=== PATIENT | male | born 1950 | race Caucasian/White ===

== ENCOUNTER 2018-05-28 01:34 | Outpatient (CLI) | payer BC ==
[2018-05-28 12:58] LABS: Hemoglobin 14.9 g/dL (14.0-18.0); Mean Corpuscular HGB CONC 33.7 g/dL (32.0-36.0); Mean Corpuscular Volume 88.9 fL (78.0-98.0); Mean Platelet Volume 8.6 fL (7.4-10.4); Platelet Count 189 thou/uL (130-400); RBC Distribution Width 11.6 % (11.5-14.5); Red Blood Cell (RBC) Count 4.95 mill/uL (4.70-6.10); White Blood Cell (WBC) Count 8.2 thou/uL (4.8-10.8)
[2018-05-28 13:08] LABS: Anion Gap 13 mmol/L (10-20); BUN (Urea Nitrogen) 18 mg/dL (8.4-25.7); Calc. Creatinine Clearance 0 mL/min (70-130); Calcium 9.7 mg/dL (7.8-10.44); Carbon Dioxide 28 mmol/L (23-31); Chloride 106 mmol/L (98-107); Estimated GFR-MDRD Greater than 90; Glucose 105 mg/dL (80-115); Potassium 4.7 mmol/L (3.5-5.1); Sodium 142 mmol/L (136-145)
== END 2018-05-28 01:35 | disposition home or self-care (01) ==
LOC: LABBT 01:34
PROVIDERS: ATTEND Neurological Surgery
DX: Z01.818 Encounter for other preprocedural examination (principal); D49.6 Neoplasm of unspecified behavior of brain
CPT/HCPCS: 80048; 85027; 93005; 93010

== ENCOUNTER 2018-05-28 09:00 | Inpatient (IN) | payer BC ==
[2018-05-29] MEDS ORDERED: Fentanyl 250 MCG/5 ML VIAL ONE (06:13)
[2018-05-29] MEDS ORDERED: Sodium Chloride 0.9% 0 ML ONE ×2 (06:46→09:05)
[2018-05-29] MEDS ORDERED: Bacitracin Zinc Ointment 30 gm TUBE ONE (06:46)
[2018-05-29] MEDS ORDERED: Mannitol 12.5 GM/50 ML ONE ×2 (06:48→08:28)
[2018-05-29] MEDS ORDERED: Fentanyl 100 MCG/2 ML VIAL ONE ×4 (08:39→14:53)
[2018-05-29] MEDS ORDERED: Papaverine 60 MG/2 ML VIAL ONE (09:05)
[2018-05-29] MEDS ORDERED: Benzonatate 100 MG CAP PO PRN (11:31)
[2018-05-29] MEDS ORDERED: Promethazine HCl 25 MG SUPP PR PRN (11:55)
[2018-05-29] MEDS ORDERED: HYDROcodone/Acetaminophen 10/325 mg Tablet PO PRN ×2 (11:55)
[2018-05-29] MEDS ORDERED: Mag-Al 1200 mg/1200 mg/30 ML UDCUP PO PRN (11:55)
[2018-05-29] MEDS ORDERED: Acetaminophen 325 MG TAB PO PRN (11:55)
[2018-05-29] MEDS ORDERED: diphenhydrAMINE 50 MG/ML VIAL IVP PRN (11:55)
[2018-05-29] MEDS ORDERED: Promethazine HCl 25 MG/ML VIAL IM PRN (11:55)
[2018-05-29] MEDS ORDERED: Cepastat Lozenges 1 LOZ PO PRN ×2 (11:55→12:30)
[2018-05-29] MEDS ORDERED: Promethazine 25 MG TAB PO PRN (11:55)
[2018-05-29] MEDS ORDERED: Ondansetron PF 4 MG/2 ML Vial IVP PRN (11:55)
[2018-05-29] MEDS ORDERED: Docusate 100 MG CAP PO PRN (11:55)
[2018-05-29] MEDS ORDERED: diphenhydrAMINE 50 MG CAP PO PRN (11:58)
[2018-05-29] MEDS ORDERED: Acetaminophen 650 MG Suppository PR PRN (12:06)
--- NOTE | 2018-05-29 12:15 | OP ---
DATE OF PROCEDURE: 05/29/2018 HAT AND CAP OPENER: Darleen Pagan PA-C PROCEDURES PERFORMED: Right parietal craniotomy, resection of tumor, stereotactic intracranial navigation. DESCRIPTION OF PROCEDURE: The patient was brought to the operating room and intubated. He was positioned supine with the head turned to the left, fixed in a Maciej heading and priming tool setter. Using the stereotactic intracranial navigation system, we registered this to the patient's head and then used this to plan the incision in the craniotomy. We next performed a horseshoe-shaped incision, flapped inferiorly and a standard craniotomy. The dura was then reflected medially. A corticotomy was performed. We immediately encountered tumor and cyst, which was aspirated. Frozen section was sent, suggestive of high-grade glioma. The tumor appearance was suggestive of high-grade glioma and had infiltrative margins throughout with no definable margin. We resected all meaty tumor and aspirated all components of cyst. We attempted to develop a margin around the tumor, but in most areas, the tumor seemed to extend, passed the radiographic abnormality. I would consider this a subtotal resection. The cavity was then irrigated and hemostasis was secured. The dura was reapproximated with 4-0 silk suture and the skull was replaced with titanium microplates and screws. The scalp was then closed in anatomic layers. Job ID: [id number]
[2018-05-29] MEDS ORDERED: Morphine 2 MG/ML SYRINGE SLOW IVP PRN (12:30)
[2018-05-29] MEDS ORDERED: Lidocaine 1% PF 5 ML VIAL ONE (15:21)
[2018-05-29] MEDS ORDERED: Esmolol 100 MG/10 ML VIAL ONE (15:21)
[2018-05-29] MEDS ORDERED: ePHEDrine 50 MG/ML VIAL ONE (15:21)
[2018-05-29] MEDS ORDERED: Rocuronium Bromide 10 MG/ML (10ML VIAL) ONE (15:21)
[2018-05-29] MEDS ORDERED: Ondansetron PF 4 MG/2 ML Vial ONE (15:21)
[2018-05-29] MEDS ORDERED: Dexamethasone 20 MG/5 ML VIAL ONE (15:21)
[2018-05-29] MEDS ORDERED: Glycopyrrolate 0.2 MG/ML 5 ML SYRINGE ONE (15:21)
[2018-05-29] MEDS ORDERED: PROPOFOL 200 MG/20 ML VIAL ONE (15:21)
[2018-05-29] MEDS: CEFAZOLIN 2 GM in Premix Bag 1 BAG IVPB SCH ×2 (16:22→23:48)
[2018-05-29] MEDS: Sodium Chloride 0.9% 1,000 ML IV SCH ×2 (16:22→23:51)
[2018-05-29] MEDS: Morphine 4 MG/ML VIAL SLOW IVP PRN ×2 (16:23→18:34)
[2018-05-29] MEDS: niCARdipine HCl 25 MG in Sodium Chloride 0.9% 250 ML 240 ML IVPB SCH ×3 (16:57→22:21)
[2018-05-29] MEDS: Loratadine 10 MG TAB PO SCH (20:18)
[2018-05-29] MEDS: Atorvastatin Calcium 40 MG TAB PO SCH (20:18)
[2018-05-29] MEDS: Lisinopril 2.5 MG TAB PO SCH ×2 (20:18→20:25)
[2018-05-29] MEDS: Famotidine 20 MG TAB PO SCH (20:19)
[2018-05-29] MEDS ORDERED: Lisinopril 20 MG TAB PO SCH (20:45)
--- NOTE | 2018-05-29 21:56 | CON ---
DATE OF CONSULTATION: HISTORY OF PRESENT ILLNESS: Ronn Villaotro is a 67-year-old gentleman, lifelong nonsmoker, status post craniotomy by Dr. Bob Sexton, Pulmonary/Critical Care, seeing while in the ICU. Except for some right posterior scapula pain, he denies any other symptoms. 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 The patient denies any recent coughing, wheezing, or shortness of breath. He has allergies and is taking some allergy medication. PAST MEDICAL HISTORY: Pertinent mainly for hypertension, environmental allergies, and high cholesterol. MEDICATIONS: Chronic medication; 1. Lisinopril 2.5. 2. Zyrtec 10. 3. Tessalon Perles _200 mg_ p.r.n. 4. ptotonix 40 mg once a day. 1. Aspirin 325. ALLERGIES: CODEINE. PAST SURGICAL HISTORY: Surgeries include a right hip surgery about a year ago and some surgery on his left hand. 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 REVIEW OF SYSTEMS: Otherwise, 10-point negative. PHYSICAL EXAMINATION: GENERAL: Awake, alert, responsive, in no distress. VITAL SIGNS: His pulse is 95, blood pressure is 141/46, sats are 96%, and respiratory rate 18. CHEST: Reveal no wheezing or crackles. CARDIAC: Normal S1 and S2. No gallops. ABDOMEN: Soft. NEUROLOGIC: Awake, alert, and responsive. LABORATORY DATA: H and H unremarkable at 14 and 42. His chemistry profile is unremarkable. GFR is 84. IMPRESSION: 1. Status post craniotomy for a right posterior fossa tumor. 2. Hypertension. 3. Allergic rhinitis. 4. High cholesterol. PLAN: Pulmonary/Critical Care will follow while in the ICU. He is right now on a Cardene drip. When he is stable, switch over to old medication. Consultation note, 70 minutes, 50% direct patient care. Job ID: [id number] MTDD
[2018-05-30] MEDS: niCARdipine HCl 25 MG in Sodium Chloride 0.9% 250 ML 240 ML IVPB SCH ×3 (00:38→07:13)
--- NOTE | 2018-05-30 04:22 | CON ---
DATE OF CONSULTATION: PRIMARY CARE PHYSICIAN: Carlos Monson MD CODE STATUS: Full code. TIME OF EVALUATION: 8:30 p.m. CHIEF COMPLAINT: Unable to see on the left side. HISTORY OF PRESENT ILLNESS: This is a 67-year-old male patient with past medical history of hypertension, high cholesterol, came to the hospital after having symptoms where the patient was unable to see on the left side of his visual field. The symptoms were severe and has been gradually getting worse with no clear triggers, no alleviating factors. The patient was admitted by Dr. Sexton and received craniotomy due to right posterior fossa high-grade glioma, as per initial results from surgery, the patient also was reportedly having confusion, by the time of my examination, he seems to be oriented and very lucid, no other significant medical problems. The symptoms were severe. The patient also has associated hypertensive emergency. During my examination, it was noted the patient is on Cardene drip of 15 mg an hour. We have been called for consultation for assistance with medical management of the patient. REVIEW OF SYSTEMS: CONSTITUTIONAL: The patient has no fever, no chills. No generalized weakness. The patient was noted to be confused. RESPIRATORY: No cough, sputum production, or shortness of breath. CARDIOVASCULAR: No chest pain or palpitations. GASTROINTESTINAL: No nausea, vomiting, diarrhea, or abdominal pain. ZINC PLATER: The patient has reportedly confusion prior to surgery with left visual field abnormalities. GENITOURINARY: No burning on urination. EXTREMITIES: No leg swelling. All other systems were reviewed and negative except for the findings mentioned above. PAST MEDICAL HISTORY: Positive for hypertension and high cholesterol. FAMILY HISTORY: Reviewed, noncontributory for current presentation. SOCIAL HISTORY: The patient lives with . PAST SURGICAL HISTORY: Right hip surgery about a year ago, and left hand surgery. ALLERGIES: CODEINE. REPORTED MEDICATIONS: 1. Lisinopril. 2. Zyrtec. 3. Tessalon. 4. Aspirin. PHYSICAL EXAMINATION: VITAL SIGNS: Blood pressure has been above 140 occasionally. The patient was in Cardene drip at 15 mg an hour. The patient is still having systolic blood pressure above 140s. No fever, heart rate has been in the 80s and may be within normal limits. GENERAL APPEARANCE: The patient is alert, oriented, not in acute distress. HEENT: Eyes, normal conjunctivae. Moist oral mucosa. Anicteric. NECK: No JVD. RESPIRATORY: Bilateral air entry. No rales or wheezes. Symmetric expansion. CARDIOVASCULAR: Normal rate, regular rhythm. No murmurs, no gallops, no edema. ABDOMEN: Soft. Normal bowel sounds. MUSCULOSKELETAL: Baseline range of motion and strength. No tenderness. SKIN: Warm, intact. No pallor. No rash. No redness. Peripheral pulses are present. Capillary refill seems to be intact. NEUROLOGIC: The patient has left basal field affected, status post craniotomy. PSYCH: Good mood. No anxiety. Seems to be with good judgment at this point. DIAGNOSTIC STUDIES: Brain MRI was done prior to surgery. The patient has right parieto-occipital mass with peripheral nodular enhancement, diffusion restriction and small volume hemorrhage within the wall. There is mild vasogenic edema with minimal mass effect, tumor in the right lateral ventricle. No other foci of enhancement. LABORATORY DATA: Labs were reviewed. The patient has white count 8.2, hemoglobin 14.9, MCV 88.9, platelet count 189. Chemistry; sodium 142, potassium 4.7, chloride 106, carbon dioxide 28, anion gap 13, BUN 18, creatinine 0.8, GFR 84, glucose 105, calcium 9.7. ASSESSMENT AND PLAN: The patient will be placed in the hospital with following medical problems: 1. Right posterior fossa high-grade glioma, status post craniotomy surgery, Dr. Sexton has admitted the patient, is following this problem. 2. Hypertensive emergency, the patient has a very high dose of Cardene drip and see blood pressure is now fully controlled after starting home medications p.o. that we will be added until we are able to stop the drip. 3. High cholesterol, low-cholesterol diet is advised. Home medications have been reconciled. 4. Deep venous thrombosis prophylaxis as per Surgery recommendations. 5. Risk assessment, high risk of complication due to recent surgery and hypertensive emergency. Critical care time more than 35 minutes spent in the patient's evaluation, patient counseling and review and evaluation of records. Job ID: [id number] MTDD
[2018-05-30] MEDS ORDERED: Amlodipine 5 MG TAB PO SCH (08:00)
[2018-05-30] MEDS: Famotidine 20 MG TAB PO SCH ×2 (08:17→21:07)
[2018-05-30] MEDS: Carvedilol 3.125 MG TAB PO SCH ×2 (08:17→21:06)
--- NOTE | 2018-05-30 08:23 | PRG ---
DATE OF SERVICE: 05/30/2018 SUBJECTIVE: Ronn Villatoro, a 67-year-old gentleman, awake, alert and responsive in the ICU. OBJECTIVE: VITAL SIGNS: Pulse 95, blood pressure 149/65, sats 98% on room air, blood pressure 130/60. He is on Cardene low-dose 3 mg. His home blood pressure medications have been initiated. CHEST: Decreased breath sounds, no wheezing. CARDIAC: Normal S1, S2. No gallops. ABDOMEN: No masses. IMPRESSION: 1. Hypertension, status post craniotomy. 2. Cough. PLAN: 1. Hopefully, we can discontinue his A-line. 2. Started Norvasc. 3. Supportive care. DISPOSITION: As per surgery. Job ID: [id number]
[2018-05-30 08:25] LABS: Sodium 139 mmol/L (136-145)
[2018-05-30] MEDS ORDERED: Lisinopril 20 MG TAB PO SCH (09:00)
--- NOTE | 2018-05-30 09:27 | PDOC.PN ---
- Subjective Encounter Start Date: 05/30/18 Encounter Start Time: 11:30 Subjective: Patient feeling well. No SOB/Chest pain. No headache. Some -: constipation, hasn't taken anything for it yet. - Objective MAR Reviewed: Yes Vital Signs & Weight: Vital Signs (12 hours) Temp Pulse BP 05/30/18 08:18 85 138/58 L 05/30/18 04:00 98.3 F 05/30/18 00:00 98.4 F Weight Admit Weight 4.691 oz Weight 208 lb 1.862 oz Most Recent Monitor Data Heart Rate from ECG 83 NIBP 136/70 NIBP BP-Mean 92 Respiration from ECG 16 SpO2 93 I&O: 05/29/18 05/30/18 05/31/18 06:59 06:59 06:59 Intake Total 4829 Output Total 2870 Balance 195 Result Diagrams: 05/30/18 07:19 Additional Labs: Accuchecks 05/30/18 05:30 POC Glucose 133 H Phys Exam - Physical Examination Constitutional: NAD HEENT: moist [facility] craniotomy site c/d/i Respiratory: no wheezing, no rales, no rhonchi Cardiovascular: RRR, no significant murmur Gastrointestinal: soft, positive bowel sounds Neurological: non-focal, moves all 4 limbs Psychiatric: normal affect, A&O x 3 Dx/Plan (1) Glioma of brain Status: Acute Comment: right posterior fossa, s/p resection by neurosurgery (2) Hypertension Code(s): I10 - ESSENTIAL (PRIMARY) HYPERTENSION Status: Acute Qualifiers: Hypertension type: essential hypertension Qualified Code(s): I10 - Essential (primary) hypertension Comment: urgency resolved, Cardene drip to keep SBP < 140 per neurosurgery (3) Hyperlipidemia Code(s): E78.5 - HYPERLIPIDEMIA, UNSPECIFIED Status: Chronic (4) Constipation Code(s): K59.00 - CONSTIPATION, UNSPECIFIED Status: Acute Comment: change colace to scheduled and add Senna prn - Plan cont current plan of care, PT/OT, DVT proph w/SCDs * . - Discharge Day Encounter end time: 11:40
[2018-05-30] MEDS ORDERED: Senokot 8.6 MG TAB PO PRN (12:53)
[2018-05-30 20:41] LABS: Sodium 142 mmol/L (136-145)
[2018-05-30] MEDS: Atorvastatin Calcium 40 MG TAB PO SCH (21:06)
[2018-05-30] MEDS: Docusate 100 MG CAP PO SCH (21:06)
[2018-05-30] MEDS: Loratadine 10 MG TAB PO SCH (21:07)
[2018-05-31 00:38] LABS: Sodium 141 mmol/L (136-145)
[2018-05-31 06:58] LABS: Sodium 136 mmol/L (136-145)
--- NOTE | 2018-05-31 07:35 | CT ---
CT BRAIN WITHOUT CONTRAST: History: Status post craniotomy. Comparison: MRI brain with and without contrast 05-28-18. FINDINGS: Since the comparison examination there has been interval performance of a right parietal craniotomy w ith partial resection of the peripherally calcified mass within the right parietal lobe. Small amount of pneumocephalus is now present within the right aspect of the cranial vault both along the anterio r frontal vertex and along the parietal vertex and within the resection cavity. There is moderate nicola rounding vasogenic edema, slightly more pronounced than seen on the comparison MR examination. No def inite acute infarct is evident. No apparent midline shift is noted. No definite hydrocephalus is evid ent. The basal cisterns are patent. There is mild partial mastoid effusions bilaterally. IMPRESSION: 1. Interval right parietal craniotomy with partial resection of the partially calcified mass within t he right parietal lobe, slightly worsening surrounding perilesional vasogenic edema with mild effacem ent of portions of the right parietal lobe cortex. 2. Small amount of pneumocephalus. 3. No midline shift of acute intracranial infarct. 4. Partial mastoid effusions bilaterally. POS: RAFAEL
[2018-05-31] MEDS: Carvedilol 3.125 MG TAB PO SCH ×2 (08:41→17:54)
[2018-05-31] MEDS: Amlodipine 5 MG TAB PO SCH (08:47)
[2018-05-31] MEDS: Famotidine 20 MG TAB PO SCH ×2 (08:48→20:19)
[2018-05-31] MEDS: Docusate 100 MG CAP PO SCH ×2 (08:48→20:19)
--- NOTE | 2018-05-31 08:52 | PRG ---
DATE OF SERVICE: 05/31/2018 SUBJECTIVE: This morning, he is awake, alert, and responsive. OBJECTIVE: VITAL SIGNS: His temperature is 98, pulse 66, blood pressure 139/92, respiratory rate 18. His I's and O's have been 5558 in, 8066 out. He was given one dose of DDAVP for presumed DI. I do not see any electrolyte this morning. CHEST: Decreased breath sounds. No wheezing. CARDIAC: Normal S1 and S2. No gallops. ABDOMEN: No masses. IMPRESSION: 1. Status post craniotomy. Initial pathology, high-grade glioma. 2. Excessive urine output, probable diabetes insipidus. We will get electrolyte profile this morning. Blood pressure is well controlled. PLAN: 1. Adjust blood pressure medication. 2. We will follow. Job ID: [id number]
--- NOTE | 2018-05-31 09:44 | PDOC.PN ---
- Subjective Encounter Start Date: 05/31/18 Encounter Start Time: 11:00 Subjective: Patient doing well. No complaints. No GUERRIER. No CP/SOB. - Objective MAR Reviewed: Yes Vital Signs & Weight: Vital Signs (12 hours) Temp Pulse BP Pulse Ox 05/31/18 08:47 70 145/85 H 05/31/18 08:00 97.6 F 05/31/18 05:00 98.4 F 05/31/18 03:08 96 05/31/18 03:00 98 F 05/31/18 00:00 98.1 F 05/30/18 23:15 98 05/30/18 22:00 98.1 F Weight Admit Weight 4.691 oz Weight 198 lb 6.656 oz Most Recent Monitor Data Heart Rate from ECG 66 NIBP 145/85 NIBP BP-Mean 105 Respiration from ECG 19 SpO2 96 I&O: 05/30/18 05/31/18 06/01/18 06:59 06:59 06:59 Intake Total 4801 4338 660 Output Total 4879 8003 610 Balance 1959 -8 50 Result Diagrams: 05/31/18 10:04 Phys Exam - Physical Examination Constitutional: NAD HEENT: moist MMs scalp dressing in place c/d/i Respiratory: no wheezing, no rales, no rhonchi Cardiovascular: RRR Gastrointestinal: soft, positive bowel sounds Neurological: non-focal, moves all 4 limbs Psychiatric: normal affect, A&O x 3 Dx/Plan (1) Glioma of brain Status: Acute Comment: right posterior fossa, s/p resection by neurosurgery (2) Hypertension Code(s): I10 - ESSENTIAL (PRIMARY) HYPERTENSION Status: Acute Qualifiers: Hypertension type: essential hypertension Qualified Code(s): I10 - Essential (primary) hypertension Comment: urgency resolved, weaned off cardene (3) Hyperlipidemia Code(s): E78.5 - HYPERLIPIDEMIA, UNSPECIFIED Status: Chronic (4) Constipation Code(s): K59.00 - CONSTIPATION, UNSPECIFIED Status: Acute Comment: change colace to scheduled and add Senna prn - Plan cont current plan of care, PT/OT large amount of UOP, possibly Diabetes Insipidus * . - Discharge Day Encounter end time: 11:10
[2018-05-31 10:31] LABS: Anion Gap 13 mmol/L (10-20); BUN (Urea Nitrogen) 13 mg/dL (8.4-25.7); Calc. Creatinine Clearance 129 mL/min (70-130); Calcium 8.9 mg/dL (7.8-10.44); Carbon Dioxide 26 mmol/L (23-31); Chloride 98 mmol/L (98-107); Estimated GFR-MDRD Greater than 90; Glucose 163 mg/dL (80-115); Potassium 3.5 mmol/L (3.5-5.1); Sodium 133 mmol/L (136-145)
[2018-05-31] MEDS ORDERED: Sodium Chloride 0.9% 1,000 ML IV SCH ×2 (14:45→17:15)
--- NOTE | 2018-05-31 15:38 | PRG ---
DATE OF SERVICE: 05/31/2018 Mr. So is doing extremely well. He is neurologically preserved and seems cognitively intact. We had an extended discussion this morning in the accompany of his and sister. The preliminary diagnosis is high-grade glioma. It has been sent out for second opinion, but that diagnosis seems fairly certain, awaiting only grading. I discussed this length with the patient and his family and will arrange for followup with us in 2 weeks for staple removal as well as followup with Radiation Oncology and Medical Oncology. By that time, we should have the 2nd opinion pathology report. The patient has had quite high urine outputs over the past 2 days, presumably related to intraoperative fluids combined with mannitol. He does not have diabetes insipidus based on normal sodium and normal urine studies. We will not give any more DDAVP. We will discontinue fluids and transfer him to the floor. We can allow his blood pressure to settle at a normal level and I presume that when he goes home, he can be on his normal blood pressure medications. The patient had a head CT in the context of evaluation for his high urine output last night, which was quite satisfactory. Job ID: [id number]
[2018-05-31] MEDS: Loratadine 10 MG TAB PO SCH (20:19)
[2018-05-31] MEDS: Atorvastatin Calcium 40 MG TAB PO SCH (20:19)
[2018-06-01] MEDS: Amlodipine 5 MG TAB PO SCH (09:22)
[2018-06-01] MEDS: Carvedilol 3.125 MG TAB PO SCH ×2 (09:22→17:34)
[2018-06-01] MEDS: Docusate 100 MG CAP PO SCH ×2 (09:23→20:18)
[2018-06-01] MEDS: Famotidine 20 MG TAB PO SCH ×2 (09:23→20:18)
--- NOTE | 2018-06-01 09:39 | PRG ---
DATE OF SERVICE: 06/01/2018 SUBJECTIVE: A 68-year-old gentleman, this morning has minimal headache. No shortness of breath. OBJECTIVE: VITAL SIGNS: Temperature 97, pulse 70, respirations 20, blood pressure is 156/72. CHEST: Decreased breath sounds. No wheezing. CARDIAC: Normal S1, S2. No gallops. ABDOMEN: No masses. IMPRESSION: 1. Status post craniotomy, high-grade glioma. 2. Central DI. Urine output was 6100, input was 3223. His serum sodium was only 133 yesterday. PLAN: Disposition as per Neurosurgery, outpatient Oncology referral. Continue present hypertensive medication. Job ID: [id number]
--- NOTE | 2018-06-01 09:50 | PRG ---
DATE OF SERVICE: 06/01/2018 SUBJECTIVE: The patient is a 68-year-old male, postoperative day #3 status post right-sided craniotomy with tumor resection. Following the surgery, he was monitored in the ICU. He has remained neurologically intact throughout his course. However, he has had high urine output. Prior labs checks showed normal serum sodium and specific gravity. His blood pressure has remained well controlled with his medications and he has not been hypotensive or tachycardic. He has minimal pain. He would like to get a shower today. The patient is awake, alert, comfortable, oriented x4. Free active range of motion of all extremities. No focal motor weakness. No neurologic deficits. Incision is intact and dry. HR RR, SBP 156 We will repeat basic metabolic panel to assess the patient's current sodium. If he may require Nephrology consult considering his persistent high UOP. We will continue to mobilize him today and get him up for shower. I have discussed this plan with the patient's family. We will follow up with labs once complete. Job ID: [id number] [facility] [place] [facility]
[2018-06-01 10:13] LABS: Anion Gap 13 mmol/L (10-20); BUN (Urea Nitrogen) 15 mg/dL (8.4-25.7); Calc. Creatinine Clearance 0 mL/min (70-130); Calcium 9.8 mg/dL (7.8-10.44); Carbon Dioxide 31 mmol/L (23-31); Chloride 106 mmol/L (98-107); Estimated GFR-MDRD Greater than 90; Glucose 118 mg/dL (80-115); Magnesium 2.2 mg/dL (1.6-2.6); Potassium 4.3 mmol/L (3.5-5.1); Sodium 146 mmol/L (136-145)
[2018-06-01] MEDS ORDERED: Dextrose 5% in Water 1,000 ML IV SCH (14:30)
[2018-06-01 18:24] VITALS: BMI 30.7
--- NOTE | 2018-06-01 19:43 | CON ---
DATE OF CONSULTATION: 06/01/2018 REASON FOR CONSULTATION: Hypernatremia. HISTORY OF PRESENT ILLNESS: A 68-year-old male with past medical history significant for hypertension and high cholesterol, who was admitted by Neurosurgery Service for right posterior fossa tumor resection. The patient reportedly had developed left-sided visual field deficit about 1 week prior to presentation. The patient subsequently had this surgery on May 29 and postop recovery has been uneventful. Unfortunately today, when the patient was noted to have acute elevation in serum sodium from 133 yesterday to 146. The patient also has been receiving normal saline up until this morning. Postoperative recovery was complicated by hypertensive emergency, for which the patient was started on Cardene drip. The patient currently, however, is off Cardene drip and blood pressure is fairly controlled. The patient denied headache, nausea, vomiting, or change in mental status. There is also no history of fever, cough, or shortness of breath. There is also no history of focal weakness or paresthesia. PAST MEDICAL HISTORY: 1. Hypertension. 2. Hyperlipidemia. 3. Tobacco abuse disorder. PAST SURGICAL HISTORY: 1. Right hip surgery. 2. Left hand surgery. FAMILY HISTORY: This was reviewed and noncontributory. SOCIAL HISTORY: The patient lives with spouse. The patient smokes cigarettes. ALLERGIES: THE PATIENT REPORTS INTOLERANCE TO CODEINE. HOME MEDICATIONS: 1. Lisinopril. 2. Zyrtec. 3. Tessalon Perles. 4. Aspirin. CURRENT MEDICATIONS: 1. Pepcid 20 mg b.i.d. 2. Amlodipine 5 mg daily. 3. Lipitor 40 mg at bedtime. 4. Carvedilol 3.125 b.i.d. 5. Loratadine 10 mg at bedtime. 6. Docusate 100 mg b.i.d. 7. Labetalol 10 mg IV every 10 minutes p.r.n. for hypertension. 8. Acetaminophen 650 mg q.4 hours p.r.n. for pain. 9. Diphenhydramine 50 mg q.6 hours p.r.n. 10. Hydrocodone/acetaminophen 10/325 one tablet q.4 hours p.r.n. 11. Morphine IV push p.r.n. as needed. 12. Zofran p.r.n. for nausea and vomiting. REVIEW OF SYSTEMS: A 12-point review of systems performed was negative other than pertinent positives and negatives included in the history of present illness. PHYSICAL EXAMINATION: VITAL SIGNS: Current vitals at 4:10 p.m. showed BP 146/84, pulse 66, respiratory rate 18, SpO2 96% on room air, and temperature 97.6. GENERAL: A middle-aged male in no obvious distress. Afebrile. Anicteric. Acyanotic. HEENT: Normocephalic. Posterior scalp surgical laceration with clips noted. Pupils are equal and reacting to light. Visual field is grossly intact. Oral mucosa is moist. NECK: Supple and nontender with full range of motion. No masses appreciated. RESPIRATORY: Good air entry bilaterally with no obvious crackle or rhonchi or use of accessory muscles. CARDIOVASCULAR: Regular rhythm and rate with normal heart sounds 1 and 2. No edema was appreciated. GI: Abdomen is full, soft, nontender, and nondistended with normal bowel sounds. EXTREMITIES: Grossly normal looking and atraumatic with no edema, erythema, or cyanosis. Distal pulses are palpable. SKIN: No obvious rash or ecchymosis appreciated. NEUROLOGIC: Conscious, alert, and oriented x3 with appropriate mental status. Cranial nerves 2-12 are grossly intact. The patient moves all extremities. LABORATORY DATA: BMP done earlier today showed sodium 146, potassium 4.3, chloride 106, CO2 of 31, BUN 15, creatinine 0.80, glucose 118, calcium 9.8, and magnesium 2.2. Serum osmolality is 314. Of note, serum sodium was 133 yesterday, but has been normal in the last 3 days, ranging from 136 to 142. Urine specific gravity done earlier today was 1.010, which is normal. ASSESSMENT AND PLAN?RECOMMENDATION: 1. Hypernatremia: Etiology is unclear, but seems to be related to normal saline infusion and poor free water intake leading to salt diuresis with obligatory water excretion. The patient is status post intracranial surgeries and is at increase risk for Diabetes insipidus but specific gravity more than 1005 and urine osmolality is consistent with preserved urine concentration ability of the kidneys hence unlikely. The patient can drink water and has been advised to drink more free water. We will, however, start the patient on dextrose infusion given acute nature of sodium increase from 133 to 146 and recent intracranial surgery and recheck serum sodium in 6 hours. We will also get urine osmolality and serum osmolality at the same time. We will also monitor intake and output. 2. Volume status: The patient seems euvolemic. 3. Hypertension: Control is acceptable at this time. Many thanks for the consult. We will follow and adjust free water intake as needed. Job ID: [id number] MTDD
[2018-06-01] MEDS: Atorvastatin Calcium 40 MG TAB PO SCH (20:18)
[2018-06-01] MEDS: Loratadine 10 MG TAB PO SCH (20:19)
--- NOTE | 2018-06-01 20:51 | PDOC.PN ---
- Subjective Encounter Start Date: 06/01/18 Encounter Start Time: 10:00 - Objective Vital Signs & Weight: Vital Signs (12 hours) Temp Pulse Resp BP BP Pulse Ox 06/01/18 19:52 98.1 F 69 18 142/76 H 96 06/01/18 16:10 97.6 F 66 18 146/84 H 96 06/01/18 12:33 97.9 F 67 18 131/76 97 06/01/18 09:22 70 156/72 H Weight Admit Weight 4.691 oz Weight 208 lb 1.862 oz Most Recent Monitor Data Heart Rate from ECG 67 NIBP 150/86 NIBP BP-Mean 107 Respiration from ECG 17 SpO2 98 I&O: 05/31/18 06/01/18 06/02/18 06:59 06:59 06:59 Intake Total 5558 3223 2200 Output Total 8066 6100 2014 [id number] 185 Result Diagrams: 06/01/18 09:45 Dx/Plan - Plan * . Review of Systems - Medications/Allergies Allergies/Adverse Reactions: Allergies Allergy/AdvReac Type Severity Reaction Status Date / Time codeine Allergy Emesis Verified 05/28/18 10:19 Medications: Current Medications Acetaminophen (Tylenol) 650 mg PO Q4H PRN PRN Reason: HEADACHE/FEVER/MILD PAIN Acetaminophen (Tylenol) 650 mg WI Q4H PRN PRN Reason: HEADACHE/FEVER/MILD PAIN Hydrocodone Bitart/Acetaminophen ([place] 10/325) 1 tab PO Q4H PRN PRN Reason: Pain 4-6 Last Admin: 05/29/18 22:21 Dose: 1 tab Hydrocodone Bitart/Acetaminophen ([place] 10/325) 2 tab PO Q4H PRN PRN Reason: Pain 7-10 Al Hydroxide/Mg Hydroxide (Maalox) 30 ml PO Q6H PRN PRN Reason: Heartburn or Indigestion Amlodipine Besylate (Norvasc) 5 mg PO DAILY [facility] Last Admin: 06/01/18 09:22 Dose: 5 mg Atorvastatin Calcium (Lipitor) 40 mg PO HS [facility] Last Admin: 06/01/18 20:18 Dose: 40 mg Benzonatate (Tessalon) 100 mg PO TIDPRN PRN PRN Reason: Cough Carvedilol (Coreg) 3.125 mg PO BID-[facility] Last Admin: 06/01/18 17:34 Dose: 3.125 mg Diphenhydramine HCl (Benadryl) 50 mg PO Q6H PRN PRN Reason: Itching & Insomnia Diphenhydramine HCl (Benadryl) 50 mg IVP Q6H PRN PRN Reason: Itching & Insomnia Docusate Sodium (Colace) 100 mg PO BID [facility] Last Admin: 06/01/18 20:18 Dose: 100 mg Famotidine (Pepcid) 20 mg PO Q12HR [facility] Last Admin: 06/01/18 20:18 Dose: 20 mg Labetalol HCl (Labetalol Hcl) 10 mg SLOW IVP Q10MIN PRN PRN Reason: TO KEEP SBP <140 Loratadine (Claritin) 10 mg PO HS [facility] Last Admin: 06/01/18 20:19 Dose: 10 mg Morphine Sulfate (Morphine) 4 mg SLOW IVP Q1H PRN PRN Reason: SEVERE BREAKTHROUGH PAIN Last Admin: 05/29/18 18:34 Dose: 4 mg Morphine Sulfate (Morphine) 2 mg SLOW IVP Q1H PRN PRN Reason: FOR MOD BREAKTHROUGH PAIN Ondansetron HCl (Zofran) 4 mg IVP Q8H PRN PRN Reason: Nausea/Vomiting Promethazine HCl (Phenergan) 12.5 mg IM Q4H PRN PRN Reason: Nausea/Vomiting Promethazine HCl (Phenergan) 12.5 mg PO Q4H PRN PRN Reason: Nausea/Vomiting Last Admin: 05/29/18 22:06 Dose: 12.5 mg Promethazine HCl (Phenergan Suppository) 12.5 mg WI Q4H PRN PRN Reason: Nausea/Vomiting Senna (Senokot) 2 tab PO HSPRN PRN PRN Reason: Constipation Last Admin: 06/01/18 09:23 Dose: 2 tab Sodium Chloride (Flush - Normal Saline) 10 ml IVF Q12HR [facility] Last Admin: 06/01/18 20:19 Dose: 10 ml Sodium Chloride (Flush - Normal Saline) 10 ml IVF PRN PRN PRN Reason: Saline Flush Throat Lozenges (Cepastat Lozenges) 1 anastacio PO Q1H PRN PRN Reason: Sore Throat
[2018-06-01 22:08] LABS: Anion Gap 14 mmol/L (10-20); BUN (Urea Nitrogen) 14 mg/dL (8.4-25.7); Calc. Creatinine Clearance 99 mL/min (70-130); Calcium 9.4 mg/dL (7.8-10.44); Carbon Dioxide 29 mmol/L (23-31); Chloride 103 mmol/L (98-107); Estimated GFR-MDRD 79; Glucose 195 mg/dL (80-115); Potassium 3.9 mmol/L (3.5-5.1); Sodium 142 mmol/L (136-145)
--- NOTE | 2018-06-01 23:15 | PRG ---
DATE OF SERVICE: 06/01/2018 SUBJECTIVE: The patient denies any new complaints at this time. No chest pain, shortness of breath, fever, chills, or focal neurologic deficit. CURRENT MEDICATIONS: Reviewed. The patient is currently on amlodipine and carvedilol along with Lipitor. OBJECTIVE: VITAL SIGNS: Temperature 97.9, pulse rate of 67, respirations 18, blood pressure 131/76 with O2 saturation 97% on room air. Intake of 2200, output 2014. GENERAL: A 68-year-old male, in no apparent distress. LUNGS: Clear to auscultation bilaterally. No wheezing or rales. HEART: S1 and S2 present. Regular rate and rhythm. ABDOMEN: Soft. Bowel sounds present. EXTREMITIES: No edema, calf tenderness. LABORATORY FINDINGS: Sodium 146 from 133, magnesium 2.2, BUN 15, and creatinine 0.8. Serum osmolality 314. IMPRESSION: 1. Polyuria. 2. Hypertension. 3. Hyperlipidemia. 4. Hyponatremia initially followed by hypernatremia. 5. Tobacco dependence. 6. Obesity with a BMI of 30.7. PLAN: We will continue amlodipine and carvedilol. We will add labetalol p.r.n. Nephrology has been consulted. I discussed with Nephrology, who recommended to start D5 water at 100. The patient was advised to maintain adequate oral free water intake. We will recheck labs including osmolality in a.m. Job ID: [id number]
[2018-06-02 04:53] LABS: Anion Gap 14 mmol/L (10-20); BUN (Urea Nitrogen) 12 mg/dL (8.4-25.7); Calc. Creatinine Clearance 109 mL/min (70-130); Calcium 9.7 mg/dL (7.8-10.44); Carbon Dioxide 28 mmol/L (23-31); Chloride 105 mmol/L (98-107); Estimated GFR-MDRD 87; Glucose 112 mg/dL (80-115); Magnesium 1.8 mg/dL (1.6-2.6); Potassium 4.2 mmol/L (3.5-5.1); Sodium 143 mmol/L (136-145)
--- NOTE | 2018-06-02 07:33 | PRG ---
DATE OF SERVICE: 06/02/2018 SUBJECTIVE: A 68-year-old male, who developed hypernatremia after intracranial surgery. The patient has no new complaints. Denied excessive thirst. Feels great otherwise. Has no history of nausea, vomiting, headache, or chest pain. OBJECTIVE: VITAL SIGNS: Temperature 97.9, pulse 61, respiratory rate 16, SpO2 of 95% on room air, BP 131/96. GENERAL: Healthy-looking middle-aged male, in no obvious distress. Afebrile, anicteric, acyanotic. HEENT: Normocephalic. Scalp surgical wound noted. Oral mucosa is moist. CARDIOVASCULAR: Regular rhythm and rate with normal heart sounds one and two. No edema appreciated. RESPIRATORY: Fair air entry bilaterally with few transmitted sounds. There is no use of accessory muscles. GI: Abdomen is full, soft, nontender, nondistended with normal bowel sounds. EXTREMITIES: Grossly normal looking and atraumatic with no edema or erythema. DIAGNOSTIC DATA: BMP this morning showed sodium 143, potassium 4.2, chloride 105, CO2 of 28, BUN 12, creatinine 0.87, glucose 112, calcium 9.7. Magnesium 1.8. Specific gravity this morning is 1.006. Urine osmolality and serum osmolality are pending at this time. ASSESSMENT AND PLAN: 1. Hypernatremia: Mild. This has resolved. Given recent intracranial surgery, diabetic insipidus is a concern. This, however, is unlikely in this patient with specific gravity more than 1.005 and normal urine osmolality, which is suggestive of ADH activity. However, the patient put out about 6 L of urine in the last 24 hours. The patient is polyuric. This may be salt- induced diuresis which is associated with obligatory free water excretion. The patient is currently off normal saline and dextrose infusion. We will monitor electrolytes, urine output and also get ADH. 2. Volume status: The patient remained euvolemic. 3. Hypertension: BP control is acceptable. Continue current treatment. Job ID: [id number] [facility]
[2018-06-02] MEDS: Amlodipine 5 MG TAB PO SCH (09:01)
[2018-06-02] MEDS: Docusate 100 MG CAP PO SCH (09:02)
[2018-06-02] MEDS: Famotidine 20 MG TAB PO SCH (09:03)
[2018-06-02] MEDS: Carvedilol 3.125 MG TAB PO SCH (09:04)
[2018-06-02 10:00] VITALS: BP 143/83; TEMP 98.2
--- NOTE | 2018-06-02 12:13 | PRG ---
DATE OF SERVICE: 06/02/2018 POSTOPERATIVE NOTE: Mr. Villatoro is now postoperative day #4 having undergone right craniotomy for tumor resection. There was concern of transient DI in the patient with increased urine output. Nephrology has been consulted. They are drawing some additional labs, but otherwise, the patient and his family note that his urine output has significantly decreased over the past 24 hours. At this time, the patient is very stable from a Neurosurgical perspective. He has good strength in all 4 extremities. He is very alert and oriented. GCS currently is 15. His incision is dry. At this time, he is ready for dismissal once he is cleared by Nephrology. Appropriate outpatient followups were provided, and the patient and his family are very appreciative of our care. Job ID: [id number]
[2018-06-02 14:25] LABS: Anion Gap 14 mmol/L (10-20); BUN (Urea Nitrogen) 13 mg/dL (8.4-25.7); Calc. Creatinine Clearance 109 mL/min (70-130); Calcium 9.6 mg/dL (7.8-10.44); Carbon Dioxide 30 mmol/L (23-31); Chloride 104 mmol/L (98-107); Estimated GFR-MDRD 87; Glucose 135 mg/dL (80-115); Potassium 4.1 mmol/L (3.5-5.1); Sodium 144 mmol/L (136-145)
--- NOTE | 2018-06-02 17:46 | PDOC.PN ---
- Subjective Encounter Start Date: 06/02/18 Encounter Start Time: 11:00 Patient seen and examined for med mngt. No new complaints. No overnight events - Objective MAR Reviewed: Yes Vital Signs & Weight: Vital Signs (12 hours) Temp Pulse Resp BP Pulse Ox 06/02/18 16:00 98 06/02/18 12:00 98 06/02/18 09:01 61 06/02/18 08:05 98.2 F 77 18 143/83 H 97 Weight Admit Weight 4.691 oz Weight 208 lb 1.862 oz Most Recent Monitor Data Heart Rate from ECG 67 NIBP 150/86 NIBP BP-Mean 107 Respiration from ECG 17 SpO2 98 I&O: 06/01/18 06/02/18 06/03/18 06:59 06:59 06:59 Intake Total 3223 2680 Output Total 6100 4415 Balance -1508 -9455 Result Diagrams: 06/02/18 13:51 Phys Exam - Physical Examination Constitutional: NAD Neck: no JVD Musculoskeletal: no edema Neurological: moves all 4 limbs Psychiatric: A&O x 3 Dx/Plan - Plan DVT proph w/SCDs IMPRESSION: 1. Polyuria. 2. Hypertension. 3. Hyperlipidemia. 4. Hyponatremia initially followed by hypernatremia. 5. Tobacco dependence. 6. Obesity with a BMI of 30.7. PLAN: Cont Coreg with Amlodipine Sodium mngt per Nephrology Will follow Review of Systems - Review of Systems Respiratory: negative: Cough, Dry, Shortness of Breath, Hemoptysis, SOB with Excertion, Pleuritic Pain, Sputum, Wheezing Cardiovascular: negative: chest pain, palpitations, orthopnea, paroxysmal nocturnal dyspnea, edema, light headedness, other - Medications/Allergies Allergies/Adverse Reactions: Allergies Allergy/AdvReac Type Severity Reaction Status Date / Time codeine Allergy Emesis Verified 05/28/18 10:19
== END 2018-06-02 17:28 | disposition home or self-care (01) | DRG 25 ==
LOC: SURG A 05-29 06:02 → CCU 05-29 14:37 → ONC 05-31 19:04
PROVIDERS: ADMIT Neurological Surgery; ATTEND Neurological Surgery
PROC: 00B00ZZ Excision of Brain, Open Approach (ICD-10-PCS; principal; 2018-05-29)
PROC: 8E09XBZ Computer Assisted Procedure of Head and Neck Region (ICD-10-PCS; 2018-05-29)
DX: C71.3 Malignant neoplasm of parietal lobe (principal); G93.6 Cerebral edema; E87.0 Hyperosmolality and hypernatremia; E87.1 Hypo-osmolality and hyponatremia; I16.1 Hypertensive emergency; E23.2 Diabetes insipidus; I10 Essential (primary) hypertension; E78.5 Hyperlipidemia, unspecified; E66.9 Obesity, unspecified; Z68.30 Body mass index [BMI] 30.0-30.9, adult; K59.00 Constipation, unspecified; F17.210 Nicotine dependence, cigarettes, uncomplicated; J30.9 Allergic rhinitis, unspecified; Z88.8 Allergy status to other drugs, medicaments and biological substances; Z79.899 Other long term (current) drug therapy; Z79.82 Long term (current) use of aspirin
CPT/HCPCS: 36415; 36416; 70450; 70553; 80048; 81002; 83735; 83930; 83935; 84295; 84588; 85027; 88307; 88331; 88334; 93005; 93010; A9577; C1713; J1100; J1165; J1642; J2001; J2150; J2270; J2405; J2440; J2597; J2704; J3010; J3490; J7050; Q0169

== ENCOUNTER 2018-05-28 11:11 | Outpatient (CLI) | payer BC ==
[2018-05-28] MEDS ORDERED: Gadobenate Dimeglumine 529 MG/1 ML (20ML VIAL) ONE (12:51)
--- NOTE | 2018-05-28 14:44 | MRI ---
MRI BRAIN WITH AND WITHOUT CONTRAST: HISTORY: Right parietal tumor. COMPARISON: None. TECHNIQUE: Multiplanar, multisequence MRI performed prior to and after the administration of contrast. FINDINGS: There is a mass in the right parietooccipital lobe measuring 3.8 x 3.2 x 4.1 cm with peripheral nodul ar enhancement and central internal necrosis. There is some low-grade diffusion restriction along th e peripheral aspect of this mass. There is mild vasogenic edema. Minimal mass effect atria right la teral ventricle. No other abnormal enhancing mass is appreciated. There is an area of susceptibility of the right par ietal bone and scalp. No acute hemorrhage. The mass itself has some small volume hemorrhage within the wall. Minimal microvascular ischemic changes. No midline shift. IMPRESSION: There is a small volume right mastoid effusion. IMPRESSION: Right parietooccipital mass with peripheral nodular enhancement, diffusion restriction, and small vol ume hemorrhage within the wall. There is mild vasogenic edema with minimal mass effect upon the atri a of the right lateral ventricle. No other foci of enhancement. POS: CORNEL
== END 2018-05-28 11:12 | disposition home or self-care (01) ==
LOC: MRI 11:11
PROVIDERS: ATTEND Neurological Surgery
DX: D49.6 Neoplasm of unspecified behavior of brain (principal); I61.9 Nontraumatic intracerebral hemorrhage, unspecified; R22.0 Localized swelling, mass and lump, head; G93.6 Cerebral edema
CPT/HCPCS: 70553

== ENCOUNTER 2019-04-01 11:47 | Outpatient (CLI) | payer BC ==
--- NOTE | 2019-04-01 13:39 | MRI ---
MRI BRAIN WITH AND WITHOUT CONTRAST: DATE: 04/01/2019 HISTORY: 68-year-old male with malignant neoplasm of right parietal lobe, glioblastoma. Follow-up. COMPARISON: 06/20/2018 TECHNIQUE: Multiplanar, multisequence MRI of the brain performed pre- and post-IV injection of gadolinium based contrast agent. FINDINGS: Right parietal craniotomy changes. Deep to that, the large right parietal postsurgical intra-axial he matoma has become much smaller. It was previously approximately 3.8 x 2.5 cm (on the prior MRI, only axial images were performed, no coronal or sagittal). Currently, the enhancing lesion has collap sed and has very irregular margins with dimensions of roughly 2 x 1.5 x 1 cm. There is hemosiderin associated with this. The surrounding region of vasogenic edema has become smaller. Currently, there is a region of T2 hyperintensity in the right parietal lobe which could represent a combination of vasogenic edema and gliosis. There is a new finding of ex vacuo dilation of the trigone and occipital horn of the right lateral ventricle due to interval resolution of the mass effect. The previously demonstrated mild right to left subfalcine herniation has resolved. Currently there is no satellite l esion. No mass effect, midline shift, extra-axial fluid collection, or obstructive hydrocephalus. Again noted is the right mastoid effusion. IMPRESSION: 1. Significant interval decrease in the size of the immediate postoperative hematoma in the right par ietal lobe, deep to the craniotomy bone flap, with interval improvement in the mass effect and surrounding edema. 2. Currently, there is a very irregularly-shaped enhancing intra-axial lesion in this location which probably represents recurrent or residual neoplastic tumor.
== END 2019-04-01 11:48 | disposition home or self-care (01) ==
LOC: MRI 11:47
PROVIDERS: ATTEND Internal Medicine Hematology & Oncology
DX: C71.3 Malignant neoplasm of parietal lobe (principal); G97.61 Postprocedural hematoma of a nervous system organ or structure following a nervous system procedure; G93.6 Cerebral edema
CPT/HCPCS: 70553

== ENCOUNTER 2019-07-29 08:39 | Outpatient (CLI) | payer BC ==
[2019-07-29 09:25] LABS: Estimated GFR-MDRD - POC Greater than 90
--- NOTE | 2019-07-29 10:25 | MRI ---
MRI BRAIN WITH AND WITHOUT CONTRAST: DATE: 07/29/2019 HISTORY: 69-year-old male with ICD-10: C 71.3 malignant neoplasm of right parietal lobe. Follow-up. (Reportedl y glioblastoma). COMPARISON: 04/01/2019 TECHNIQUE: Multiplanar, multisequence MRI of the brain performed pre- and post-IV injection of gadolinium based contrast agent. FINDINGS: Again noted are the right parietal craniotomy changes, deep to which there is some intra-axial hemosi mayo, and a moderate-sized region of right parietal intra-axial T2 hyperintensity involving cortex and white matter, including periventricular white matter surrounding the trigone and occipital horn o f the right lateral ventricle. The T2 hyperintensity may represent a combination of gliosis, chronic ischemic white matter changes, and possibly residual vasogenic edema. Associated with this, a gain noted is the very irregularly shaped pattern of intra-axial enhancement which was previously measured as roughly 2 x 1.5 x 1 cm. The pattern is suspicious for recurrent or residual neoplastic ma terial. There are no new satellite lesions. No mass effect or midline shift. No acute hemorrhage. No restricted diffusion. No interval change overall. IMPRESSION: 1. No interval change overall. 2. Despite the stability over 4 months, the findings are still highly suspicious for recurrent or res idual neoplastic material in the right parietal lobe just deep to the craniotomy flap.
== END 2019-07-29 08:40 | disposition home or self-care (01) ==
LOC: SCSMRI 08:39
PROVIDERS: ATTEND Internal Medicine Hematology & Oncology
DX: C71.3 Malignant neoplasm of parietal lobe (principal)
CPT/HCPCS: 36415; 70553; 82565; 85025

== ENCOUNTER 2020-02-01 09:08 | Inpatient (IN) | payer MEDICARE, BC ==
[~2020-02-01 09:08] MED LIST: levETIRAcetam In NaCl (Iso-Os) 1,000 MG in Premix Bag 1 BAG IVPB SCH
[2020-02-01 10:16] VITALS: BMI 30.2
[2020-02-01] MEDS ORDERED: Senokot S 8.6-50 MG TAB PO PRN (10:29)
[2020-02-01] MEDS ORDERED: Lorazepam 2 MG/ML VIAL SLOW IVP PRN (11:05)
[2020-02-01] MEDS ORDERED: FLU VACC QS2020-21(65YR UP)/PF 240 MCG/0.7 ML SYRINGE IM ONE (11:15)
[2020-02-01] MEDS: Famotidine 20 MG TAB PO SCH ×2 (11:16→21:07)
[2020-02-01] MEDS: Dexamethasone 4 mg/ml Vial SLOW IVP SCH ×2 (11:16→17:39)
[2020-02-01] MEDS ORDERED: levETIRAcetam In NaCl (Iso-Os) 1,000 MG in Premix Bag 1 BAG IVPB SCH (12:58)
[2020-02-01] MEDS: Sodium Chloride 0.9% 1,000 ML IV SCH (13:08)
--- NOTE | 2020-02-01 13:15 | HP ---
CHIEF COMPLAINT: Change in mental status with possible seizure. HISTORY OF PRESENT ILLNESS: The patient is a very pleasant 69-year-old male with history of glioblastoma, currently on oral chemotherapy. He takes it 5 days out of a month, finished about 2 days ago, status post radiation and surgery, who comes into the hospital with change in mental status x1 day. The patient's is at the bedside, states that for the past couple of weeks to couple of months, she has noticed a significant decline in the patient. However, last night, he was found around the bedroom entrance and had some weakness of the left extremity and noted some twitching. At this time, EMS was called and the patient was brought into the hospital. Per the ER notes, the patient was given, appeared to be a petit mal seizure and it was focal and ongoing. The patient received multiple doses of Ativan and was admitted to the hospital for further evaluation. He was also given in the ER. He did have a CT of the brain, which indicated a vasogenic edema throughout the right parietal region. The patient's last any sort of imaging per was in June. PAST MEDICAL HISTORY: He has a history of hypertension and glioblastoma, which is currently being treated and high cholesterol. FAMILY HISTORY: No history of heart disease or stroke. SOCIAL HISTORY: He lives with his . Drinks a glass of wine. No drug use. No smoking history. He is a full code. PAST SURGICAL HISTORY: He has had right hip surgery about a year ago, left hand surgery, and also had right-sided craniotomy with tumor resection. ALLERGIES: HE IS ALLERGIC TO CODEINE. MEDICATIONS: He is on the following; 1. Norvasc 5 mg daily. 2. Atorvastatin 40 mg at bedtime. 3. Tessalon Perles 100 mg as needed. 4. Carvedilol 3.125 b.i.d. REVIEW OF SYSTEMS: All negative except for the ones mentioned above in the HPI. PHYSICAL EXAMINATION: VITAL SIGNS: As of the following; temperature 98.1, pulse 83, respiratory rate 15, oxygen saturation 95% on room air, and blood pressure 148/53. GENERAL: He is awake, however, drowsy, easily arousable. He follows commands. CV: S1 and S2 present. No murmurs, rubs, or gallops. LUNGS: Clear to auscultation. No rhonchi or wheezes noted. ABDOMEN: Soft and nontender. Bowel sounds are present x2. NEUROVASCULAR: Neurovascular-renee, he does have some weakness to the left upper extremity. He is unable to squeeze my hand, however, the right upper and lower is intact. In the left lower extremity, he is able to move. He is able to follow simple commands currently. SKIN: No cuts, lesions, or bruises noted. LABORATORY RESULTS: As of the following; sodium of 141, potassium of 4.3, BUN of 16, and creatinine 0.80. His prolactin is 42. LFTs are normal. Hematology; WBC of 9.3, hemoglobin of 14.8, hematocrit of 43.6, and platelets of 228. As I mentioned, he had a CT of the head, which did indicate that he does have a revision neck edema noted to the right parietal region. ASSESSMENT AND PLAN: The patient is a very pleasant 69-year-old male, who presents to the hospital with change in mental status. 1. Acute metabolic encephalopathy, most likely secondary to new-onset seizure. We will start him on some steroids. We will do an MRI brain with and without contrast. We will get Neurology. We will put him on Keppra since the patient received and per the ER doctor, he did have some rash on his abdomen area, unclear if it is from the medication or something else. Most likely, he will get an EEG. We will put on seizure precautions. We will also start him on some IV hydration since he appears to be a little drowsy and has not been able to eat or drink very much. 2. New-onset seizure. Again, we will continue everything as indicated in problem #1. 3. Glioblastoma. He is currently on oral chemotherapy, which is named temozolomide. He finished 2 days ago. He takes every month for 5 days. He also follows up with Radiation Oncology. I will consult Oncology as a courtesy. 4. Deep venous thrombosis prophylaxis. We will put the patient on SCDs for now. 5. Hypertension. We will continue his home medications. Job ID: [id number]
--- NOTE | 2020-02-01 14:00 | CON ---
NEUROLOGY CONSULTATION DATE OF CONSULTATION: 02/01/2020 REASON FOR CONSULTATION: Altered mental status/seizure activity. HISTORY OF PRESENT ILLNESS: Mr. Villatoro is a 69-year-old male with medical history significant for glioblastoma, currently on oral chemotherapy and status post radiation and surgery presented to the hospital with Acute change of mental status since the last one day. Per , for the past couple of months she noted significant decline in the functional activity of the patient. However, last night, he was found around the bedroom entrance and has weakness of the left upper extremity with twitching associated with confusion. She called the EMS and he was brought to the emergency room. Per emergency room notes, he had focal seizure- like activity on the left side. He received multiple doses of Ativan and was also given Dilantin. Head CT was done, which showed vasogenic edema throughout the right parietal region. The last imaging was in June 2019 per . REVIEW OF SYSTEMS: Unobtainable due to the patient's mental status. PAST MEDICAL HISTORY: Hypertension, glioblastoma, hypercholesterolemia. PAST SURGICAL HISTORY: Status post resection of glioblastoma. He has right hip surgery about a year ago and hand surgery and right-sided craniotomy with tumor resection. FAMILY HISTORY: No family history of stroke or heart disease. There is also no family history of seizures. SOCIAL HISTORY: , lives with his . Drinks a glass of wine daily. No illegal drug use or smoking history. ALLERGIES: CODEINE. HOME MEDICATIONS: The denies any prior history of seizures, and he is not on any seizure medications at any point during his treatment with treatment for glioblastoma. 1. Norvasc 5 mg daily. 2. Atorvastatin 40 mg at bedtime. 3. Tessalon Perles 100 mg as needed. 4. Carvedilol 3.125 mg b.i.d. PHYSICAL EXAMINATION: VITAL SIGNS: Blood pressure 140/50, pulse 80, respiratory rate 18. CVS: Regular rate and rhythm. CHEST: Clear. ABDOMEN: Soft. NECK: Supple. NEUROLOGIC: Mental status, the patient is very somnolent. He knows his name. He intermittently follow commands. Does not maintain any eye contact. Motor, muscle tone and bulk are normal. He is moving all extremities right greater than left. Cerebellar, did not cooperate with the testing. Gait deferred due to patient's safety reason. Cranial nerves, pupils 4 mm, round and reactive to light. Face symmetric. Tongue midline. Moves neck in both directions. DATA REVIEWED: I reviewed the labs and the head which showed edema in the right parietal region. ASSESSMENT AND PLAN: Mr. Ronn Villatoro is a 69-year-old male presented with acute mental status change since the last 24 hours and focal seizure in the emergency room. He was already given Ativan and Dilantin. He had some sort of allergic reaction with Dilantin with increased itching. Discontinue Dilantin. He already got 1 g of Keppra, consider loading him with another g of Keppra and give Ativan 1 mg IV now since left upper extremity twitching was observed during the examination to prevent further seizures. EEG to rule out subclinical seizure activity, which may require more aggressive management of the seizure disorder. Observe seizure precautions. Ativan 2 mg IV for seizure greater than 2 minutes. N.p.o. until cleared by Speech. Start Keppra maintenance dose 1 g IV q.12 hours. Continue medical management per primary team. Consider Oncology input regarding glioblastoma management. MRI of the brain with and without contrast to rule out recurrence of the lesion which may require neurosurgical intervention. Neuro checks every 2 hours. Continue PT/OT. DVT prophylaxis. We will continue to follow. Plan discussed in detail with the nursing staff. Thank you for the consult. Job ID: [id number] MTDD
[2020-02-01] MEDS ORDERED: Lorazepam 2 MG/ML VIAL SLOW IVP SCH (14:15)
[2020-02-01] MEDS ORDERED: Benzonatate 100 MG CAP PO PRN (15:00)
[2020-02-01] MEDS ORDERED: Magnevist 469MG/ML 20 ML VIAL ONE (15:34)
--- NOTE | 2020-02-01 16:12 | PDOC.EEG ---
Neurology EEG Report - Report Report: This EEG was performed using 24 channel apiOmat video digital EEG machine with 24 disc electrodes. This was an extended 2 hours 10 minutes of EEG recording. Digital analysis of the EEG was done for Justin and seizure detection which revealed no abnormalities. Background: The posterior background rhythm is not observed. Photic stimulation: No response seen with photic stimulation. Hyperventilation: Not performed. Sleep: None. EEG diagnosis: Generalized irregular theta activity seen throughout the recording. Absence of posterior background rhythm. Clinical interpretation: This EEG is consistent with moderate generalized nonspecific cerebral dysfunction.
--- NOTE | 2020-02-01 17:37 | MRI ---
EXAM: MRI Brain W WO Con DATE: 02/01/2020 4:39 PM INDICATION: History of glioblastoma multiform he with new onset seizures COMPARISON: MR the brain with and without contrast dated July 29, 2019 FINDING: Multiplanar multisequence MR images were obtained of the brain with and without contrast ut ilizing 20 cc of MultiHance. There is postprocedural changes of a craniotomy involving the right parietal skull. The irregular enh ancing mass at the right parietal resection site that demonstrates a persistent abnormal signal and irregular enhancement. Moderate amount of residual hemosiderin is seen near the resection site. The i rregular enhancement appears to extend into the right posterior splenium of the corpus callosum. There is now a new irregular enhancing mass involving the right body of the corpus callosum measuring 3.4 cm. There is a new small mass seen along the right lateral margin of the posterior horn of the right lateral ventricle on image 18 series 5 measuring 5.6 mm suspicious for small satellite lesion. There is a new enhancing mass seen just inferior to the posterior horn of the right lateral ventricle, within the right occipital lobe, measure 9.5 mm suspicious for regional spread of tumor. T here is worsening vasogenic edema of the right parietal lobe and right occipital lobe. There is some persistent T2 hyperintensity within the periventricular matter of the left posterior parietal an d occipital lobes likely related to radiation induced white matter changes. Some foci of restricted diffusion are seen with the new mass in the right body of the corpus callosum as well as the foci of irregular enhancement involving the right parietal lobe resection site. Small amount of resection diffusion is seen involving the lesion just inferior to the right lateral ventricle posterior horn. N o definite acute infarct or intracranial hemorrhage is evident. Motion artifact on many of the sequences limits image detail. There are are flow void seen within the major intracranial vessels. Na tive lenses been replaced. There is a mastoid effusion on the right. IMPRESSION: Worsening malignancy of the right parietal lobe with now tumor extension into the right splenium and right body of the corpus callosum with additional satellite lesions seen within the right parietal lobe adjacent to the lateral margin of the posterior horn of the lateral ventricle as well as within the right occipital lobe just inferior to the right lateral ventricle posterior horn. There is worsening vasogenic edema of the right parietal lobe and right occipital region.
[2020-02-01] MEDS: Carvedilol 3.125 MG TAB PO SCH (17:39)
[2020-02-01] MEDS: Acetaminophen 325 MG TAB PO PRN (21:07)
[2020-02-01] MEDS: Atorvastatin Calcium 40 MG TAB PO SCH (21:07)
[2020-02-02] MEDS: Dexamethasone 4 mg/ml Vial SLOW IVP SCH ×4 (00:38→17:32)
[2020-02-02] MEDS: levETIRAcetam In NaCl (Iso-Os) 1,000 MG in Premix Bag 1 BAG IVPB SCH ×2 (00:43→13:56)
[2020-02-02] MEDS: Sodium Chloride 0.9% 1,000 ML IV SCH ×2 (02:50→16:30)
[2020-02-02 05:33] LABS: #Lymphocytes 0.9 thou/uL (1.20-3.40); #Monocytes 0.2 thou/uL (0.11-0.59); #Neutrophils 10.7 thou/uL (1.40-6.50); %Eosinophils 0.1 % (0.0-10.0); %Lymphocytes 7.3 % (21.0-51.0); %Monocytes 1.6 % (0.0-10.0); %Neutrophils 90.9 % (42.0-75.0); Elliptocytes SLIGHT = 2-5 cells (100X) (0-1/hpf); Hemoglobin 11.5 g/dL (14.0-18.0); MDiff Complete? YES; Mean Corpuscular HGB CONC 27.2 g/dL (32.0-36.0); Mean Corpuscular Hemoglobin 24.1 pg (27.0-31.0); Mean Corpuscular Volume 88.5 fL (78.0-98.0); Mean Platelet Volume 8.2 fL (7.4-10.4); Platelet Count 204 thou/uL (130-400); Platelet Morphology Comment Appears Adequate; RBC Distribution Width 12.6 % (11.5-14.5); Red Blood Cell (RBC) Count 4.77 mill/uL (4.70-6.10); White Blood Cell (WBC) Count 11.7 thou/uL (4.8-10.8)
[2020-02-02 05:38] LABS: Anion Gap 14 mmol/L (10-20); BUN (Urea Nitrogen) 14 mg/dL (8.4-25.7); Calc. Creatinine Clearance 125 mL/min (70-130); Calcium 9.3 mg/dL (7.8-10.44); Carbon Dioxide 23 mmol/L (23-31); Chloride 109 mmol/L (98-107); Estimated GFR-MDRD Greater than 90; Glucose 174 mg/dL (80-115); Potassium 4.2 mmol/L (3.5-5.1); Sodium 142 mmol/L (136-145)
--- NOTE | 2020-02-02 07:53 | PDOC.HOSPP ---
- Subjective Encounter Date: 02/02/20 Encounter Time: 07:51 Subjective: Patient seen and examined. No new complaints. No overnight events. The patient says that he is feeling fine. He says he has some difficulty with his left hand stable helper, saying it is a little weaker than normal. He also says he has difficulty with mumbling his speech at times, however, this has been ongoing since his original diagnosis, no worsening. He denies any headache, vision changes, chest pain or SOB. He denies any abdominal pain, nausea or constipation/diarrhea. - Objective Vital Signs & Weight: Vital Signs (12 hours) Temp Pulse Resp BP Pulse Ox 02/02/20 07:29 97.4 F L 79 16 141/85 H 92 L 02/02/20 03:19 97.5 F L 79 16 128/74 92 L 02/01/20 23:11 98.1 F 79 16 123/71 93 L Weight Weight 204 lb 11.2 oz I&O: 02/01/20 02/02/20 02/03/20 07:59 06:59 06:59 Intake Total Output Total Balance Result Diagrams: 02/02/20 05:02 02/02/20 05:02 Hospitalist ROS - Review of Systems All other systems reviewed; all pertinent +/- noted in HPI/Subj - Medication Medications: Active Medications Generic Name Dose Route Start Last Admin Trade Name Freq PRN Reason Stop Dose Admin Acetaminophen 650 mg 02/01/20 10:26 02/01/20 21:07 Acetaminophen 325 Mg Tab PO 650 mg Q4H PRN Administration Headache/Fever/Mild Pain (1-3) Atorvastatin Calcium 40 mg 02/01/20 21:00 02/01/20 21:07 Atorvastatin Calcium 40 Mg Tab PO 40 mg HS AG Administration Carvedilol 3.125 mg 02/01/20 17:00 02/01/20 17:39 Carvedilol 3.125 Mg Tab PO 3.125 mg BID-WM AG Administration Dexamethasone 4 mg 02/01/20 12:00 02/02/20 06:04 Dexamethasone 4 Mg/Ml Vial SLOW IVP 4 mg Q6HR AG Administration Famotidine 20 mg 02/01/20 09:00 02/01/20 21:07 Famotidine 20 Mg Tab PO 20 mg BID AG Administration Sodium Chloride 1,000 mls @ 75 mls/hr 02/01/20 12:15 02/02/20 02:50 Normal Saline 0.9% IV 1,000 mls .[id number] AG Administration Levetiracetam 1,000 mg/ Device 100 mls @ 200 mls/hr 02/02/20 01:00 STAIN MAKER 02/02/20 00:43 IVPB 100 mls 0100,1300 AG Administration Lorazepam 2 mg 02/01/20 11:05 02/01/20 16:59 Lorazepam 2 Mg/Ml Vial SLOW IVP 2 mg Q4H PRN Administration Seizures - Exam General Appearance: NAD. negative: ill appearing General - other findings: somnolent Eye: PERRL, anicteric sclera ENT: normocephalic atraumatic, dry oral mucosa Neck: supple, symmetric Heart: RRR, no murmur, no gallops, no rubs, normal peripheral pulses Respiratory: CTAB, no wheezes, no rales, no ronchi, normal chest expansion Gastrointestinal: soft, non-tender, normal bowel sounds, no guarding, no rigidity Extremities: no cyanosis, no edema Neurological: negative: speech deficit, vision deficit Neurological - other findings: Right stable helper mildly weakner than left Psychiatric: normal affect, somnolent Psychiatric - other findings: oriented x 3 Hosp A/P (1) Seizure Code(s): R56.9 - UNSPECIFIED CONVULSIONS Status: Acute (2) Glioma of brain Status: Chronic (3) Hypertension Code(s): I10 - ESSENTIAL (PRIMARY) HYPERTENSION Status: Chronic Qualifiers: Hypertension type: essential hypertension Qualified Code(s): I10 - Essential (primary) hypertension (4) Hyperlipidemia Code(s): E78.5 - HYPERLIPIDEMIA, UNSPECIFIED Status: Chronic - Plan # Seizure Continue keppra IVPB Neuro recs. appreciated. EEG pending. Consult neurosx and oncology. Continue Dexamethasone. Ativan prn seizures. Seizure precautions, neuro checks. #Glioblastoma MRI report worsening malignancy of right parietal lobe with extension and vasogenic edema. Continue dexamethasone. Oncology consultation pending. #HTN Today BP 141/85 Continue home dose carvedilol. Restart home dose norvasc. #HLD Continue home dose Atorvastatin. Discussed case with Dr. Kaplan.
[2020-02-02] MEDS: Amlodipine 5 MG TAB PO SCH ×2 (09:27→20:25)
[2020-02-02] MEDS: Famotidine 20 MG TAB PO SCH ×2 (09:27→20:25)
[2020-02-02] MEDS: Carvedilol 3.125 MG TAB PO SCH ×2 (09:27→17:32)
--- NOTE | 2020-02-02 11:40 | PDOC.NEUPN ---
- Subjective Encounter Date: 02/02/20 Subjective: Patient somnolent but alert and oriented to person and place and knows his date of . No further seizures since admission. - Objective Vital Signs & Weight: Vital Signs (12 hours) Temp Pulse Resp BP Pulse Ox 02/02/20 09:27 79 02/02/20 07:29 97.4 F L 79 16 141/85 H 92 L 02/02/20 03:19 97.5 F L 79 16 128/74 92 L Weight Weight 204 lb 11.2 oz I&O: 02/01/20 02/02/20 02/03/20 07:59 06:59 06:59 Intake Total 240 Output Total Balance 240 Result Diagrams: 02/02/20 05:02 02/02/20 05:02 Radiology Reviewed by me: Yes EKG Reviewed by me: Yes ROS - Review of Systems ROS unobtainable: due to mental status (Somnolence) - Medication Medications: Active Medications Generic Name Dose Route Start Last Admin Trade Name Freq PRN Reason Stop Dose Admin Acetaminophen 650 mg 02/01/20 10:26 02/01/20 21:07 Acetaminophen 325 Mg Tab PO 650 mg Q4H PRN Administration Headache/Fever/Mild Pain (1-3) Amlodipine Besylate 5 mg 02/02/20 09:00 02/02/20 09:27 Amlodipine 5 Mg Tab PO 5 mg BID AG Administration Atorvastatin Calcium 40 mg 02/01/20 21:00 02/01/20 21:07 Atorvastatin Calcium 40 Mg Tab PO 40 mg HS AG Administration Carvedilol 3.125 mg 02/01/20 17:00 02/02/20 09:27 Carvedilol 3.125 Mg Tab PO 3.125 mg BID-WM AG Administration Dexamethasone 4 mg 02/01/20 12:00 02/02/20 06:04 Dexamethasone 4 Mg/Ml Vial SLOW IVP 4 mg Q6HR AG Administration Famotidine 20 mg 02/01/20 09:00 02/02/20 09:27 Famotidine 20 Mg Tab PO 20 mg BID AG Administration Sodium Chloride 1,000 mls @ 75 mls/hr 02/01/20 12:15 02/02/20 02:50 Normal Saline 0.9% IV 1,000 mls .[id number] AG Administration Levetiracetam 1,000 mg/ Device 100 mls @ 200 mls/hr 02/02/20 01:00 RISK CONSULTANT 02/02/20 00:43 IVPB 100 mls 0100,1300 AG Administration Lorazepam 2 mg 02/01/20 11:05 02/01/20 16:59 Lorazepam 2 Mg/Ml Vial SLOW IVP 2 mg Q4H PRN Administration Seizures - Exam General Appearance: NAD Eye: PERRL ENT: normocephalic atraumatic Neck: supple Respiratory: CTAB Cardiovascular: RRR Gastrointestinal: soft Extremities: no cyanosis Skin: normal turgor Neurological: no new deficit Musculoskeletal: normal tone, no muscle wasting PSYCH: oriented to person, oriented to place, somnolent Results - Labs Result Diagrams: 02/02/20 05:02 02/02/20 05:02 Lab results: WBC 11.7 thou/uL (4.8-10.8) H 02/02/20 05:02 Hgb 11.5 g/dL (14.0-18.0) L 02/02/20 05:02 Hct 42.2 % (42.0-52.0) 02/02/20 05:02 MCV 88.5 fL (78.0-98.0) 02/02/20 05:02 Plt Count 204 thou/uL (130-400) 02/02/20 05:02 Neutrophils % 90.9 % (42.0-75.0) H 02/02/20 05:02 Sodium 142 mmol/L (136-145) 02/02/20 05:02 Potassium 4.2 mmol/L (3.5-5.1) 02/02/20 05:02 Chloride 109 mmol/L (98-107) H 02/02/20 05:02 Carbon Dioxide 23 mmol/L (23-31) 02/02/20 05:02 BUN 14 mg/dL (8.4-25.7) 02/02/20 05:02 Creatinine 0.73 mg/dL (0.7-1.3) 02/02/20 05:02 Glucose 174 mg/dL (80-115) H 02/02/20 05:02 Calcium 9.3 mg/dL (7.8-10.44) 02/02/20 05:02 - Radiology Interpretation MRI - head Status: image reviewed by me, report reviewed by me Additional Comment: MRI of the brain with and without contrast showed worsening of the tumor with vasogenic edema. PN A/P (1) Seizure Code(s): R56.9 - UNSPECIFIED CONVULSIONS Status: Acute (2) Glioma of brain Status: Chronic (3) Hyperlipidemia Code(s): E78.5 - HYPERLIPIDEMIA, UNSPECIFIED Status: Chronic (4) Hypertension Code(s): I10 - ESSENTIAL (PRIMARY) HYPERTENSION Status: Chronic Qualifiers: Hypertension type: essential hypertension Qualified Code(s): I10 - Essential (primary) hypertension - Plan Daily Plan: plan discussed w/ family, PT/OT, speech therapy, DVT proph w/SCDs Mr. Villatoro is a 69-year-old male with medical history significant for glioblastoma s/p resection and chemotherapy presented with new onset seizure- like activity. The patient had twitching of the left upper extremity associated with confusion consistent with focal motor seizures. He was loaded with Keppra and given Ativan which aborted the seizure activity. He also got a load of Dilantin which resulted in allergic reaction so Dilantin was discontinued.. EEG performed yesterday which was negative for seizure activity. Continue Keppra 1 g IV every 12 hours. Switch to oral once patient is more alert and able to take oral intake. Neurochecks every 2 hours. Observe seizure precautions. Ativan 2 mg IV for seizure greater than 2 minutes. MRI of the brain reviewed which shows interval worsening in the size of the tumor with vasogenic edema. Consider oncology and neurosurgery input. Continue Decadron for vasogenic edema Strict control of blood pressure and blood glucose. Repeat EEG to assess interictal activity Continue home medications. Continue medical management per primary team. Plan discussed in detail with the patient, patient's and also with the nursing staff.
--- NOTE | 2020-02-02 13:03 | PDOC.EEG ---
Neurology EEG Report - Report Report: This EEG was performed using 24 channel Zafu video digital EEG machine with 24 disc electrodes. This was an extended 2 hours 4 minutes of EEG recording. Digital analysis of the EEG was done for Justin and seizure detection which revealed no abnormalities. Background: The posterior background rhythm is not observed. Photic stimulation: No response seen with photic stimulation. Hyperventilation: Not performed. Sleep: None. EEG diagnosis: Intermitent irregular theta activity seen throughout the recording. Absence of posterior background rhythm. Clinical interpretation: This EEG is consistent with moderate generalized nonspecific cerebral dysfunction.
--- NOTE | 2020-02-02 16:08 | CON ---
DATE OF CONSULTATION: REASON FOR CONSULT: Glioblastoma. HISTORY OF PRESENT ILLNESS: Mr. 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 He is status post right parietal craniotomy and gross tumor resection in May of 2018. He underwent radiation therapy with Temodar, that was completed in August of last year. He began Optune cap in January of 2019. His last MRI was in July, which showed postsurgical changes and a small area of enhancement near the surgical site. It was measuring 2 cm in July. He presented to the emergency room yesterday with altered mental status and a fall. There was some left arm twitching consistent with seizure. He underwent a brain MRI here, which showed the enhancing mass in the right parietal resection site. There was a new irregular mass involving the measuring 3.4 cm. There was a new mass seen on the right lateral margin of the posterior horn of the right lateral ventricle. There was a new enhancing mass just inferior to the posterior horn of the right lateral ventricle. There was worsening vasogenic edema. The patient was started on antiseizure medicine and steroids. He has been seen by Neurology. Per the , his mental status did improve after initiation of steroids. He is resting comfortably at bedside. No seizure activity since arrival. PAST MEDICAL HISTORY: 1. Grade 4 glioblastoma of the right parietal lobe. 2. Hypertension. 3. Hyperlipidemia. 4. History of basal cell skin cancer. PAST SURGICAL HISTORY: 1. Right parietal craniotomy with resection of tumor and stereotactic intracranial navigation in May 2018. 2. Left thumb tendon repair. 3. Cataract surgery. 4. Right hip replacement. ALLERGIES: TO CODEINE. HOME MEDICATIONS: 1. Atorvastatin 40 mg. 2. Norvasc 5 mg. 3. Coreg 3.125 mg b.i.d. 4. Temodar 180 mg for 5 days every 28 days. FAMILY HISTORY: No family history of cancer. SOCIAL HISTORY: , has 3 children. Lives with his spouse. No alcohol, tobacco, or illicit drug use. REVIEW OF SYSTEMS: Unable to obtain secondary to sleeping. PHYSICAL EXAMINATION: VITAL SIGNS: Temperature is 97.5, pulse is 77, respiratory rate is 20, blood pressure is 119/71, and he is 93% on room air. GENERAL: A well-developed, well-nourished male, in no acute distress. HEENT: Normocephalic and atraumatic. NECK: Supple. CV: Regular rate and rhythm. LUNGS: Clear. ABDOMEN: Soft. Bowel sounds are positive. EXTREMITIES: No clubbing, cyanosis, or edema. NEUROLOGIC: The patient is somnolent secondary to medication. PERTINENT LABORATORY DATA AND X-RAYS: Current WBCs are 11.7, hemoglobin is 11.5, hematocrit is 42.2, platelet count is 204,000, 91% neutrophils, and 7% lymphocytes. Sodium 142, potassium 4.2, chloride 109, CO2 is 23, BUN is 14, creatinine 0.73, and calcium 9.3. Radiology per HPI. ASSESSMENT: 1. Glioblastoma with recent progression. 2. New onset seizures. DISCUSSION: The patient has been started on seizure medication and has had no activity since arrival. He has also been started on steroids with improvement in his mental status. The patient clearly has progression on MRI. On discussion with the , they have not discussed advance directives or wishes. We will have Palliative Care see the patient. Plan to discuss options with Dr. Kevin tomorrow. Continue current medicines and we will follow along with his hospital course. Job ID: [id number] MTDD
[2020-02-02] MEDS: Atorvastatin Calcium 40 MG TAB PO SCH (20:25)
--- NOTE | 2020-02-02 23:41 | CON ---
DATE OF CONSULTATION: 02/02/2020 HISTORY OF PRESENT ILLNESS: Mr. Villatoro is a 69-year-old male with a past medical history of grade 4 glioblastoma of the right parietal lobe, status post resection by our team on 05/29/2018. Following the surgery, he underwent radiation therapy with Temodar, completed August of last year. He is also continuing to do oral chemotherapy and followed by Oncology and Radiation Oncology teams. He reports he was doing well until the last few months. He had some intermittent confusion over the last few weeks and also a new onset seizure on 02/01/2020. He was admitted to the medicine team for further evaluation and management. He has also been seen by Neurology who have started him on Keppra for his seizure event. His new MRI of the brain with and without contrast is notable for new progression of the tumor, multifocal at the margins of the prior resection site with extension into the wall of the lateral ventricle and along with corpus callosum. Neurosurgery was consulted for progression of the tumor. PAST MEDICAL HISTORY: Grade 4 glioblastoma of the right parietal lobe, hypertension, hyperlipidemia, history of basal cell. PAST SURGICAL HISTORY: Right parietal craniotomy with tumor resection, left thumb surgery, cataract surgery, right hip replacement. ALLERGIES: HE IS ALLERGIC TO CODEINE. REVIEW OF SYSTEMS: Per HPI. SOCIAL HISTORY: Lives at home. He does not smoke, drink, or use any drugs. PHYSICAL EXAMINATION: VITAL SIGNS: Stable. He is afebrile. CONSTITUTIONAL: Awake, alert, no acute distress. HEENT: Head is normocephalic and atraumatic. NECK: Supple, nontender. Free active range of motion. CARDIOVASCULAR: Regular rate and rhythm. LUNGS: Symmetric chest expansion. No evidence of dyspnea. MUSCULOSKELETAL: Free active range of motion of all extremities. No focal motor weakness. NEUROLOGIC: He is oriented x4 with no focal neurologic deficits at this time. ASSESSMENT AND PLAN: The patient has recent progression of his prior glioblastoma with new extension into the wall of the lateral ventricle as well as the corpus callosum. Unfortunately, none of these lesions are surgically amenable. We recommend ongoing Oncology and Radiology/Oncology opinions regarding the value of any other palliative treatment options. We will defer any seizure management to the Neurology team or other medical issues to the medicine team. Please reach out to Neurosurgery for additional questions or concerns. Job ID: [id number] [facility]
[2020-02-03] MEDS: Dexamethasone 4 mg/ml Vial SLOW IVP SCH ×3 (00:56→11:18)
[2020-02-03] MEDS: levETIRAcetam In NaCl (Iso-Os) 1,000 MG in Premix Bag 1 BAG IVPB SCH ×2 (00:56→13:18)
[2020-02-03 05:02] LABS: #Lymphocytes 0.7 thou/uL (1.20-3.40); #Monocytes 0.4 thou/uL (0.11-0.59); #Neutrophils 12.6 thou/uL (1.40-6.50); %Eosinophils 0.2 % (0.0-10.0); %Lymphocytes 5.3 % (21.0-51.0); %Monocytes 2.7 % (0.0-10.0); %Neutrophils 91.8 % (42.0-75.0); Hemoglobin 13.8 g/dL (14.0-18.0); Mean Corpuscular HGB CONC 35.2 g/dL (32.0-36.0); Mean Corpuscular Hemoglobin 31.3 pg (27.0-31.0); Mean Corpuscular Volume 88.9 fL (78.0-98.0); Mean Platelet Volume 8.1 fL (7.4-10.4); Platelet Count 197 thou/uL (130-400); RBC Distribution Width 12.6 % (11.5-14.5); White Blood Cell (WBC) Count 13.8 thou/uL (4.8-10.8)
[2020-02-03 05:26] LABS: Anion Gap 15 mmol/L (10-20); BUN (Urea Nitrogen) 16 mg/dL (8.4-25.7); Calc. Creatinine Clearance 125 mL/min (70-130); Calcium 8.8 mg/dL (7.8-10.44); Carbon Dioxide 23 mmol/L (23-31); Chloride 110 mmol/L (98-107); Estimated GFR-MDRD Greater than 90; Glucose 147 mg/dL (80-115); Potassium 3.5 mmol/L (3.5-5.1); Sodium 144 mmol/L (136-145)
[2020-02-03] MEDS: Sodium Chloride 0.9% 1,000 ML IV SCH ×2 (05:46→19:29)
[2020-02-03] MEDS: Famotidine 20 MG TAB PO SCH ×2 (08:19→21:01)
[2020-02-03] MEDS: Carvedilol 3.125 MG TAB PO SCH ×2 (08:20→16:36)
[2020-02-03] MEDS: Amlodipine 5 MG TAB PO SCH ×2 (08:20→21:02)
--- NOTE | 2020-02-03 10:46 | PDOC.HOSPP ---
- Subjective Encounter Date: 02/03/20 Encounter Time: 08:00 Subjective: No overnight events. Patient denies any new numbness, weakness. She denies any changes in vision, dizziness. Denies any chest pain, shortness of breath. Patient alert and oriented x4, seizure pads in place. Patient does report feeling very tired after his seizures on initial presentation. Chart and medications reviewed. - Objective Vital Signs & Weight: Vital Signs (12 hours) Temp Pulse Resp BP BP BP Pulse Ox 02/03/20 08:20 71 135/79 02/03/20 08:00 97.4 F L 71 18 135/79 94 L 02/03/20 04:05 97.7 F 88 18 139/74 93 L 02/03/20 00:00 98.0 F 77 16 114/61 93 L Weight Weight 204 lb 11.2 oz I&O: 02/02/20 02/03/20 02/04/20 06:59 06:59 06:59 Intake Total 1180 Output Total 2726 Balance -1546 Result Diagrams: 02/03/20 04:40 02/03/20 04:40 Additional Labs: Accuchecks 02/01/20 11:31 POC Glucose 167 H Hospitalist ROS - Review of Systems Constitutional: denies: fever, chills, sweats Eyes: denies: vision change ENT: denies: nose congestion, throat pain Respiratory: denies: cough, shortness of breath Cardiovascular: denies: chest pain, palpitations, light headedness Gastrointestinal: denies: nausea, vomiting, abdominal pain, diarrhea Genitourinary: denies: dysuria Skin: denies: rash, lesions Neurological: denies: weakness, numbness, change in speech - Medication Medications: Active Medications Generic Name Dose Route Start Last Admin Trade Name Freq PRN Reason Stop Dose Admin Acetaminophen 650 mg 02/01/20 10:26 02/01/20 21:07 Acetaminophen 325 Mg Tab PO 650 mg Q4H PRN Administration Headache/Fever/Mild Pain (1-3) Amlodipine Besylate 5 mg 02/02/20 09:00 02/03/20 08:20 Amlodipine 5 Mg Tab PO 5 mg BID AG Administration Atorvastatin Calcium 40 mg 02/01/20 21:00 02/02/20 20:25 Atorvastatin Calcium 40 Mg Tab PO 40 mg HS AG Administration Carvedilol 3.125 mg 02/01/20 17:00 02/03/20 08:20 Carvedilol 3.125 Mg Tab PO 3.125 mg BID-WM AG Administration Dexamethasone 4 mg 02/01/20 12:00 02/03/20 05:46 Dexamethasone 4 Mg/Ml Vial SLOW IVP 4 mg Q6HR AG Administration Famotidine 20 mg 02/01/20 09:00 02/03/20 08:19 Famotidine 20 Mg Tab PO 20 mg BID AG Administration Sodium Chloride 1,000 mls @ 75 mls/hr 02/01/20 12:15 02/03/20 05:46 Normal Saline 0.9% IV 1,000 mls .[id number] AG Administration Levetiracetam 1,000 mg/ Device 100 mls @ 200 mls/hr 02/02/20 01:00 COST CONTROL SUPERVISOR 02/03/20 00:56 IVPB 100 mls 0100,1300 AG Administration Lorazepam 2 mg 02/01/20 11:05 02/01/20 16:59 Lorazepam 2 Mg/Ml Vial SLOW IVP 2 mg Q4H PRN Administration Seizures - Exam General Appearance: NAD, awake alert Eye: PERRL, anicteric sclera ENT: normocephalic atraumatic, no oropharyngeal lesions, moist mucosa Neck: supple, symmetric, no JVD, no thyromegaly, no lymphadenopathy, no carotid bruit Heart: RRR, no murmur, no gallops, no rubs, normal peripheral pulses Respiratory: CTAB, no wheezes, no rales, no ronchi, normal chest expansion, no tachypnea, normal percussion Gastrointestinal: soft, non-tender, non-distended, normal bowel sounds, no palpable masses, no hepatomegaly, no splenomegaly, no bruit Extremities: no cyanosis, no clubbing, no edema Skin: normal turgor, no lesions, no rashes Neurological: cranial nerve grossly intact, normal sensation to touch, no weakness, no focal deficits, no new deficit Musculoskeletal: normal tone, normal strength, no muscle wasting Psychiatric: normal affect, normal behavior, A&O x 3 Hosp A/P - Plan # Seizure Continue keppra IVPB Neuro recs. appreciated. EEG showed moderate generalized non-specific cerebral dysfunction Neurosurgery- no surgical options at this time Oncology- recs appreciated Continue Dexamethasone. Ativan prn seizures. Seizure precautions, neuro checks. #Glioblastoma MRI report worsening malignancy of right parietal lobe with extension and vasogenic edema. Continue dexamethasone. Neurosurgery- no surgical options at this time Oncology consultation pending. #Leukocytosis WBC elevated to 13.8, up from 11.7 on 02/01. Likely reactive/from steroid use. Pt afebrile, no current concern for infection. Continue to trend #HTN Continue home dose carvedilol. Restart home dose norvasc. #HLD Continue home dose Atorvastatin. Discussed case with Dr. Kaplan.
--- NOTE | 2020-02-03 12:36 | PDOC.NEUPN ---
- Subjective Encounter Date: 02/03/20 Subjective: Mr. Villatoro feels much better today. He is alert and oriented x4 and following commands appropriately. Per at bedside, he is back to his baseline. He is tolerating Keppra well without any side effects. - Objective Vital Signs & Weight: Vital Signs (12 hours) Temp Pulse Pulse Pulse Resp BP BP 02/03/20 11:53 97.7 F 70 16 02/03/20 10:18 82 77 145/78 H 02/03/20 08:20 71 135/79 02/03/20 08:00 97.4 F L 71 18 02/03/20 04:05 97.7 F 88 18 BP BP BP Pulse Ox Pulse Ox Pulse Ox 02/03/20 11:53 122/69 94 L 02/03/20 10:18 151/79 H 95 94 L 02/03/20 08:20 02/03/20 08:00 135/79 94 L 02/03/20 04:05 139/74 93 L Weight Weight 204 lb 11.2 oz I&O: 02/02/20 02/03/20 02/04/20 06:59 06:59 06:59 Intake Total 1180 Output Total 2726 Balance -1546 Result Diagrams: 02/03/20 04:40 02/03/20 04:40 Additional Labs: Accuchecks 02/01/20 11:31 POC Glucose 167 H Radiology Reviewed by me: Yes EKG Reviewed by me: Yes ROS - Review of Systems Constitutional: denies: fever, chills, sweats, weakness, malaise, other Eyes: denies: pain, vision change, conjunctivae inflammation, eyelid inflammation, redness, other ENT: denies: ear pain, ear discharge, nose pain, nose discharge, nose congesti on, mouth pain, mouth swelling, throat pain, throat swelling, other Respiratory: denies: cough, dry, shortness of breath, hemoptysis, SOB with excertion, pleuritic pain, sputum, wheezing, other Gastrointestinal: denies: nausea, vomiting, abdominal pain, diarrhea, constipation, melena, hematochezia, other Genitourinary: denies: dysuria, frequency, incontinence, hematuria, retention, other Musculoskeletal: denies: neck pain, shoulder pain, arm pain, back pain, hand pain, leg pain, foot pain, other Neurological: reports: weakness, numbness, confusion, seizures All Systems: All other systems reviewed; all pertinent +/- noted in HPI/Subj - Medication Medications: Active Medications Generic Name Dose Route Start Last Admin Trade Name Freq PRN Reason Stop Dose Admin Acetaminophen 650 mg 02/01/20 10:26 02/01/20 21:07 Acetaminophen 325 Mg Tab PO 650 mg Q4H PRN Administration Headache/Fever/Mild Pain (1-3) Amlodipine Besylate 5 mg 02/02/20 09:00 02/03/20 08:20 Amlodipine 5 Mg Tab PO 5 mg BID AG Administration Atorvastatin Calcium 40 mg 02/01/20 21:00 02/02/20 20:25 Atorvastatin Calcium 40 Mg Tab PO 40 mg HS AG Administration Carvedilol 3.125 mg 02/01/20 17:00 02/03/20 08:20 Carvedilol 3.125 Mg Tab PO 3.125 mg BID-WM AG Administration Dexamethasone 4 mg 02/01/20 12:00 02/03/20 11:18 Dexamethasone 4 Mg/Ml Vial SLOW IVP 4 mg Q6HR AG Administration Famotidine 20 mg 02/01/20 09:00 02/03/20 08:19 Famotidine 20 Mg Tab PO 20 mg BID AG Administration Sodium Chloride 1,000 mls @ 75 mls/hr 02/01/20 12:15 02/03/20 05:46 Normal Saline 0.9% IV 1,000 mls .[id number] AG Administration Levetiracetam 1,000 mg/ Device 100 mls @ 200 mls/hr 02/02/20 01:00 PAINT PREPARER 02/03/20 00:56 IVPB 100 mls 0100,1300 AG Administration Lorazepam 2 mg 02/01/20 11:05 02/01/20 16:59 Lorazepam 2 Mg/Ml Vial SLOW IVP 2 mg Q4H PRN Administration Seizures - Exam General Appearance: awake alert Eye: PERRL ENT: normocephalic atraumatic Neck: supple Respiratory: CTAB Cardiovascular: RRR Gastrointestinal: soft Extremities: no cyanosis Skin: normal turgor Neurological: CN's grossly intact, no new deficit Musculoskeletal: normal tone, no muscle wasting PSYCH: normal affect, normal behavior, A&O x 3, oriented to person, oriented to place, oriented to time Results - Labs Result Diagrams: 02/03/20 04:40 02/03/20 04:40 Lab results: WBC 13.8 thou/uL (4.8-10.8) H 02/03/20 04:40 Hgb 13.8 g/dL (14.0-18.0) L 02/03/20 04:40 Hct 39.2 % (42.0-52.0) L 02/03/20 04:40 MCV 88.9 fL (78.0-98.0) 02/03/20 04:40 Plt Count 197 thou/uL (130-400) 02/03/20 04:40 Neutrophils % 91.8 % (42.0-75.0) H 02/03/20 04:40 Sodium 144 mmol/L (136-145) 02/03/20 04:40 Potassium 3.5 mmol/L (3.5-5.1) 02/03/20 04:40 Chloride 110 mmol/L (98-107) H 02/03/20 04:40 Carbon Dioxide 23 mmol/L (23-31) 02/03/20 04:40 BUN 16 mg/dL (8.4-25.7) 02/03/20 04:40 Creatinine 0.73 mg/dL (0.7-1.3) 02/03/20 04:40 Glucose 147 mg/dL (80-115) H 02/03/20 04:40 Calcium 8.8 mg/dL (7.8-10.44) 02/03/20 04:40 - Radiology Interpretation MRI - head Status: image reviewed by me, report reviewed by me Additional Comment: MRI head showed interval worsening in the size of the tumor with vasogenic edema. PN A/P (1) Seizure Code(s): R56.9 - UNSPECIFIED CONVULSIONS Status: Acute (2) Glioma of brain Status: Chronic (3) Hyperlipidemia Code(s): E78.5 - HYPERLIPIDEMIA, UNSPECIFIED Status: Chronic (4) Hypertension Code(s): I10 - ESSENTIAL (PRIMARY) HYPERTENSION Status: Chronic Qualifiers: Hypertension type: essential hypertension Qualified Code(s): I10 - Essential (primary) hypertension - Plan Daily Plan: plan discussed w/ family, PT/OT, speech therapy, DVT proph w/SCDs Mr. Villatoro is a 69-year-old male with medical history significant for glioblastoma s/p resection and chemotherapy presented with new onset seizure- like activity. The patient had twitching of the left upper extremity associated with confusion consistent with focal motor seizures. He was loaded with Keppra and given Ativan which aborted the seizure activity. He also got a load of Dilantin which resulted in allergic reaction so Dilantin was discontinued. He is much better today and is almost back to his baseline. No further seizures since admission after the initiation of Keppra. He is tolerating Keppra well without any side effects. EEG performed yesterday which was negative for seizure activity. Continue Keppra 1000 mg p.o. twice daily Neurochecks every 4 hours. Observe seizure precautions. Ativan 2 mg IV for seizure greater than 2 minutes. MRI of the brain reviewed which shows interval worsening in the size of the tumor with vasogenic edema. Oncology on board. Neurosurgery did not feel the need of surgical intervention due to the location and size of the tumor. Continue Decadron for vasogenic edema Strict control of blood pressure and blood glucose. Continue home medications. Continue medical management per primary team and oncology. Palliative care consult regarding discharge planning Patient should follow-up with Dr. Sullivan as outpatient for further management of seizures. Plan discussed in detail with the patient, patient's and also during MDR rounds
--- NOTE | 2020-02-03 13:13 | PDOC.PALCO ---
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 He had a previous right parietal craniotomy with gross tumor resection in May 2018, radiation therapy with Temodar and Optune in January of 2019. His last MRI was in July which revealed post surgical changes and small enhancement at site measuring 2 cm in July 2019. Monday he had an alteration in mental status and fall and left arm movement suspicious for seizure activity, presented to [facility] emergency room for evaluation. MRI of the brain showed new irregular mass, with worsening vasogenic edema. Antiseizure medications and steroids initiated. Admitted for further medical management. Lives independently at home with his . - Pertinent PMH Grade 4 glioblastoma of right parietal lobe, hypertension, hyperlipidemia, basal cell carcinoma - Social History Smoking Status: Never smoker Smoking: no tobacco exposure Alcohol Use: occasional Drug Use History: none Living Situation: - Medications MAR Reviewed: Yes - Allergies Allergies/Adverse Reactions: Allergies Allergy/AdvReac Type Severity Reaction Status Date / Time codeine Allergy Emesis Verified 06/23/19 02:29 - Subjective Awake, states he "feels better" no slurred speech. Repetitive thought pattern at times. Continues with Keppra and Steroids IV, no reoccurrence of seizure activity. - ROS Constitutional: alert Eyes: other (Denies visual changes) ENT: other (States palate has improved since "last seizure") Respiratory: other (Denies shortness of breath, cough) Cardiology: other (denies palpitations, chest pain) Neurological: other (denies any seizure activity, dizziness, headache) - Objective Vital Signs: Vital Signs - Most Recent Temp Pulse Resp BP Pulse Ox 97.7 F 70 16 122/69 94 L 02/03/20 11:53 02/03/20 11:53 02/03/20 11:53 02/03/20 11:53 02/03/20 11:53 Palliative Performance Scale: 70 - Advance Directives Medical Power of Senior Digital Designer: Patient - Physical Exam Constitutional: NAD HEENT: moist MMs, PERRLA, sclera anicteric Respiratory: clear to auscultation bilateral, no rales, no rhonchi, no wheezing, unlabored breathing Cardiovascular: no significant murmur, RRR Gastrointestinal: continent, soft, non-tender, no distention, positive bowel sounds Genitourinary: continent Musculoskeletal: no cyanosis, no clubbing, no edema, pulses present Neurology: moves all 4 limbs, normal sensation, normal speech Skin: cap refill <2 seconds, no lesions, no rash Psychiatric: A&O x 3, normal affect, normal mood - Problem List (1) Palliative care encounter Code(s): Z51.5 - ENCOUNTER FOR PALLIATIVE CARE Current Visit: Yes Status: Acute (2) Seizure Code(s): R56.9 - UNSPECIFIED CONVULSIONS Current Visit: Yes Status: Acute (3) Glioma of brain Current Visit: No Status: Chronic - Plan/Recommendations Plan: Life review with patient. 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 Three children, two boys one daughter. Son in [facility], Son in [place], and daughter in [place]. His voiced hope is to travel after "Covid" is over and tour [employer]. States they have MPOA and Directive to Physician completed. What is in our system is not fully documented, will request another copy from his . Mr Villatoro is awaiting input from Dr Kevin and Dr Jarrell to determine his next course of action. Reports no seizure activity since initial presentation to hospital/post introduction of Keppra and steroid, Confirmed current full resuscitation status. *During conversation patient would revisit what he had previously relayed, and did not have recall of prior statement. Palliative care will follow up with Directive to Physician/MPOA requesting another copy. [employer] Goal of care after Dr Kevin and Dr Stacy assess/visit with Mr Villatoro. [75] minutes spent on this encounter with >50% of the time in counseling and coordination of care. Thank you for this very appropriate consult.
--- NOTE | 2020-02-03 14:13 | PDOC.MOPN ---
Interval History: alert today, some delay in recall. - Vital Signs Vital Signs: Vital Signs (12 hours) Temp Pulse Pulse Pulse Resp BP BP 02/03/20 11:53 97.7 F 70 16 02/03/20 10:18 82 77 145/78 H 02/03/20 08:20 71 135/79 02/03/20 08:00 97.4 F L 71 18 02/03/20 04:05 97.7 F 88 18 BP BP BP Pulse Ox Pulse Ox Pulse Ox 02/03/20 11:53 122/69 94 L 02/03/20 10:18 151/79 H 95 94 L 02/03/20 08:20 02/03/20 08:00 135/79 94 L 02/03/20 04:05 139/74 93 L Weight Weight 204 lb 11.2 oz - Physical Exam General: Alert Lungs: Clear to auscultation Cardiovascular: Regular rate Abdomen: Normal bowel sounds Neurological: Normal speech - Labs Result Diagrams: 02/03/20 04:40 02/03/20 04:40 Lab results: Laboratory Results - last 24 hr 02/03/20 04:40: TSH 3rd Generation 0.8837 02/03/20 04:40: WBC 13.8 H, RBC 4.40 L, Hgb 13.8 L, Hct 39.2 L, MCV 88.9, MCH 31.3 H, MCHC 35.2, RDW 12.6, Plt Count 197, MPV 8.1, Neutrophils % 91.8 H, Lymphocytes % 5.3 L, Monocytes % 2.7, Eosinophils % 0.2, Basophils % 0.0, Neutrophils # 12.6 H, Lymphocytes # 0.7 L, Monocytes # 0.4, Eosinophils # 0.0, Basophils # 0.0 02/03/20 04:40: Sodium 144, Potassium 3.5, Chloride 110 H, Carbon Dioxide 23, Anion Gap 15, BUN 16, Creatinine 0.73, Estimated GFR (MDRD) Greater than 90, Glucose 147 H, Calcium 8.8 02/01/20 11:31: POC Glucose 167 H Status: lab reviewed by me A/P - Problem (1) Seizure Current Visit: Yes Code(s): R56.9 - UNSPECIFIED CONVULSIONS Status: Acute (2) Glioma of brain Current Visit: No Status: Chronic - Plan Plan: 1. continue Decadron, change to po 2. Discussed with Dr. Kevin, may be able to get IV chemo as outpatient 3. DC home when ok with Neuro, Hospitalist 4. Follow-up Dr. Kevin this week to discuss options.
[2020-02-03] MEDS: Dexamethasone 4 MG TAB PO SCH ×2 (16:36→21:01)
[2020-02-03] MEDS: Acetaminophen 325 MG TAB PO PRN (17:54)
[2020-02-03] MEDS: Atorvastatin Calcium 40 MG TAB PO SCH (21:01)
[2020-02-04] MEDS: levETIRAcetam In NaCl (Iso-Os) 1,000 MG in Premix Bag 1 BAG IVPB SCH ×2 (01:08→13:34)
[2020-02-04 04:53] LABS: #Lymphocytes 0.7 thou/uL (1.20-3.40); #Monocytes 0.3 thou/uL (0.11-0.59); #Neutrophils 10.1 thou/uL (1.40-6.50); %Basophils 0.1 % (0.0-1.0); %Eosinophils 0.3 % (0.0-10.0); %Lymphocytes 6.6 % (21.0-51.0); %Monocytes 2.8 % (0.0-10.0); %Neutrophils 90.2 % (42.0-75.0); Hemoglobin 13.6 g/dL (14.0-18.0); Mean Corpuscular HGB CONC 33.3 g/dL (32.0-36.0); Mean Corpuscular Hemoglobin 29.5 pg (27.0-31.0); Mean Corpuscular Volume 88.6 fL (78.0-98.0); Platelet Count 202 thou/uL (130-400); RBC Distribution Width 12.6 % (11.5-14.5); Red Blood Cell (RBC) Count 4.61 mill/uL (4.70-6.10); White Blood Cell (WBC) Count 11.2 thou/uL (4.8-10.8)
[2020-02-04 05:03] LABS: Anion Gap 14 mmol/L (10-20); BUN (Urea Nitrogen) 13 mg/dL (8.4-25.7); Calc. Creatinine Clearance 135 mL/min (70-130); Calcium 8.8 mg/dL (7.8-10.44); Carbon Dioxide 25 mmol/L (23-31); Chloride 108 mmol/L (98-107); Estimated GFR-MDRD Greater than 90; Glucose 145 mg/dL (80-115); Potassium 3.5 mmol/L (3.5-5.1); Sodium 143 mmol/L (136-145)
--- NOTE | 2020-02-04 08:08 | PDOC.HOSPP ---
- Subjective Encounter Date: 02/04/20 Encounter Time: 10:00 Subjective: Patient was a bit confused on first awakening this AM, but oriented now. Up and ambulating with walker with PT. No further seizures since admit. Tolerating Keppra well. Has onc appt tomorrow AM. - Objective Vital Signs & Weight: Vital Signs (12 hours) Temp Pulse Resp BP BP Pulse Ox 02/04/20 07:20 97.8 F 61 16 120/66 96 02/04/20 03:25 98.1 F 64 20 135/86 94 L 02/03/20 23:25 97.9 F 70 20 137/81 94 L 02/03/20 21:02 71 140/85 Weight Weight 204 lb 11.2 oz I&O: 02/03/20 02/04/20 02/05/20 06:59 06:59 06:59 Intake Total 1180 240 Output Total 2726 1600 Balance -2032 -3563 Result Diagrams: 02/04/20 04:26 02/04/20 04:26 Hospitalist ROS - Review of Systems Constitutional: denies: fever, chills Respiratory: denies: cough, shortness of breath Cardiovascular: denies: chest pain, palpitations Gastrointestinal: denies: nausea, vomiting, abdominal pain Neurological: denies: seizures - Medication Medications: Active Medications Generic Name Dose Route Start Last Admin Trade Name Freq PRN Reason Stop Dose Admin Acetaminophen 650 mg 02/01/20 10:26 02/03/20 17:54 Acetaminophen 325 Mg Tab PO 650 mg Q4H PRN Administration Headache/Fever/Mild Pain (1-3) Amlodipine Besylate 5 mg 02/02/20 09:00 02/03/20 21:02 Amlodipine 5 Mg Tab PO 5 mg BID AG Administration Atorvastatin Calcium 40 mg 02/01/20 21:00 02/03/20 21:01 Atorvastatin Calcium 40 Mg Tab PO 40 mg HS AG Administration Carvedilol 3.125 mg 02/01/20 17:00 02/03/20 16:36 Carvedilol 3.125 Mg Tab PO 3.125 mg BID-WM AG Administration Dexamethasone 4 mg 02/03/20 17:00 02/03/20 21:01 Dexamethasone 4 Mg Tab PO 4 mg QID AG Administration Famotidine 20 mg 02/01/20 09:00 02/03/20 21:01 Famotidine 20 Mg Tab PO 20 mg BID AG Administration Sodium Chloride 1,000 mls @ 75 mls/hr 02/01/20 12:15 02/03/20 19:29 Normal Saline 0.9% IV 1,000 mls .[id number] AG Administration Levetiracetam 1,000 mg/ Device 100 mls @ 200 mls/hr 02/02/20 01:00 DRAFTER CIVIL 02/04/20 01:08 IVPB 100 mls 0100,1300 AG Administration Lorazepam 2 mg 02/01/20 11:05 02/01/20 16:59 Lorazepam 2 Mg/Ml Vial SLOW IVP 2 mg Q4H PRN Administration Seizures Senna/Docusate Sodium 2 tab 02/01/20 10:29 02/03/20 21:02 Senokot S 8.6-50 Mg Tab PO 2 tab BID PRN Administration Constipation Sodium Chloride 10 ml 02/03/20 21:00 02/03/20 21:04 Flush - Normal Saline 10 Ml Syringe IVF Not Given Q12HR AG - Exam General Appearance: NAD, awake alert ENT: moist mucosa Heart: RRR, no murmur, no gallops, no rubs Respiratory: CTAB, no wheezes, no rales, no ronchi Gastrointestinal: soft, non-tender, non-distended, normal bowel sounds Psychiatric: normal affect, normal behavior, A&O x 3 Hosp A/P - Plan # Seizure Continue keppra now oral Neuro recs. appreciated. EEG showed moderate generalized non-specific cerebral dysfunction- no seizures Neurosurgery- no surgical options at this time Oncology- recs appreciated, needs outpatient f/u this week about chemo Continue Dexamethasone- continue until see Onc at appt tomorrow Ativan prn seizures. Seizure precautions, neuro checks. #Glioblastoma MRI report worsening malignancy of right parietal lobe with extension and vasogenic edema. Continue dexamethasone. Neurosurgery- no surgical options at this time Oncology consultated and considering IV chemotherapy. #Leukocytosis WBC elevated to 13.8, up from 11.7 on 02/01. Likely reactive/from steroid use. Pt afebrile, no current concern for infection. Continue to trend #HTN Continue home dose carvedilol. Restart home dose norvasc. #HLD Continue home dose Atorvastatin. Spoke with Onc and Neuro. Ok to d/c home today and f/u Onc outpatient appointment tomorrow morning.
[2020-02-04] MEDS: Amlodipine 5 MG TAB PO SCH (09:15)
[2020-02-04] MEDS: Carvedilol 3.125 MG TAB PO SCH (09:15)
[2020-02-04] MEDS: Famotidine 20 MG TAB PO SCH (09:15)
[2020-02-04] MEDS: Dexamethasone 4 MG TAB PO SCH ×2 (09:16→13:45)
[2020-02-04] MEDS: Sodium Chloride 0.9% 1,000 ML IV SCH (09:26)
[2020-02-04 11:22] VITALS: TEMP 98.4
[2020-02-04 12:01] VITALS: BP 145/85
--- NOTE | 2020-02-04 12:04 | PDOC.NEUPN ---
- Subjective Encounter Date: 02/04/20 Subjective: Mr. Villatoro feels much better today. No further seizures since initiation of Keppra. He is tolerating Keppra well without any side effects. - Objective Vital Signs & Weight: Vital Signs (12 hours) Temp Pulse Pulse Pulse Resp BP BP 02/04/20 11:21 98.4 F 68 16 02/04/20 10:14 64 64 145/85 H 141/79 H 02/04/20 09:15 60 02/04/20 07:20 97.8 F 61 16 02/04/20 03:25 98.1 F 64 20 BP Pulse Ox 02/04/20 11:21 131/74 95 02/04/20 10:14 02/04/20 09:15 02/04/20 07:20 120/66 96 02/04/20 03:25 135/86 94 L Weight Weight 204 lb 11.2 oz I&O: 02/03/20 02/04/20 02/05/20 06:59 06:59 06:59 Intake Total 1180 240 Output Total 2726 1600 Balance -1546 -1360 Result Diagrams: 02/04/20 04:26 02/04/20 04:26 Radiology Reviewed by me: Yes EKG Reviewed by me: Yes ROS - Review of Systems Constitutional: denies: fever, chills, sweats, weakness, malaise, other Eyes: denies: pain, vision change, conjunctivae inflammation, eyelid inflammation, redness, other ENT: denies: ear pain, ear discharge, nose pain, nose discharge, nose congestion, mouth pain, mouth swelling, throat pain, throat swelling, other Respiratory: denies: cough, dry, shortness of breath, hemoptysis, SOB with excertion, pleuritic pain, sputum, wheezing, other Gastrointestinal: denies: nausea, vomiting, abdominal pain, diarrhea, constipat ion, melena, hematochezia, other Genitourinary: denies: dysuria, frequency, incontinence, hematuria, retention, other Musculoskeletal: denies: neck pain, shoulder pain, arm pain, back pain, hand pain, leg pain, foot pain, other Skin: denies: rash, lesions, srini, bruising, other Neurological: reports: numbness, incoordination, change in speech, confusion. denies: weakness, seizures, other All Systems: All other systems reviewed; all pertinent +/- noted in HPI/Subj - Medication Medications: Active Medications Generic Name Dose Route Start Last Admin Trade Name Freq PRN Reason Stop Dose Admin Acetaminophen 650 mg 02/01/20 10:26 02/03/20 17:54 Acetaminophen 325 Mg Tab PO 650 mg Q4H PRN Administration Headache/Fever/Mild Pain (1-3) Amlodipine Besylate 5 mg 02/02/20 09:00 02/04/20 09:15 Amlodipine 5 Mg Tab PO 5 mg BID AG Administration Atorvastatin Calcium 40 mg 02/01/20 21:00 02/03/20 21:01 Atorvastatin Calcium 40 Mg Tab PO 40 mg HS AG Administration Carvedilol 3.125 mg 02/01/20 17:00 02/04/20 09:15 Carvedilol 3.125 Mg Tab PO 3.125 mg BID-WM AG Administration Dexamethasone 4 mg 02/03/20 17:00 02/04/20 09:16 Dexamethasone 4 Mg Tab PO 4 mg QID AG Administration Famotidine 20 mg 02/01/20 09:00 02/04/20 09:15 Famotidine 20 Mg Tab PO 20 mg BID AG Administration Sodium Chloride 1,000 mls @ 75 mls/hr 02/01/20 12:15 02/04/20 09:26 Normal Saline 0.9% IV 1,000 mls .[id number] AG Administration Levetiracetam 1,000 mg/ Device 100 mls @ 200 mls/hr 02/02/20 01:00 PRODUCT COMMUNICATIONS MANAGER 02/04/20 01:08 IVPB 100 mls 0100,1300 AG Administration Lorazepam 2 mg 02/01/20 11:05 02/01/20 16:59 Lorazepam 2 Mg/Ml Vial SLOW IVP 2 mg Q4H PRN Administration Seizures Senna/Docusate Sodium 2 tab 02/01/20 10:29 02/03/20 21:02 Senokot S 8.6-50 Mg Tab PO 2 tab BID PRN Administration Constipation Sodium Chloride 10 ml 02/03/20 21:00 02/04/20 09:16 Flush - Normal Saline 10 Ml Syringe IVF Not Given Q12HR AG Results - Labs Result Diagrams: 02/04/20 04:26 02/04/20 04:26 Lab results: WBC 11.2 thou/uL (4.8-10.8) H 02/04/20 04:26 Hgb 13.6 g/dL (14.0-18.0) L 02/04/20 04:26 Hct 40.9 % (42.0-52.0) L 02/04/20 04:26 MCV 88.6 fL (78.0-98.0) 02/04/20 04:26 Plt Count 202 thou/uL (130-400) 02/04/20 04:26 Neutrophils % 90.2 % (42.0-75.0) H 02/04/20 04:26 Sodium 143 mmol/L (136-145) 02/04/20 04:26 Potassium 3.5 mmol/L (3.5-5.1) 02/04/20 04:26 Chloride 108 mmol/L (98-107) H 02/04/20 04:26 Carbon Dioxide 25 mmol/L (23-31) 02/04/20 04:26 BUN 13 mg/dL (8.4-25.7) 02/04/20 04:26 Creatinine 0.68 mg/dL (0.7-1.3) L 02/04/20 04:26 Glucose 145 mg/dL (80-115) H 02/04/20 04:26 Calcium 8.8 mg/dL (7.8-10.44) 02/04/20 04:26 - Radiology Interpretation MRI - head Additional Comment: MRI of the brain showed worsening of the tumor with vasogenic edema PN A/P (1) Seizure Code(s): R56.9 - UNSPECIFIED CONVULSIONS Status: Acute (2) Glioma of brain Status: Chronic (3) Hyperlipidemia Code(s): E78.5 - HYPERLIPIDEMIA, UNSPECIFIED Status: Chronic (4) Hypertension Code(s): I10 - ESSENTIAL (PRIMARY) HYPERTENSION Status: Chronic Qualifiers: Hypertension type: essential hypertension Qualified Code(s): I10 - Essential (primary) hypertension - Plan Daily Plan: plan discussed w/ family, PT/OT, speech therapy, out of bed/ambulate Mr. Villatoro is a 69-year-old male with medical history significant for glioblastoma s/p resection and chemotherapy presented with new onset seizure- like activity. The patient had twitching of the left upper extremity associated with confusion consistent with focal motor seizures. He was loaded with Keppra and given Ativan which aborted the seizure activity. He also got a load of D ilantin which resulted in allergic reaction so Dilantin was discontinued. He is much better today and is almost back to his baseline. No further seizures since admission after the initiation of Keppra. He is tolerating Keppra well without any side effects. Patient stable from neurological perspective. No acute complaints since the last 24 hours. EEG performed yesterday which was negative for seizure activity. Continue Keppra 1000 mg p.o. twice daily. He should be discharged on Keppra 1000 mg p.o. twice daily. Medication compliance encouraged. Observe seizure precautions. Ativan 2 mg IV for seizure greater than 2 minutes. MRI of the brain reviewed which showed interval worsening in the size of the tumor with vasogenic edema. Oncology on board and appointment with oncology is also set up as outpatient for further management. Neurosurgery did not feel the need of surgical intervention due to the location and size of the tumor. Continue Decadron for vasogenic edema Strict control of blood pressure and blood glucose. Continue home medications. Continue medical management per primary team and oncology. He follow-up with Dr. Sullivan as outpatient for further management of seizures . Case management on board regarding discharge planning Plan discussed in detail with the patient, patient's and also with the primary provider Dr. Plascencia
[2020-02-04] MEDS ORDERED: levETIRAcetam 500 MG TAB PO SCH (13:00)
--- NOTE | 2020-02-04 14:17 | PDOC.FMACP ---
Advance Care Planning - Problem (1) Palliative care encounter Status: Acute Code(s): Z51.5 - ENCOUNTER FOR PALLIATIVE CARE (2) Seizure Status: Acute Code(s): R56.9 - UNSPECIFIED CONVULSIONS (3) Glioma of brain Status: Chronic - Note Participants: patient, surrogate decision-maker, palliative care Summary: Palliative care revisited Advanced Care Planning. The diagnosis, prognosis and goals of care were discussed. Appropriate forms and documentation to accomplish the goals of care were discussed. All questions were answered. Requested for copy of directives that the patient has completed as well as MPOA for his medical record. Hopeful for therapy outpatient with Dr Kevin and another trip to a [place] with his . Time Spent (mins): 20
--- NOTE | 2020-02-05 04:56 | DIS ---
DATE OF ADMISSION: 02/03/2020 DATE OF DISCHARGE: 02/04/2020 PRIMARY CARE PHYSICIAN: Adilson Gonzaelz. REASON FOR ADMISSION: Change in mental status and possible seizure. DIAGNOSES AT DISCHARGE: 1. Seizures, resolved with Keppra. 2. 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 3. Hypertension. 4. Hyperlipidemia. PROCEDURES: 1. MRI of the brain showing worsening malignancy of the right parietal lobe, with now tumor extension into the right splenium and right body of the corpus callosum with additional satellite lesions within the right parietal lobe adjacent to the lateral margin of the posterior horn of the lateral ventricle as well as within the right occipital lobe just inferior to the right lateral ventricle posterior horn. There is also worsening vasogenic edema in the right parietal lobe and right occipital region. 2. EEG showing moderate generalized nonspecific cerebral dysfunction without any active seizure activity. CONSULTATIONS: 1. Neurology, Dr. Padilla. 2. Neurosurgery, Darleen Pagan for Dr. Sexton. 3. Oncology, Jocelyn Wright for Dr. Kevin. SUMMARY OF HOSPITAL COURSE: This is a 69-year-old male with a known history of glioblastoma, currently on oral chemotherapy. He has had some decline over the last couple of months and then noticed to have some left extremity weakness and twitching, so came into the hospital. He was found to have petite mal seizures that were focal and ongoing in the ER. He was given multiple doses of Ativan. He had a CT of the brain which indicated vasogenic edema, so he had the MRI done as above. The patient was attempted to be loaded with Dilantin, but had a reaction to it, so he was put on Keppra. The reaction he had to Dilantin was a possible rash on his abdomen. He did well on the Keppra during his hospitalization and no further seizures. Dr. Padilla was consulted and did do an EEG which showed moderate generalized nonspecific cerebral dysfunction, but no active seizures. Neurosurgery was consulted and determined there was no neurosurgical intervention for the worsening tumors. Oncology was consulted, they determined to try the patient on IV chemotherapy. He was put on steroids and was transitioned to oral steroids and he was doing better by the time of discharge. He was able to ambulate with physical therapy in the hallway with a rolling walker and his family stated they could care for him at home, they have the rolling walker, they have a hospital bed, and they have a wheelchair for him already, so he is being discharged home. DISCHARGE MANAGEMENT: Discharged home with Home Health. ACTIVITY: As tolerated. DIET: Healthy heart diet. THERAPY: Occupational and physical therapy at home. FOLLOWUP: Follow up with Dr. Kevin tomorrow morning and with current primary care physician as needed and with Dr. Travis as soon as he can get in. DISCHARGE MEDICATIONS: 1. Keppra 1000 mg twice a day, 60 tablets dispensed with two refills to get him through until he can get into Dr. Travis's office. 2. Dexamethasone 4 mg four times a day, eight tablets dispensed. He is to take this until seen by Oncology and they will determine how long he needs to be on it. 3. Amlodipine 5 mg twice a day. 4. Atorvastatin 40 mg at night. 5. Carvedilol 3.125 mg twice a day. Arranging the details of this discharge took 35 minutes. Job ID: [id number]
== END 2020-02-04 14:34 | disposition home health service (06) | DRG 100 ==
LOC: 2SE 09:08 → OBSVTOIN 02-03 15:41
PROVIDERS: ADMIT Internal Medicine; ATTEND Internal Medicine
DX: G40.A09 Absence epileptic syndrome, not intractable, without status epilepticus (principal); G93.6 Cerebral edema; C71.3 Malignant neoplasm of parietal lobe; Z20.828 Contact with and (suspected) exposure to other viral communicable diseases; Z51.5 Encounter for palliative care; Z23 Encounter for immunization; E78.00 Pure hypercholesterolemia, unspecified; Z96.641 Presence of right artificial hip joint; I10 Essential (primary) hypertension; E78.5 Hyperlipidemia, unspecified; G93.89 Other specified disorders of brain; D72.829 Elevated white blood cell count, unspecified; T38.0X5A Adverse effect of glucocorticoids and synthetic analogues, initial encounter; Z88.5 Allergy status to narcotic agent; Z79.899 Other long term (current) drug therapy
CPT/HCPCS: 36415; 36416; 70450; 70553; 80048; 80053; 84146; 84443; 85025; 87635; 90471; 90662; 95712; 95816; 95819; 95957; 96365; 96372; 96375; 96376; A9579; G0008; G0378; J1100; J1200; J1953; J2060; J8540; Q2009; U0003

== ENCOUNTER 2020-02-15 10:22 | Inpatient (IN) | payer MEDICARE, BC ==
[2020-02-15 11:21] LABS: #Basophils 0.1 thou/uL (0.0-0.2); #Lymphocytes 0.2 thou/uL (1.20-3.40); #Monocytes 0.5 thou/uL (0.11-0.59); #Neutrophils 12.7 thou/uL (1.40-6.50); %Basophils 0.8 % (0.0-1.0); %Eosinophils 0.1 % (0.0-10.0); %Lymphocytes 1.6 % (21.0-51.0); %Monocytes 3.7 % (0.0-10.0); %Neutrophils 93.8 % (42.0-75.0); Hemoglobin 13.6 g/dL (14.0-18.0); Mean Corpuscular HGB CONC 34.3 g/dL (32.0-36.0); Mean Corpuscular Hemoglobin 30.8 pg (27.0-31.0); Mean Corpuscular Volume 89.7 fL (78.0-98.0); Mean Platelet Volume 8.1 fL (7.4-10.4); Platelet Count 152 thou/uL (130-400); RBC Distribution Width 12.9 % (11.5-14.5); White Blood Cell (WBC) Count 13.5 thou/uL (4.8-10.8)
[2020-02-15 11:44] LABS: ALT (SGPT) 141 U/L (8-55); AST (SGOT) 90 U/L (5-34); Albumin 3.1 g/dL (3.4-4.8); Alkaline Phosphatase 83 U/L (40-110); Anion Gap 14 mmol/L (10-20); BUN (Urea Nitrogen) 20 mg/dL (8.4-25.7); Bilirubin, Total 0.4 mg/dL (0.2-1.2); Calc. Creatinine Clearance 0 mL/min (70-130); Calcium 8.5 mg/dL (7.8-10.44); Carbon Dioxide 23 mmol/L (23-31); Chloride 101 mmol/L (98-107); Estimated GFR-MDRD Greater than 90; Globulin 3.2 g/dL (2.4-3.5); Glucose 178 mg/dL (80-115); Protein, Total 6.3 g/dL (5.8-8.1); Sodium 134 mmol/L (136-145)
--- NOTE | 2020-02-15 11:47 | RAD ---
Exam: Chest one view HISTORY:Dyspnea. COVID patient. Comparison: None FINDINGS: Cardiac silhouette: Normal Aorta: Unremarkable Pulmonary vessels: Normal Costophrenic angles: Clear LUNGS: Patchy interstitial and alveolar opacities throughout the lung parenchyma. Pneumothorax: None Osseous abnormalities: None IMPRESSION: Multifocal COVID pneumonia.
--- NOTE | 2020-02-15 13:02 | PDOC.HHP ---
Hospitalist HPI - History of Present Illness Covid, hypoxia History of Present Illness: 69 yo m with hx of glioblastoma. Recent admission with partial seizures related to cerebral edema. Started on Keppra and did well. Discharged on oral decadron and the plan was for OP oral chemo. Subsequently, he and his family have all been diagnosed with Covid. Tested positive about 5 days ago. He has modest co ugh and not subjectively SOB, but home pulse ox was 80's. PCP referred him to the ED. Sats here 86% on RA at rest. Denies fever. Hospitalist ROS - Review of Systems Constitutional: denies: fever, chills Respiratory: reports: cough. denies: shortness of breath All other systems reviewed; all pertinent +/- noted in HPI/Subj - Medication Medications: Ambulatory Orders Atorvastatin Calcium 40 mg PO HS 05/28/18 Carvedilol [Coreg] 3.125 mg PO BID-WM #60 tab 06/02/18 Amlodipine [Norvasc] 5 mg PO BID 02/01/20 Dexamethasone [Decadron] 4 mg PO QID #8 tab 02/04/20 levETIRAcetam [Keppra] 1,000 mg PO BID #60 tablet 02/04/20 Hospitalist History - Past Medical History Other Medical History: Glioblastoma, seizure disorder, HLD. - Past Surgical History Other Surgical History: Right hip, left hand, craniotomy. - Family History Family History: reports: no pertinent history - Social History Smoking Status: Never smoker Alcohol: reports: Occassional Drugs: reports: none Living Situation: With Family Other Social History: Full code - Exam General Appearance: NAD, awake alert Heart: RRR, no murmur, no gallops, no rubs, normal peripheral pulses Respiratory: no wheezes, no ronchi, normal chest expansion, no tachypnea, normal percussion, rales (Mild, scattered, bilateral.) Gastrointestinal: soft, non-tender, non-distended, normal bowel sounds, no palpable masses, no hepatomegaly, no splenomegaly, no bruit Extremities: no cyanosis, no clubbing, no edema Skin: normal turgor, no lesions, no rashes Neurological: cranial nerve grossly intact, normal sensation to touch, no weakness, no focal deficits, no new deficit Musculoskeletal: normal tone, normal strength, no muscle wasting Psychiatric: normal affect, normal behavior, A&O x 3 Hospitalist Results - Labs Result Diagrams: 02/15/20 10:42 02/15/20 10:42 Lab results: WBC 13.5 thou/uL (4.8-10.8) H 02/15/20 10:42 Hgb 13.6 g/dL (14.0-18.0) L 02/15/20 10:42 Hct 39.5 % (42.0-52.0) L 02/15/20 10:42 MCV 89.7 fL (78.0-98.0) 02/15/20 10:42 Plt Count 152 thou/uL (130-400) 02/15/20 10:42 Neutrophils % 93.8 % (42.0-75.0) H 02/15/20 10:42 Sodium 134 mmol/L (136-145) L 02/15/20 10:42 Potassium 4.0 mmol/L (3.5-5.1) 02/15/20 10:42 Chloride 101 mmol/L (98-107) 02/15/20 10:42 Carbon Dioxide 23 mmol/L (23-31) 02/15/20 10:42 BUN 20 mg/dL (8.4-25.7) 02/15/20 10:42 Creatinine 0.76 mg/dL (0.7-1.3) 02/15/20 10:42 Glucose 178 mg/dL (80-115) H 02/15/20 10:42 Calcium 8.5 mg/dL (7.8-10.44) 02/15/20 10:42 Total Bilirubin 0.4 mg/dL (0.2-1.2) 02/15/20 10:42 AST 90 U/L (5-34) H 02/15/20 10:42 ALT 141 U/L (8-55) H 02/15/20 10:42 Alkaline Phosphatase 83 U/L (40-110) 02/15/20 10:42 Troponin I 0.014 ng/mL (< 0.028) 02/15/20 10:42 B-Natriuretic Peptide 46.5 pg/mL (0-100) 02/15/20 10:42 Serum Total Protein 6.3 g/dL (5.8-8.1) 02/15/20 10:42 Albumin 3.1 g/dL (3.4-4.8) L 02/15/20 10:42 - Radiology Interpretation Chest x-ray Status: report reviewed by me (Multifocal pneumonia) Hospitalist H&P A/P - Problem (1) Acute respiratory failure with hypoxia Code(s): J96.01 - ACUTE RESPIRATORY FAILURE WITH HYPOXIA Status: Acute (2) COVID-19 virus infection Code(s): U07.1 - COVID-19 Status: Acute (3) Glioblastoma multiforme Code(s): C71.9 - MALIGNANT NEOPLASM OF BRAIN, UNSPECIFIED Status: Acute (4) Seizure disorder Code(s): G40.909 - EPILEPSY, UNSP, NOT INTRACTABLE, WITHOUT STATUS EPILEPTICUS Status: Acute (5) Hyperlipidemia Code(s): E78.5 - HYPERLIPIDEMIA, UNSPECIFIED Status: Chronic (6) Hypertension Code(s): I10 - ESSENTIAL (PRIMARY) HYPERTENSION Status: Chronic Qualifiers: Hypertension type: essential hypertension Qualified Code(s): I10 - Essential (primary) hypertension - Plan Plan: Acute resp failure with hypoxia: Due to Covid. Supplemental oxygen. Inflammatory markers. Vitamin D Vitamin C Zinc. Covid: Decadron Remdesivir Glioblastoma: Stable. Will be on decadron for covid. HTN: Continue home meds. HLD: Continue home statin. Seizure D/O: Secondary to glioblastoma. Continue Keppra. PUD proph: Pepcid DVT proph: Higher dose lovenox due to covid.
[2020-02-15] MEDS ORDERED: Acetaminophen 325 MG TAB PO PRN (13:24)
[2020-02-15] MEDS ORDERED: Dexamethasone 4 mg/ml Vial ONE (14:34)
[2020-02-15] MEDS ORDERED: Azithromycin 500 MG VIAL ONE (14:34)
[2020-02-15] MEDS ORDERED: PROVENTIL INHALER 6.7 G (200 INHALATIONS) ONE (14:34)
[2020-02-15] MEDS ORDERED: cefTRIAXone\\ROCEPHIN 1 GM VIAL ONE (14:34)
[2020-02-15] MEDS ORDERED: REMDESIVIR (EUA) 200 MG in Sodium Chloride 0.9% 250 ML 210 ML IV SCH (14:45)
[2020-02-15] MEDS ORDERED: Albuterol 200 PUFF (6.7GM INHALER) ONE (16:22)
[2020-02-15 18:31] VITALS: BMI 29.6
[2020-02-15] MEDS: Carvedilol 3.125 MG TAB PO SCH (19:27)
[2020-02-15] MEDS: Famotidine 20 MG TAB PO SCH (20:14)
[2020-02-15] MEDS: Enoxaparin Sodium 40 MG/0.4 ML SYRINGE SC SCH (20:14)
[2020-02-15] MEDS: Atorvastatin Calcium 40 MG TAB PO SCH (20:14)
[2020-02-15] MEDS: levETIRAcetam 500 MG TAB PO SCH (20:14)
[2020-02-15] MEDS: Amlodipine 5 MG TAB PO SCH (20:15)
[2020-02-16 06:03] LABS: #Lymphocytes 0.4 thou/uL (1.20-3.40); #Monocytes 0.4 thou/uL (0.11-0.59); #Neutrophils 10.1 thou/uL (1.40-6.50); %Basophils 0.2 % (0.0-1.0); %Lymphocytes 3.3 % (21.0-51.0); %Monocytes 3.9 % (0.0-10.0); %Neutrophils 92.6 % (42.0-75.0); Hemoglobin 14.2 g/dL (14.0-18.0); Mean Corpuscular HGB CONC 33.3 g/dL (32.0-36.0); Mean Corpuscular Hemoglobin 30.7 pg (27.0-31.0); Mean Platelet Volume 7.8 fL (7.4-10.4); Platelet Count 164 thou/uL (130-400); RBC Distribution Width 12.9 % (11.5-14.5); Red Blood Cell (RBC) Count 4.64 mill/uL (4.70-6.10); White Blood Cell (WBC) Count 10.9 thou/uL (4.8-10.8)
[2020-02-16 06:21] LABS: Anion Gap 16 mmol/L (10-20); BUN (Urea Nitrogen) 21 mg/dL (8.4-25.7); Calc. Creatinine Clearance 117 mL/min (70-130); Calcium 9.1 mg/dL (7.8-10.44); Carbon Dioxide 27 mmol/L (23-31); Chloride 103 mmol/L (98-107); Estimated GFR-MDRD Greater than 90; Glucose 165 mg/dL (80-115); Potassium 5.8 mmol/L (3.5-5.1); Sodium 140 mmol/L (136-145)
[2020-02-16] MEDS ORDERED: FLU VACC QS2020-21(65YR UP)/PF 240 MCG/0.7 ML SYRINGE IM ONE (09:00)
[2020-02-16] MEDS: Enoxaparin Sodium 40 MG/0.4 ML SYRINGE SC SCH ×2 (09:18→20:35)
[2020-02-16] MEDS: levETIRAcetam 500 MG TAB PO SCH ×2 (09:19→20:34)
[2020-02-16] MEDS: Ascorbic Acid 500 mg Chewable Tablet PO SCH (09:19)
[2020-02-16] MEDS: Amlodipine 5 MG TAB PO SCH ×2 (09:20→20:34)
[2020-02-16] MEDS: Zinc Sulfate 220 MG CAP PO SCH (09:20)
[2020-02-16] MEDS: Famotidine 20 MG TAB PO SCH ×2 (09:20→20:34)
[2020-02-16] MEDS: Dexamethasone 4 MG TAB PO SCH (09:20)
[2020-02-16] MEDS: Carvedilol 3.125 MG TAB PO SCH ×2 (09:20→18:04)
--- NOTE | 2020-02-16 14:00 | PDOC.HOSPP ---
- Subjective Encounter Date: 02/16/20 Encounter Time: 10:30 Subjective: c/o coughing spells and sob no diarrhea ate his breakfast well this morning - Objective Vital Signs & Weight: Vital Signs (12 hours) Temp Pulse Resp BP Pulse Ox 02/16/20 13:00 99.1 F 76 22 H 166/66 H 93 L 02/16/20 10:53 96 02/16/20 10:40 88 L 02/16/20 09:41 101.7 F H 72 36 H 145/75 H 88 L 02/16/20 08:00 88 L 02/16/20 06:40 94 L 02/16/20 05:36 90 L 02/16/20 04:20 98.3 F 68 18 138/75 92 L Weight Weight 200 lb 12.8 oz I&O: 02/15/20 02/16/20 02/17/20 06:59 06:59 06:59 Intake Total 1000 Output Total 1400 Balance -400 Result Diagrams: 02/16/20 05:36 02/16/20 05:36 Hospitalist ROS - Medication Medications: Active Medications Generic Name Dose Route Start Last Admin Trade Name Freq PRN Reason Stop Dose Admin Acetaminophen 650 mg 02/15/20 13:24 02/16/20 09:46 Acetaminophen 325 Mg Tab PO 650 mg Q4H PRN Administration Headache/Fever/Mild Pain (1-3) Amlodipine Besylate 5 mg 02/15/20 21:00 02/16/20 09:20 Amlodipine 5 Mg Tab PO 5 mg BID AG Administration Ascorbic Acid 1,000 mg 02/16/20 09:00 02/16/20 09:19 Ascorbic Acid 500 Mg Chewable Tablet PO 1,000 mg DAILY AG Administration Atorvastatin Calcium 40 mg 02/15/20 21:00 02/15/20 20:14 Atorvastatin Calcium 40 Mg Tab PO 40 mg HS AG Administration Carvedilol 3.125 mg 02/15/20 17:00 02/16/20 09:20 Carvedilol 3.125 Mg Tab PO 3.125 mg BID-WM AG Administration Dexamethasone 6 mg 02/16/20 08:00 02/16/20 09:20 Dexamethasone 4 Mg Tab PO 6 mg QAM-WM AG Administration Enoxaparin Sodium 40 mg 02/15/20 21:00 02/16/20 09:18 Enoxaparin Sodium 40 Mg/0.4 Ml Syringe SC 40 mg BID AG Administration Famotidine 20 mg 02/15/20 21:00 02/16/20 09:20 Famotidine 20 Mg Tab PO 20 mg BID AG Administration Levetiracetam 1,000 mg 02/15/20 21:00 02/16/20 09:19 Levetiracetam 500 Mg Tab PO 1,000 mg BID AG Administration Zinc Sulfate 220 mg 02/16/20 09:00 02/16/20 09:20 Zinc Sulfate 220 Mg Cap PO 220 mg DAILY AG Administration - Exam General Appearance: awake alert Eye: PERRL, anicteric sclera ENT: no oropharyngeal lesions, moist mucosa Neck: supple, no JVD Heart: RRR, no murmur Respiratory: no wheezes, no rales, rhonchi Gastrointestinal: soft, non-tender, non-distended, normal bowel sounds Extremities: no cyanosis, no edema Neurological: cranial nerve grossly intact, no focal deficits Hosp A/P (1) Pneumonia due to COVID-19 virus Code(s): U07.1 - COVID-19; J12.89 - OTHER VIRAL PNEUMONIA Status: Acute (2) Acute respiratory failure with hypoxia Code(s): J96.01 - ACUTE RESPIRATORY FAILURE WITH HYPOXIA Status: Acute (3) Glioblastoma multiforme Code(s): C71.9 - MALIGNANT NEOPLASM OF BRAIN, UNSPECIFIED Status: Chronic (4) Seizure disorder Code(s): G40.909 - EPILEPSY, UNSP, NOT INTRACTABLE, WITHOUT STATUS EPILEPTICUS Status: Chronic (5) Hyperlipidemia Code(s): E78.5 - HYPERLIPIDEMIA, UNSPECIFIED Status: Chronic Qualifiers: Hyperlipidemia type: unspecified Qualified Code(s): E78.5 - Hyperlipidemia, unspecified (6) Hypertension Code(s): I10 - ESSENTIAL (PRIMARY) HYPERTENSION Status: Chronic Qualifiers: Hypertension type: essential hypertension Qualified Code(s): I10 - Essential (primary) hypertension - Plan has had progressive decline in saturations and went from nasal canula, ventimask to high flow O2 now d/w of potential intubation if he gets worse has h/o glioblastoma with progression per , not on any medications, they are waiting for experimental treatment/regimen at [facility] d/w , she is aware of poor prognosis and wants everything done, patient himself wants to be full code as well. is on remedesivir, dexamethasone, nebs, keppra, norvasc, lipitor and coreg prognosis poor.
[2020-02-16] MEDS ORDERED: REMDESIVIR (EUA) 100 MG in Sodium Chloride 0.9% 250 ML 230 ML IV SCH (18:00)
[2020-02-16] MEDS: Cholecalciferol (Vitamin D3) 400 UNITS TAB PO SCH (18:04)
[2020-02-16] MEDS: REMDESIVIR (EUA) 100 MG in Sodium Chloride 0.9% 250 ML 230 ML IV SCH (18:04)
[2020-02-16] MEDS: Atorvastatin Calcium 40 MG TAB PO SCH (20:35)
--- NOTE | 2020-02-16 22:37 | CON ---
DATE OF CONSULTATION: 02/16/2020 CHIEF COMPLAINT: COVID pneumonia. HISTORY OF PRESENT ILLNESS: Mr. Villatoro is a 69-year-old gentleman who was found to have glioblastoma of the right posterior occipital brain in June of 2018. He had a resection followed by postoperative radio chemotherapy and did well until about 2 weeks ago when he had a seizure. He was admitted to the hospital and the scan at that time demonstrated an increase in the size of the residual tumor. He was placed on Keppra and has been referred to [facility] for possible inclusion in a clinical trial. He has not yet had that appointment. According to his about 4 to 5 days after he was discharged from the hospital he came down with respiratory symptoms and a diagnosis of COVID pneumonia was made. The patient's and one other family member became ill within the next 24-48 hours. He was at home until yesterday when he noted increasing shortness of breath and falling oxygen saturations at which time he presented to the emergency room here. His chest x-ray shows mild pneumonia consistent with COVID. He was indeed hypoxemic and has been admitted to the hospital. He received a dose of remdesivir yesterday, apparently the last dose in the pharmacy before their supply was completed. He has not received convalescent plasma. He was initially treated with nasal cannula oxygen, but over the course of 24 hours has gone to a simple mask and is now on high-flow nasal cannula at 60%. The patient reports intermittent cough, but no purulent sputum. He does describe a sensation that he has "junk stuck in the chest." He has had no further fevers or chills. He denies any difficulty with smell or taste. He has not had any nausea or vomiting. SOCIAL HISTORY: The patient is a 69-year-old gentleman. He reports intolerance to codeine (nausea). He has a very trivial remote smoking history. MEDICATIONS: His home medication list has been reviewed. SOCIAL HISTORY: He lives with his . The patient and his have discussed end of life care and have been seen in palliative care consultation on his previous admission. At that time, they continued to wish full code resuscitation, although I think at least his is beginning to put the pieces together regarding his mortality associated with COVID pneumonia as well as his recurrent and effectively untreatable glioblastoma of the brain. PAST MEDICAL HISTORY: Remarkable for glioblastoma, hypertension, dyslipidemia and secondary seizures. REVIEW OF SYSTEMS: Remarkable as above. PHYSICAL EXAMINATION: VITAL SIGNS: Blood pressure 166/66. He is on high-flow nasal cannula 60 L at 55%. Saturations 93, respirations 22. He is currently afebrile, but earlier this morning he had a temperature of 101.7. His heart rate is 76. GENERAL: He is slightly confused. He is having some difficulty hearing because of the high-flow cannula. He has difficulty with word search such as the name of some of his medications. He has no oral Meghan. He has no cervical or supraclavicular lymphadenopathy. LUNGS: Reveal scattered coarse rhonchi, but no wheezing. He is mildly labored. HEART: Regular rate and rhythm. ABDOMEN: Soft. Bowel sounds are normal. EXTREMITIES: Show no cords, tenderness, cyanosis, or clubbing. LABORATORY DATA: White count 10,900, hemoglobin 14.2 with hematocrit 42.7, platelet count of 167,000. Chemistries include sodium 140, potassium 5.8, chloride 103, CO2 is 27, BUN 21, and creatinine 0.77. Chest x-ray demonstrates normal size cardiac silhouette. He has some asymmetric consolidation especially on the right lung. His most recent previous chest x-ray is from May 2018 and at that time was unremarkable. IMPRESSION: 1. COVID pneumonia with worsening oxygenation despite increasing FiO2 supply. 2. Recurrent glioblastoma of the right posterior occiput, amenable only to experimental protocol for which he has not yet been seen in consultation nor excepted for participation. 3. History of hypertension. RECOMMENDATIONS: We will continue current regimen including his remdesivir. He is on supplemental oxygen and we will titrate to a saturation of approximately 90. He has received steroids and Lovenox per protocol. I have had a long conversation with the patient's about his condition and the potential for worsening. At this point, she is hopeful, although somewhat inappropriately so, that he would recover. I have told her that she should begin thinking about this. I would not recommend he go on the ventilator if he continues to deteriorate and I have made that recommendation on the basis of his incurable brain cancer. She will continue trying to have conversation with him. Unfortunately, we have little to offer at this point, except continued supportive therapy. The Pulmonary Service will continue to follow. Thank you for this consultation. Job ID: [id number]
[2020-02-17] MEDS: Ascorbic Acid 500 mg Chewable Tablet PO SCH (09:46)
[2020-02-17] MEDS: Cholecalciferol (Vitamin D3) 400 UNITS TAB PO SCH (09:46)
[2020-02-17] MEDS: Dexamethasone 4 MG TAB PO SCH ×2 (09:46→20:30)
[2020-02-17] MEDS: levETIRAcetam 500 MG TAB PO SCH ×2 (09:46→20:29)
[2020-02-17] MEDS: Famotidine 20 MG TAB PO SCH ×2 (09:46→20:29)
[2020-02-17] MEDS: Zinc Sulfate 220 MG CAP PO SCH (09:46)
[2020-02-17 09:47] LABS: #Basophils 0.1 thou/uL (0.0-0.2); #Lymphocytes 0.4 thou/uL (1.20-3.40); #Monocytes 0.3 thou/uL (0.11-0.59); #Neutrophils 9.6 thou/uL (1.40-6.50); %Basophils 0.7 % (0.0-1.0); %Eosinophils 0.1 % (0.0-10.0); %Lymphocytes 4.1 % (21.0-51.0); %Monocytes 2.7 % (0.0-10.0); %Neutrophils 92.4 % (42.0-75.0); Hemoglobin 13.8 g/dL (14.0-18.0); Mean Corpuscular HGB CONC 33.4 g/dL (32.0-36.0); Mean Corpuscular Hemoglobin 30.8 pg (27.0-31.0); Mean Corpuscular Volume 92.4 fL (78.0-98.0); Mean Platelet Volume 7.8 fL (7.4-10.4); Platelet Count 153 thou/uL (130-400); RBC Distribution Width 12.8 % (11.5-14.5); Red Blood Cell (RBC) Count 4.48 mill/uL (4.70-6.10); White Blood Cell (WBC) Count 10.4 thou/uL (4.8-10.8)
[2020-02-17] MEDS: Carvedilol 3.125 MG TAB PO SCH ×2 (09:47→17:49)
[2020-02-17] MEDS: Amlodipine 5 MG TAB PO SCH ×2 (09:47→20:31)
[2020-02-17] MEDS: Enoxaparin Sodium 40 MG/0.4 ML SYRINGE SC SCH ×2 (09:50→20:29)
[2020-02-17 10:15] LABS: ALT (SGPT) 238 U/L (8-55); AST (SGOT) 109 U/L (5-34); Albumin 2.7 g/dL (3.4-4.8); Alkaline Phosphatase 88 U/L (40-110); Anion Gap 10 mmol/L (10-20); BUN (Urea Nitrogen) 17 mg/dL (8.4-25.7); Bilirubin, Total 0.6 mg/dL (0.2-1.2); Calc. Creatinine Clearance 134 mL/min (70-130); Calcium 8.4 mg/dL (7.8-10.44); Carbon Dioxide 30 mmol/L (23-31); Chloride 103 mmol/L (98-107); Estimated GFR-MDRD Greater than 90; Globulin 3.2 g/dL (2.4-3.5); Glucose 123 mg/dL (80-115); Potassium 4.3 mmol/L (3.5-5.1); Protein, Total 5.9 g/dL (5.8-8.1); Sodium 139 mmol/L (136-145)
--- NOTE | 2020-02-17 12:51 | PRG ---
DATE OF SERVICE: 02/17/2020 SUBJECTIVE: Ronn Villatoro is a 69-year-old gentleman with barrera positive infection, hypoxemia, on high-flow. He appears to be somewhat better today. He got his remdesivir recently. He had an MRI done during his last admission, followed by Oncology. It shows presence of worsening malignancy in his right parietal lobe with more tumor extension. OBJECTIVE: VITAL SIGNS: Temperature 98, pulse 63, saturations are 90% on high flow, respirations 18, blood pressure 180/67. CHEST: No wheezing. No crackles. CARDIAC: Normal S1, S2. No gallops. ABDOMEN: No masses. DIAGNOSTIC STUDIES: X-ray, no obvious masses. Nonspecific bilateral infiltrates. IMPRESSION: Barrera positive, bilateral bronchopneumonia, respiratory failure, glioblastoma worsening. PLAN: Added plasma to his present regime. I have increased the dose of his steroids. Pulmonary is going to follow. Job ID: [id number]
--- NOTE | 2020-02-17 13:55 | PDOC.HOSPP ---
- Subjective Encounter Date: 02/17/20 Encounter Time: 08:40 Subjective: feels better, says high flow O2 has helped him very much not much coughing spells now is able to talk without sob this morning is eating well - Objective Vital Signs & Weight: Vital Signs (12 hours) Temp Pulse Resp BP Pulse Ox 02/17/20 09:00 98.3 F 65 20 135/79 94 L 02/17/20 04:29 63 18 96 Weight Weight 200 lb 12.8 oz I&O: 02/16/20 02/17/20 02/18/20 06:59 06:59 06:59 Intake Total 1000 400 Output Total 1400 1800 Balance -400 -1400 Result Diagrams: 02/17/20 08:52 02/17/20 08:52 Hospitalist ROS - Medication Medications: Active Medications Generic Name Dose Route Start Last Admin Trade Name Freq PRN Reason Stop Dose Admin Acetaminophen 650 mg 02/15/20 13:24 02/16/20 09:46 Acetaminophen 325 Mg Tab PO 650 mg Q4H PRN Administration Headache/Fever/Mild Pain (1-3) Amlodipine Besylate 5 mg 02/15/20 21:00 02/17/20 09:47 Amlodipine 5 Mg Tab PO 5 mg BID AG Administration Ascorbic Acid 1,000 mg 02/16/20 09:00 02/17/20 09:46 Ascorbic Acid 500 Mg Chewable Tablet PO 1,000 mg DAILY AG Administration Atorvastatin Calcium 40 mg 02/15/20 21:00 02/16/20 20:35 Atorvastatin Calcium 40 Mg Tab PO 40 mg HS AG Administration Carvedilol 3.125 mg 02/15/20 17:00 02/17/20 09:47 Carvedilol 3.125 Mg Tab PO 3.125 mg BID-WM AG Administration Cholecalciferol 400 units 02/16/20 09:00 02/17/20 09:46 Cholecalciferol (Vitamin D3) 400 Units Tab PO 400 units DAILY AG Administration Enoxaparin Sodium 40 mg 02/15/20 21:00 02/17/20 09:50 Enoxaparin Sodium 40 Mg/0.4 Ml Syringe SC 40 mg BID AG Administration Famotidine 20 mg 02/15/20 21:00 02/17/20 09:46 Famotidine 20 Mg Tab PO 20 mg BID AG Administration Remdesivir 100 mg/ Sodium 250 mls @ 250 mls/hr 02/16/20 18:00 02/16/20 18:04 Chloride IV 02/19/20 18:59 250 mls 1800 AG Administration Levetiracetam 1,000 mg 02/15/20 21:00 02/17/20 09:46 Levetiracetam 500 Mg Tab PO 1,000 mg BID AG Administration Zinc Sulfate 220 mg 02/16/20 09:00 02/17/20 09:46 Zinc Sulfate 220 Mg Cap PO 220 mg DAILY AG Administration - Exam General Appearance: awake alert Eye: PERRL, anicteric sclera ENT: no oropharyngeal lesions, moist mucosa Neck: supple, no JVD Heart: RRR, no murmur Respiratory: no wheezes, no rales, rhonchi Gastrointestinal: soft, non-tender, non-distended, normal bowel sounds Extremities: no cyanosis, no edema Neurological: cranial nerve grossly intact, no focal deficits Hosp A/P (1) Pneumonia due to COVID-19 virus Code(s): U07.1 - COVID-19; J12.89 - OTHER VIRAL PNEUMONIA Status: Acute (2) Acute respiratory failure with hypoxia Code(s): J96.01 - ACUTE RESPIRATORY FAILURE WITH HYPOXIA Status: Acute (3) Glioblastoma multiforme Code(s): C71.9 - MALIGNANT NEOPLASM OF BRAIN, UNSPECIFIED Status: Chronic (4) Seizure disorder Code(s): G40.909 - EPILEPSY, UNSP, NOT INTRACTABLE, WITHOUT STATUS EPILEPTICUS Status: Chronic (5) Hyperlipidemia Code(s): E78.5 - HYPERLIPIDEMIA, UNSPECIFIED Status: Chronic Qualifiers: Hyperlipidemia type: unspecified Qualified Code(s): E78.5 - Hyperlipidemia, unspecified (6) Hypertension Code(s): I10 - ESSENTIAL (PRIMARY) HYPERTENSION Status: Chronic Qualifiers: Hypertension type: essential hypertension Qualified Code(s): I10 - Essential (primary) hypertension - Plan is on high flow O2, remdesivir, will get one dose convalescent plasma and is on steroids. he is donot intubate now, palliative care is following patient and is speaking with . has h/o glioblastoma with progression per , not on any medications, they are waiting for experimental treatment/regimen at [facility] continue nebs, keppra, norvasc, lipitor and coreg prognosis poor.
[2020-02-17] MEDS: REMDESIVIR (EUA) 100 MG in Sodium Chloride 0.9% 250 ML 230 ML IV SCH (17:53)
[2020-02-17] MEDS: Atorvastatin Calcium 40 MG TAB PO SCH (20:30)
[2020-02-18 06:12] LABS: #Lymphocytes 0.4 thou/uL (1.20-3.40); #Monocytes 0.2 thou/uL (0.11-0.59); #Neutrophils 8.1 thou/uL (1.40-6.50); %Basophils 0.1 % (0.0-1.0); %Eosinophils 0.1 % (0.0-10.0); %Monocytes 2.2 % (0.0-10.0); %Neutrophils 93.7 % (42.0-75.0); Mean Corpuscular HGB CONC 32.7 g/dL (32.0-36.0); Mean Corpuscular Volume 91.7 fL (78.0-98.0); Mean Platelet Volume 7.5 fL (7.4-10.4); Platelet Count 166 thou/uL (130-400); RBC Distribution Width 12.8 % (11.5-14.5); Red Blood Cell (RBC) Count 4.66 mill/uL (4.70-6.10); White Blood Cell (WBC) Count 8.7 thou/uL (4.8-10.8)
[2020-02-18 06:30] LABS: ALT (SGPT) 194 U/L (8-55); AST (SGOT) 70 U/L (5-34); Albumin 2.9 g/dL (3.4-4.8); Alkaline Phosphatase 95 U/L (40-110); Anion Gap 16 mmol/L (10-20); BUN (Urea Nitrogen) 17 mg/dL (8.4-25.7); Bilirubin, Total 0.6 mg/dL (0.2-1.2); Calc. Creatinine Clearance 132 mL/min (70-130); Calcium 8.5 mg/dL (7.8-10.44); Carbon Dioxide 25 mmol/L (23-31); Chloride 105 mmol/L (98-107); Estimated GFR-MDRD Greater than 90; Globulin 3.1 g/dL (2.4-3.5); Glucose 186 mg/dL (80-115); Potassium 4.8 mmol/L (3.5-5.1); Sodium 141 mmol/L (136-145)
[2020-02-18] MEDS: Carvedilol 3.125 MG TAB PO SCH ×2 (08:58→17:32)
[2020-02-18] MEDS: Ascorbic Acid 500 mg Chewable Tablet PO SCH (08:58)
[2020-02-18] MEDS: Amlodipine 5 MG TAB PO SCH ×2 (08:59→19:45)
[2020-02-18] MEDS: Zinc Sulfate 220 MG CAP PO SCH (08:59)
[2020-02-18] MEDS: Famotidine 20 MG TAB PO SCH ×2 (08:59→19:44)
[2020-02-18] MEDS: Dexamethasone 4 MG TAB PO SCH ×2 (08:59→19:44)
[2020-02-18] MEDS: levETIRAcetam 500 MG TAB PO SCH ×2 (08:59→19:45)
[2020-02-18] MEDS: Enoxaparin Sodium 40 MG/0.4 ML SYRINGE SC SCH ×2 (09:00→19:45)
[2020-02-18] MEDS: Cholecalciferol (Vitamin D3) 400 UNITS TAB PO SCH (09:00)
--- NOTE | 2020-02-18 11:28 | PRG ---
DATE OF SERVICE: 02/18/2020 SUBJECTIVE: Ronn Villatoro is a 69-year-old gentleman sitting in the bed on high-flow. OBJECTIVE: VITAL SIGNS: Temperature 99, pulse 62, respirations 20, saturations are 94%, flow rate is 60, at 55%. Blood pressure 124/75. CHEST: No wheezing. No crackles. CARDIAC: Normal S1, S2. No gallops. ABDOMEN: No masses. ASSESSMENT: Respiratory failure, ndiaye positive pneumonia. He is getting remdesivir, steroids, and convalescent plasma. Continue PT, supportive care. He was told to lay on his stomach as much as possible. Job ID: [id number]
--- NOTE | 2020-02-18 13:29 | PDOC.HOSPP ---
- Subjective Encounter Date: 02/18/20 Encounter Time: 10:30 Subjective: is comfortable on high flow O2 is oriented and follows verbal stimuli ate his breakfast completely sats drop to 86% when he tries to talk but pt is comfortable and oriented - Objective Vital Signs & Weight: Vital Signs (12 hours) Temp Pulse Resp BP Pulse Ox 02/18/20 09:00 97.9 F 68 20 145/80 H 92 L 02/18/20 05:00 99 F 64 20 124/75 94 L Weight Weight 200 lb 12.8 oz Most Recent Monitor Data Heart Rate from ECG 69 NIBP 122/73 I&O: 02/17/20 02/18/20 02/19/20 06:59 06:59 06:59 Intake Total 400 1650 Output Total 1800 2630 Balance -1400 -980 Result Diagrams: 02/18/20 05:36 02/18/20 05:36 Hospitalist ROS - Medication Medications: Active Medications Generic Name Dose Route Start Last Admin Trade Name Freq PRN Reason Stop Dose Admin Acetaminophen 650 mg 02/15/20 13:24 02/16/20 09:46 Acetaminophen 325 Mg Tab PO 650 mg Q4H PRN Administration Headache/Fever/Mild Pain (1-3) Amlodipine Besylate 5 mg 02/15/20 21:00 02/18/20 08:59 Amlodipine 5 Mg Tab PO 5 mg BID AG Administration Ascorbic Acid 1,000 mg 02/16/20 09:00 02/18/20 08:58 Ascorbic Acid 500 Mg Chewable Tablet PO 1,000 mg DAILY AG Administration Atorvastatin Calcium 40 mg 02/15/20 21:00 02/17/20 20:30 Atorvastatin Calcium 40 Mg Tab PO 40 mg HS AG Administration Carvedilol 3.125 mg 02/15/20 17:00 02/18/20 08:58 Carvedilol 3.125 Mg Tab PO 3.125 mg BID-WM AG Administration Cholecalciferol 400 units 02/16/20 09:00 02/18/20 09:00 Cholecalciferol (Vitamin D3) 400 Units Tab PO 400 units DAILY AG Administration Dexamethasone 6 mg 02/17/20 21:00 02/18/20 08:59 Dexamethasone 4 Mg Tab PO 6 mg BID AG Administration Enoxaparin Sodium 40 mg 02/15/20 21:00 02/18/20 09:00 Enoxaparin Sodium 40 Mg/0.4 Ml Syringe SC 40 mg BID AG Administration Famotidine 20 mg 02/15/20 21:00 02/18/20 08:59 Famotidine 20 Mg Tab PO 20 mg BID AG Administration Remdesivir 100 mg/ Sodium 250 mls @ 250 mls/hr 02/16/20 18:00 02/17/20 17:53 Chloride IV 02/19/20 18:59 250 mls 1800 AG Administration Levetiracetam 1,000 mg 02/15/20 21:00 02/18/20 08:59 Levetiracetam 500 Mg Tab PO 1,000 mg BID AG Administration Zinc Sulfate 220 mg 02/16/20 09:00 02/18/20 08:59 Zinc Sulfate 220 Mg Cap PO 220 mg DAILY GA Administration - Exam General Appearance: awake alert Eye: PERRL, anicteric sclera ENT: no oropharyngeal lesions, moist mucosa Neck: supple, no JVD Heart: RRR, no murmur Respiratory: no wheezes, rales, rhonchi Gastrointestinal: soft, non-tender, non-distended, normal bowel sounds Extremities: no cyanosis, no edema Neurological: cranial nerve grossly intact, no focal deficits Psychiatric: A&O x 3 Hosp A/P (1) Pneumonia due to COVID-19 virus Code(s): U07.1 - COVID-19; J12.89 - OTHER VIRAL PNEUMONIA Status: Acute (2) Acute respiratory failure with hypoxia Code(s): J96.01 - ACUTE RESPIRATORY FAILURE WITH HYPOXIA Status: Acute (3) Glioblastoma multiforme Code(s): C71.9 - MALIGNANT NEOPLASM OF BRAIN, UNSPECIFIED Status: Chronic (4) Seizure disorder Code(s): G40.909 - EPILEPSY, UNSP, NOT INTRACTABLE, WITHOUT STATUS EPILEPTICUS Status: Chronic (5) Hyperlipidemia Code(s): E78.5 - HYPERLIPIDEMIA, UNSPECIFIED Status: Chronic Qualifiers: Hyperlipidemia type: unspecified Qualified Code(s): E78.5 - Hyperlipidemia, unspecified (6) Hypertension Code(s): I10 - ESSENTIAL (PRIMARY) HYPERTENSION Status: Chronic Qualifiers: Hypertension type: essential hypertension Qualified Code(s): I10 - Essential (primary) hypertension - Plan is on high flow O2, remdesivir, got one dose convalescent plasma (02/16) and is on steroids. he is donot intubate. d/w and gave full updates has h/o glioblastoma with progression per , not on any medications, they are waiting for experimental treatment/regimen at [facility] continue tapan garrison norvasc, lipitor and coreg prognosis poor. counselled to lay on sides when on bed, oob to chair as tolerated
[2020-02-18] MEDS: REMDESIVIR (EUA) 100 MG in Sodium Chloride 0.9% 250 ML 230 ML IV SCH (17:32)
[2020-02-18] MEDS: Atorvastatin Calcium 40 MG TAB PO SCH (19:45)
[2020-02-19 06:42] LABS: #Basophils 0.1 thou/uL (0.0-0.2); #Lymphocytes 0.3 thou/uL (1.20-3.40); #Monocytes 0.2 thou/uL (0.11-0.59); #Neutrophils 8.4 thou/uL (1.40-6.50); %Basophils 0.8 % (0.0-1.0); %Eosinophils 0.1 % (0.0-10.0); %Lymphocytes 3.2 % (21.0-51.0); %Monocytes 2.2 % (0.0-10.0); %Neutrophils 93.8 % (42.0-75.0); Hemoglobin 14.5 g/dL (14.0-18.0); Mean Corpuscular HGB CONC 33.6 g/dL (32.0-36.0); Mean Corpuscular Hemoglobin 30.7 pg (27.0-31.0); Mean Corpuscular Volume 91.4 fL (78.0-98.0); Mean Platelet Volume 7.5 fL (7.4-10.4); Platelet Count 182 thou/uL (130-400); RBC Distribution Width 12.7 % (11.5-14.5); Red Blood Cell (RBC) Count 4.73 mill/uL (4.70-6.10); White Blood Cell (WBC) Count 8.9 thou/uL (4.8-10.8)
[2020-02-19 07:09] LABS: ALT (SGPT) 144 U/L (8-55); AST (SGOT) 40 U/L (5-34); Albumin 2.9 g/dL (3.4-4.8); Alkaline Phosphatase 101 U/L (40-110); Anion Gap 16 mmol/L (10-20); BUN (Urea Nitrogen) 20 mg/dL (8.4-25.7); Bilirubin, Total 0.6 mg/dL (0.2-1.2); Calc. Creatinine Clearance 121 mL/min (70-130); Calcium 8.8 mg/dL (7.8-10.44); Carbon Dioxide 24 mmol/L (23-31); Chloride 105 mmol/L (98-107); Estimated GFR-MDRD Greater than 90; Globulin 3.1 g/dL (2.4-3.5); Glucose 212 mg/dL (80-115); Potassium 4.6 mmol/L (3.5-5.1); Sodium 140 mmol/L (136-145)
[2020-02-19] MEDS: Famotidine 20 MG TAB PO SCH ×2 (08:41→20:21)
[2020-02-19] MEDS: levETIRAcetam 500 MG TAB PO SCH ×2 (08:41→20:20)
[2020-02-19] MEDS: Cholecalciferol (Vitamin D3) 400 UNITS TAB PO SCH (08:41)
[2020-02-19] MEDS: Ascorbic Acid 500 mg Chewable Tablet PO SCH (08:41)
[2020-02-19] MEDS: Dexamethasone 4 MG TAB PO SCH ×2 (08:43→20:21)
[2020-02-19] MEDS: Zinc Sulfate 220 MG CAP PO SCH (08:44)
[2020-02-19] MEDS: Carvedilol 3.125 MG TAB PO SCH ×2 (08:44→17:49)
[2020-02-19] MEDS: Amlodipine 5 MG TAB PO SCH ×2 (08:44→20:21)
[2020-02-19] MEDS: Enoxaparin Sodium 40 MG/0.4 ML SYRINGE SC SCH ×2 (08:45→20:20)
--- NOTE | 2020-02-19 12:18 | PRG ---
DATE OF SERVICE: 02/19/2020 SUBJECTIVE: Ronn Villatoro is a 69-year-old gentleman. OBJECTIVE: VITAL SIGNS: Temperature 97, pulse high-flow, blood pressure . CHEST: No wheezing. No crackles. CARDIAC: Normal S1, S2. No gallops. ABDOMEN: No masses. LABORATORY DATA: Unremarkable. Liver function slightly elevated, ALT is 144. He is on remdesivir. ASSESSMENT: Barrera positive pneumonia, respiratory failure, is still on Decadron, finished his remdesivir. He has had convalescent plasma. Baseline chest x-ray being ordered. Job ID: [id number]
--- NOTE | 2020-02-19 12:53 | PDOC.HOSPP ---
- Subjective Encounter Date: 02/19/20 Encounter Time: 09:00 Subjective: awake, feels better no sob on high flow although spo2 runs around 83-90% is eating his breakfast - Objective Vital Signs & Weight: Vital Signs (12 hours) Temp Pulse Pulse Pulse Resp BP BP 02/19/20 11:43 60 20 02/19/20 10:06 63 53 L 117/73 118/74 02/19/20 08:45 02/19/20 08:00 97.7 F 64 20 BP Pulse Ox Pulse Ox Pulse Ox Pulse Ox 02/19/20 11:43 124/74 92 L 02/19/20 10:06 89 L 81 L 95 02/19/20 08:45 93 L 02/19/20 08:00 118/73 93 L Weight Weight 200 lb 12.8 oz Most Recent Monitor Data Heart Rate from ECG 69 NIBP 122/73 I&O: 02/18/20 02/19/20 02/20/20 06:59 06:59 06:59 Intake Total 1650 2050 Output Total 2630 3350 Balance -980 -1300 Result Diagrams: 02/19/20 06:11 02/19/20 06:11 Hospitalist ROS - Medication Medications: Active Medications Generic Name Dose Route Start Last Admin Trade Name Freq PRN Reason Stop Dose Admin Acetaminophen 650 mg 02/15/20 13:24 02/16/20 09:46 Acetaminophen 325 Mg Tab PO 650 mg Q4H PRN Administration Headache/Fever/Mild Pain (1-3) Amlodipine Besylate 5 mg 02/15/20 21:00 02/19/20 08:44 Amlodipine 5 Mg Tab PO 5 mg BID AG Administration Ascorbic Acid 1,000 mg 02/16/20 09:00 02/19/20 08:41 Ascorbic Acid 500 Mg Chewable Tablet PO 1,000 mg DAILY AG Administration Atorvastatin Calcium 40 mg 02/15/20 21:00 02/18/20 19:45 Atorvastatin Calcium 40 Mg Tab PO 40 mg HS AG Administration Carvedilol 3.125 mg 02/15/20 17:00 02/19/20 08:44 Carvedilol 3.125 Mg Tab PO 3.125 mg BID-WM AG Administration Cholecalciferol 400 units 02/16/20 09:00 02/19/20 08:41 Cholecalciferol (Vitamin D3) 400 Units Tab PO 400 units DAILY AG Administration Dexamethasone 6 mg 02/17/20 21:00 02/19/20 08:43 Dexamethasone 4 Mg Tab PO 6 mg BID AG Administration Enoxaparin Sodium 40 mg 02/15/20 21:00 02/19/20 08:45 Enoxaparin Sodium 40 Mg/0.4 Ml Syringe SC 40 mg BID AG Administration Famotidine 20 mg 02/15/20 21:00 02/19/20 08:41 Famotidine 20 Mg Tab PO 20 mg BID AG Administration Remdesivir 100 mg/ Sodium 250 mls @ 250 mls/hr 02/16/20 18:00 02/18/20 17:32 Chloride IV 02/19/20 18:59 250 mls 1800 AG Administration Levetiracetam 1,000 mg 02/15/20 21:00 02/19/20 08:41 Levetiracetam 500 Mg Tab PO 1,000 mg BID AG Administration Zinc Sulfate 220 mg 02/16/20 09:00 02/19/20 08:44 Zinc Sulfate 220 Mg Cap PO 220 mg DAILY AG Administration - Exam General Appearance: awake alert Eye: PERRL, anicteric sclera ENT: no oropharyngeal lesions, moist mucosa Neck: supple, no JVD Heart: RRR, no murmur Respiratory: no wheezes, rales, rhonchi Gastrointestinal: soft, non-tender, non-distended, normal bowel sounds Extremities: no cyanosis, no edema Neurological: cranial nerve grossly intact, no focal deficits Psychiatric: A&O x 3 Hosp A/P (1) Pneumonia due to COVID-19 virus Code(s): U07.1 - COVID-19; J12.89 - OTHER VIRAL PNEUMONIA Status: Acute (2) Acute respiratory failure with hypoxia Code(s): J96.01 - ACUTE RESPIRATORY FAILURE WITH HYPOXIA Status: Acute (3) Glioblastoma multiforme Code(s): C71.9 - MALIGNANT NEOPLASM OF BRAIN, UNSPECIFIED Status: Chronic (4) Seizure disorder Code(s): G40.909 - EPILEPSY, UNSP, NOT INTRACTABLE, WITHOUT STATUS EPILEPTICUS Status: Chronic (5) Hyperlipidemia Code(s): E78.5 - HYPERLIPIDEMIA, UNSPECIFIED Status: Chronic Qualifiers: Hyperlipidemia type: unspecified Qualified Code(s): E78.5 - Hyperlipidemia, unspecified (6) Hypertension Code(s): I10 - ESSENTIAL (PRIMARY) HYPERTENSION Status: Chronic Qualifiers: Hypertension type: essential hypertension Qualified Code(s): I10 - Essential (primary) hypertension - Plan is on high flow O2, remdesivir, got one dose convalescent plasma (02/16) and is on steroids. he is donot intubate. d/w and gave full updates daily. has h/o glioblastoma with progression per , not on any medications, they are waiting for experimental treatment/regimen at [facility] continue nebs, keppra, norvasc, lipitor and coreg prognosis poor. counselled to lay on sides when on bed, oob to chair as tolerated will finish his remdesivir course today, cxr is ordered for today, will f/u PT eval with high flow
--- NOTE | 2020-02-19 13:34 | RAD ---
Exam: Chest one view HISTORY:COVID positive patient. Comparison: 02/15/2020 FINDINGS: Cardiac silhouette: Normal Aorta: Unremarkable Pulmonary vessels: Normal Costophrenic angles: Clear LUNGS: Persistent multi focal interstitial and alveolar opacities. Pneumothorax: None Osseous abnormalities: None IMPRESSION: Stable COVID pneumonia.
[2020-02-19] MEDS: REMDESIVIR (EUA) 100 MG in Sodium Chloride 0.9% 250 ML 230 ML IV SCH (17:49)
[2020-02-19] MEDS: Atorvastatin Calcium 40 MG TAB PO SCH (20:21)
[2020-02-20 06:42] LABS: #Lymphocytes 0.3 thou/uL (1.20-3.40); #Monocytes 0.1 thou/uL (0.11-0.59); #Neutrophils 8.7 thou/uL (1.40-6.50); %Eosinophils 0.1 % (0.0-10.0); %Lymphocytes 3.5 % (21.0-51.0); %Monocytes 0.8 % (0.0-10.0); %Neutrophils 95.5 % (42.0-75.0); Hemoglobin 14.2 g/dL (14.0-18.0); Mean Corpuscular HGB CONC 34.1 g/dL (32.0-36.0); Mean Corpuscular Volume 90.9 fL (78.0-98.0); Mean Platelet Volume 7.4 fL (7.4-10.4); Platelet Count 184 thou/uL (130-400); RBC Distribution Width 12.6 % (11.5-14.5); Red Blood Cell (RBC) Count 4.59 mill/uL (4.70-6.10); White Blood Cell (WBC) Count 9.1 thou/uL (4.8-10.8)
[2020-02-20 07:03] LABS: ALT (SGPT) 99 U/L (8-55); AST (SGOT) 26 U/L (5-34); Albumin 2.5 g/dL (3.4-4.8); Alkaline Phosphatase 102 U/L (40-110); Anion Gap 13 mmol/L (10-20); BUN (Urea Nitrogen) 18 mg/dL (8.4-25.7); Bilirubin, Total 0.5 mg/dL (0.2-1.2); Calc. Creatinine Clearance 134 mL/min (70-130); Carbon Dioxide 24 mmol/L (23-31); Chloride 105 mmol/L (98-107); Estimated GFR-MDRD Greater than 90; Globulin 2.9 g/dL (2.4-3.5); Glucose 286 mg/dL (80-115); Potassium 3.8 mmol/L (3.5-5.1); Protein, Total 5.4 g/dL (5.8-8.1); Sodium 138 mmol/L (136-145)
[2020-02-20] MEDS: Cholecalciferol (Vitamin D3) 400 UNITS TAB PO SCH (08:36)
[2020-02-20] MEDS: Ascorbic Acid 500 mg Chewable Tablet PO SCH (08:36)
[2020-02-20] MEDS: Carvedilol 3.125 MG TAB PO SCH ×2 (08:36→16:34)
[2020-02-20] MEDS: Amlodipine 5 MG TAB PO SCH ×2 (08:36→20:06)
[2020-02-20] MEDS: Dexamethasone 4 MG TAB PO SCH ×2 (08:36→20:04)
[2020-02-20] MEDS: Famotidine 20 MG TAB PO SCH ×2 (08:37→20:04)
[2020-02-20] MEDS: Zinc Sulfate 220 MG CAP PO SCH (08:37)
[2020-02-20] MEDS: Enoxaparin Sodium 40 MG/0.4 ML SYRINGE SC SCH ×2 (08:37→20:04)
[2020-02-20] MEDS: levETIRAcetam 500 MG TAB PO SCH ×2 (08:37→20:06)
--- NOTE | 2020-02-20 10:03 | PRG ---
DATE OF SERVICE: 02/20/2020 SUBJECTIVE: Ronn Villatoro is a 69-year-old male. OBJECTIVE: VITAL SIGNS: This morning, his temperature 98, pulse 68, sats are 99% on 60 flow rate, 50% FiO2. CHEST: No wheezing. No crackles. CARDIAC: Normal S1, S2. No gallops. Abdomen: No masses. LABORATORY DATA: Unremarkable. Chest x-ray looks relatively stable with no worsening infiltrates. C-reactive protein is down to 1.96. ASSESSMENT: Respiratory failure, ndiaye positive pneumonia, slowly improving. Apparently, there was some placement for him. Once he has finished his remdesivir, he can be switched over to oral prednisone, tapered over several weeks. Job ID: [id number]
--- NOTE | 2020-02-20 13:10 | PDOC.HOSPP ---
- Subjective Encounter Date: 02/20/20 Encounter Time: 08:40 Subjective: is eating breakfast, feels better is on high flow - Objective Vital Signs & Weight: Vital Signs (12 hours) Temp Pulse Resp BP Pulse Ox 02/20/20 12:45 97.8 F 63 18 129/73 90 L 02/20/20 11:21 97 02/20/20 09:40 59 L 16 133/69 95 02/20/20 08:36 68 Weight Weight 200 lb 12.8 oz Most Recent Monitor Data Heart Rate from ECG 69 NIBP 122/73 I&O: 02/19/20 02/20/20 02/21/20 06:59 06:59 06:59 Intake Total 2050 2300 240 Output Total 3350 2725 Balance -1300 -425 240 Result Diagrams: 02/20/20 06:13 02/20/20 06:13 Hospitalist ROS - Medication Medications: Active Medications Generic Name Dose Route Start Last Admin Trade Name Freq PRN Reason Stop Dose Admin Acetaminophen 650 mg 02/15/20 13:24 02/16/20 09:46 Acetaminophen 325 Mg Tab PO 650 mg Q4H PRN Administration Headache/Fever/Mild Pain (1-3) Amlodipine Besylate 5 mg 02/15/20 21:00 02/20/20 08:36 Amlodipine 5 Mg Tab PO 5 mg BID AG Administration Ascorbic Acid 1,000 mg 02/16/20 09:00 02/20/20 08:36 Ascorbic Acid 500 Mg Chewable Tablet PO 1,000 mg DAILY AG Administration Atorvastatin Calcium 40 mg 02/15/20 21:00 02/19/20 20:21 Atorvastatin Calcium 40 Mg Tab PO 40 mg HS AG Administration Carvedilol 3.125 mg 02/15/20 17:00 02/20/20 08:36 Carvedilol 3.125 Mg Tab PO 3.125 mg BID-WM AG Administration Cholecalciferol 400 units 02/16/20 09:00 02/20/20 08:36 Cholecalciferol (Vitamin D3) 400 Units Tab PO 400 units DAILY AG Administration Dexamethasone 6 mg 02/17/20 21:00 02/20/20 08:36 Dexamethasone 4 Mg Tab PO 6 mg BID AG Administration Enoxaparin Sodium 40 mg 02/15/20 21:00 02/20/20 08:37 Enoxaparin Sodium 40 Mg/0.4 Ml Syringe SC 40 mg BID AG Administration Famotidine 20 mg 02/15/20 21:00 02/20/20 08:37 Famotidine 20 Mg Tab PO 20 mg BID AG Administration Levetiracetam 1,000 mg 02/15/20 21:00 02/20/20 08:37 Levetiracetam 500 Mg Tab PO 1,000 mg BID AG Administration Zinc Sulfate 220 mg 02/16/20 09:00 02/20/20 08:37 Zinc Sulfate 220 Mg Cap PO 220 mg DAILY AG Administration - Exam General Appearance: awake alert Eye: PERRL, anicteric sclera ENT: no oropharyngeal lesions, moist mucosa Neck: supple, no JVD Heart: RRR, no murmur Respiratory: no wheezes, no rales, rhonchi Gastrointestinal: soft, non-tender, non-distended, normal bowel sounds Extremities: no cyanosis, no edema Neurological: cranial nerve grossly intact, no focal deficits Psychiatric: A&O x 3 Hosp A/P (1) Pneumonia due to COVID-19 virus Code(s): U07.1 - COVID-19; J12.89 - OTHER VIRAL PNEUMONIA Status: Acute (2) Acute respiratory failure with hypoxia Code(s): J96.01 - ACUTE RESPIRATORY FAILURE WITH HYPOXIA Status: Acute (3) Glioblastoma multiforme Code(s): C71.9 - MALIGNANT NEOPLASM OF BRAIN, UNSPECIFIED Status: Chronic (4) Seizure disorder Code(s): G40.909 - EPILEPSY, UNSP, NOT INTRACTABLE, WITHOUT STATUS EPILEPTICUS Status: Chronic (5) Hyperlipidemia Code(s): E78.5 - HYPERLIPIDEMIA, UNSPECIFIED Status: Chronic Qualifiers: Hyperlipidemia type: unspecified Qualified Code(s): E78.5 - Hyperlipidemia, unspecified (6) Hypertension Code(s): I10 - ESSENTIAL (PRIMARY) HYPERTENSION Status: Chronic Qualifiers: Hypertension type: essential hypertension Qualified Code(s): I10 - Ess ential (primary) hypertension - Plan is on high flow O2, finished full course of remdesivir, got one dose convalescent plasma (02/16) and is on steroids. he is donot intubate. d/w and gave full updates daily. has h/o glioblastoma with progression per , not on any medications, they are waiting for experimental treatment/regimen at [facility] continue nebs, tapan, demetrisc, lipitor and coreg prognosis poor. counselled to lay on sides when on bed, oob to chair as tolerated PT eval with high flow ltac eval, taper flow and fio2 for spo2 of 90%
[2020-02-20] MEDS: Atorvastatin Calcium 40 MG TAB PO SCH (20:06)
[2020-02-21] MEDS: Zinc Sulfate 220 MG CAP PO SCH (09:34)
[2020-02-21] MEDS: Amlodipine 5 MG TAB PO SCH ×2 (09:34→22:22)
[2020-02-21] MEDS: Ascorbic Acid 500 mg Chewable Tablet PO SCH (09:34)
[2020-02-21] MEDS: Carvedilol 3.125 MG TAB PO SCH ×2 (09:34→16:45)
[2020-02-21] MEDS: levETIRAcetam 500 MG TAB PO SCH ×2 (09:34→22:22)
[2020-02-21] MEDS: Famotidine 20 MG TAB PO SCH ×2 (09:34→22:22)
[2020-02-21] MEDS: Enoxaparin Sodium 40 MG/0.4 ML SYRINGE SC SCH ×2 (09:35→22:21)
[2020-02-21] MEDS: Cholecalciferol (Vitamin D3) 400 UNITS TAB PO SCH (09:35)
[2020-02-21] MEDS: Dexamethasone 4 MG TAB PO SCH ×2 (09:35→22:22)
--- NOTE | 2020-02-21 13:49 | PDOC.HOSPP ---
- Subjective Encounter Date: 02/21/20 Encounter Time: 08:00 Subjective: awake, is awaiting his breakfast, feels better, no sob is comfortable on high flow, had a trial of nonrebreather for 2 hrs with spo2 >90% - Objective Vital Signs & Weight: Vital Signs (12 hours) Temp Pulse Resp BP Pulse Ox 02/21/20 11:52 98.1 F 57 L 20 133/74 96 02/21/20 10:00 97.9 F 74 18 145/84 H 97 02/21/20 09:30 97 02/21/20 08:10 97 02/21/20 06:00 53 L 93 L 02/21/20 02:40 54 L 98 Weight Weight 200 lb 12.8 oz Most Recent Monitor Data Heart Rate from ECG 69 NIBP 122/73 I&O: 02/20/20 02/21/20 02/22/20 06:59 06:59 06:59 Intake Total 2300 1180 Output Total 2725 2200 Balance -425 1020 Result Diagrams: 02/20/20 06:13 02/20/20 06:13 Hospitalist ROS - Medication Medications: Active Medications Generic Name Dose Route Start Last Admin Trade Name Freq PRN Reason Stop Dose Admin Acetaminophen 650 mg 02/15/20 13:24 02/16/20 09:46 Acetaminophen 325 Mg Tab PO 650 mg Q4H PRN Administration Headache/Fever/Mild Pain (1-3) Amlodipine Besylate 5 mg 02/15/20 21:00 02/21/20 09:34 Amlodipine 5 Mg Tab PO 5 mg BID AG Administration Ascorbic Acid 1,000 mg 02/16/20 09:00 02/21/20 09:34 Ascorbic Acid 500 Mg Chewable Tablet PO 1,000 mg DAILY AG Administration Atorvastatin Calcium 40 mg 02/15/20 21:00 02/20/20 20:06 Atorvastatin Calcium 40 Mg Tab PO 40 mg HS AG Administration Carvedilol 3.125 mg 02/15/20 17:00 02/21/20 09:34 Carvedilol 3.125 Mg Tab PO 3.125 mg BID-WM AG Administration Cholecalciferol 400 units 02/16/20 09:00 02/21/20 09:35 Cholecalciferol (Vitamin D3) 400 Units Tab PO 400 units DAILY AG Administration Dexamethasone 6 mg 02/17/20 21:00 02/21/20 09:35 Dexamethasone 4 Mg Tab PO 6 mg BID AG Administration Enoxaparin Sodium 40 mg 02/15/20 21:00 02/21/20 09:35 Enoxaparin Sodium 40 Mg/0.4 Ml Syringe SC 40 mg BID AG Administration Famotidine 20 mg 02/15/20 21:00 02/21/20 09:34 Famotidine 20 Mg Tab PO 20 mg BID AG Administration Levetiracetam 1,000 mg 02/15/20 21:00 02/21/20 09:34 Levetiracetam 500 Mg Tab PO 1,000 mg BID AG Administration Zinc Sulfate 220 mg 02/16/20 09:00 02/21/20 09:34 Zinc Sulfate 220 Mg Cap PO 220 mg DAILY AG Administration - Exam General Appearance: awake alert Eye: PERRL, anicteric sclera ENT: no oropharyngeal lesions, moist mucosa Neck: supple, no JVD Heart: RRR, no murmur Respiratory: no wheezes, rales, rhonchi Gastrointestinal: soft, non-tender, non-distended, normal bowel sounds Extremities: no cyanosis, no edema Neurological: cranial nerve grossly intact, no focal deficits Psychiatric: normal affect, A&O x 3 Hosp A/P (1) Pneumonia due to COVID-19 virus Code(s): U07.1 - COVID-19; J12.89 - OTHER VIRAL PNEUMONIA Status: Acute (2) Acute respiratory failure with hypoxia Code(s): J96.01 - ACUTE RESPIRATORY FAILURE WITH HYPOXIA Status: Acute (3) Glioblastoma multiforme Code(s): C71.9 - MALIGNANT NEOPLASM OF BRAIN, UNSPECIFIED Status: Chronic (4) Seizure disorder Code(s): G40.909 - EPILEPSY, UNSP, NOT INTRACTABLE, WITHOUT STATUS EPILEPTICUS Status: Chronic (5) Hyperlipidemia Code(s): E78.5 - HYPERLIPIDEMIA, UNSPECIFIED Status: Chronic Qualifiers: Hyperlipidemia type: unspecified Qualified Code(s): E78.5 - Hyperlipidemia, unspecified (6) Hypertension Code(s): I10 - ESSENTIAL (PRIMARY) HYPERTENSION Status: Chronic Qualifiers: Hypertension type: essential hypertension Qualified Code(s): I10 - Essential (primary) hypertension - Plan is on high flow O2, finished full course of remdesivir, got one dose convalescent plasma (02/16) and is on steroids. he is donot intubate. d/w and gave full updates daily. has h/o glioblastoma with progression per , not on any medications, they are waiting experimental treatment/regimen at [facility] continue nebs, keppra, norvasc, lipitor and coreg prognosis poor. counselled to lay on sides when on bed, oob to chair as tolerated PT eval with high flow/non rebreather ltac eval, taper flow and fio2 for spo2 of 90% had one trial of non rebreather for 2 hrs and maintained spo2 >90%, this is being done for ems transport if accepted to [facility]. and patient are aware of above plans if he remains stable
[2020-02-21] MEDS: Atorvastatin Calcium 40 MG TAB PO SCH (22:22)
[2020-02-22] MEDS: Enoxaparin Sodium 40 MG/0.4 ML SYRINGE SC SCH (08:16)
[2020-02-22] MEDS: Amlodipine 5 MG TAB PO SCH (08:17)
[2020-02-22] MEDS: Cholecalciferol (Vitamin D3) 400 UNITS TAB PO SCH (08:17)
[2020-02-22] MEDS: Famotidine 20 MG TAB PO SCH (08:17)
[2020-02-22] MEDS: Zinc Sulfate 220 MG CAP PO SCH (08:17)
[2020-02-22] MEDS: Carvedilol 3.125 MG TAB PO SCH (08:17)
[2020-02-22] MEDS: Dexamethasone 4 MG TAB PO SCH (08:17)
[2020-02-22] MEDS: Ascorbic Acid 500 mg Chewable Tablet PO SCH (08:17)
[2020-02-22] MEDS: levETIRAcetam 500 MG TAB PO SCH (08:17)
[2020-02-22] MEDS ORDERED: Ondansetron PF 4 MG/2 ML Vial IVP PRN (11:36)
[2020-02-22] MEDS ORDERED: Sodium Chloride 0.65% Nasal 44 ML BOT EA NARE PRN (11:36)
[2020-02-22] MEDS ORDERED: Zolpidem Tartrate 5 MG TAB PO PRN (11:36)
[2020-02-22] MEDS ORDERED: Ondansetron ODT 4 MG TAB PO PRN (11:36)
[2020-02-22] MEDS ORDERED: Cepastat Lozenges 1 LOZ PO PRN (11:36)
[2020-02-22] MEDS ORDERED: Loperamide HCl 2 MG CAP PO PRN (11:36)
[2020-02-22] MEDS ORDERED: Bisacodyl 5 MG TAB PO PRN (11:36)
[2020-02-22] MEDS ORDERED: Diabetic Tussin 200 MG/10 ML UDCUP PO PRN (11:36)
[2020-02-22] MEDS ORDERED: hydrALAZINE 20 MG/ML VIAL SLOW IVP PRN (11:36)
[2020-02-22] MEDS ORDERED: Calcium Carbonate 500 MG ChewTAB PO PRN (11:36)
[2020-02-22] MEDS ORDERED: Loratadine 10 MG TAB PO PRN (11:36)
[2020-02-22] MEDS ORDERED: Benzonatate 100 MG CAP PO PRN (11:36)
[2020-02-22] MEDS ORDERED: Senokot S 8.6-50 MG TAB PO PRN (11:36)
--- NOTE | 2020-02-22 11:36 | PDOC.HOSPP ---
- Subjective Encounter Date: 02/22/20 Encounter Time: 08:45 Subjective: Patient seen and examined bedside today, no overnight event, patient is overall doing better, he is still on high flow oxygen - Objective Vital Signs & Weight: Vital Signs (12 hours) Temp Pulse Resp BP Pulse Ox 02/22/20 08:32 97.9 F 58 L 20 117/66 94 L 02/22/20 08:20 94 L 02/22/20 06:00 96 Weight Weight 200 lb 12.8 oz Most Recent Monitor Data Heart Rate from ECG 69 NIBP 122/73 I&O: 02/21/20 02/22/20 02/23/20 06:59 06:59 06:59 Intake Total 1180 790 Output Total 2200 2950 Balance -1020 -2160 Result Diagrams: 02/20/20 06:13 02/20/20 06:13 Radiology Reviewed by me: Yes Hospitalist ROS - Review of Systems Constitutional: denies: fever, chills, sweats, weakness, malaise, other Eyes: denies: pain, vision change, conjunctivae inflammation, eyelid inflammation, redness, other ENT: denies: ear pain, ear discharge, nose pain, nose discharge, nose congestion, mouth pain, mouth swelling, throat pain, throat swelling, other Respiratory: reports: cough, shortness of breath, SOB with excertion. denies: dry, hemoptysis, pleuritic pain, sputum, wheezing, other Cardiovascular: denies: chest pain, palpitations, orthopnea, paroxysmal noc. dyspnea, edema, light headedness, other Gastrointestinal: denies: nausea, vomiting, abdominal pain, diarrhea, constipation, melena, hematochezia, other Genitourinary: denies: dysuria, frequency, incontinence, hematuria, retention, other Musculoskeletal: denies: neck pain, shoulder pain, arm pain, back pain, hand pain, leg pain, foot pain, other Skin: denies: rash, lesions, srini, bruising, other - Medication Medications: Active Medications Generic Name Dose Route Start Last Admin Trade Name Freq PRN Reason Stop Dose Admin Acetaminophen 650 mg 02/15/20 13:24 02/16/20 09:46 Acetaminophen 325 Mg Tab PO 650 mg Q4H PRN Administration Headache/Fever/Mild Pain (1-3) Amlodipine Besylate 5 mg 02/15/20 21:00 02/22/20 08:17 Amlodipine 5 Mg Tab PO 5 mg BID AG Administration Ascorbic Acid 1,000 mg 02/16/20 09:00 02/22/20 08:17 Ascorbic Acid 500 Mg Chewable Tablet PO 1,000 mg DAILY AG Administration Atorvastatin Calcium 40 mg 02/15/20 21:00 02/21/20 22:22 Atorvastatin Calcium 40 Mg Tab PO 40 mg HS AG Administration Carvedilol 3.125 mg 02/15/20 17:00 02/22/20 08:17 Carvedilol 3.125 Mg Tab PO 3.125 mg BID-WM AG Administration Cholecalciferol 400 units 02/16/20 09:00 02/22/20 08:17 Cholecalciferol (Vitamin D3) 400 Units Tab PO 400 units DAILY AG Administration Dexamethasone 6 mg 02/17/20 21:00 02/22/20 08:17 Dexamethasone 4 Mg Tab PO 6 mg BID AG Administration Enoxaparin Sodium 40 mg 02/15/20 21:00 02/22/20 08:16 Enoxaparin Sodium 40 Mg/0.4 Ml Syringe SC 40 mg BID AG Administration Famotidine 20 mg 02/15/20 21:00 02/22/20 08:17 Famotidine 20 Mg Tab PO 20 mg BID AG Administration Levetiracetam 1,000 mg 02/15/20 21:00 02/22/20 08:17 Levetiracetam 500 Mg Tab PO 1,000 mg BID AG Administration Zinc Sulfate 220 mg 02/16/20 09:00 02/22/20 08:17 Zinc Sulfate 220 Mg Cap PO 220 mg DAILY AG Administration - Exam General Appearance: NAD, awake alert Eye: PERRL, anicteric sclera ENT: normocephalic atraumatic, no oropharyngeal lesions Neck: supple, symmetric, no JVD, no thyromegaly Heart: no murmur, no gallops, no rubs Heart - other findings: Respiratory: no wheezes, no rales, no ronchi Respiratory - other findings: Air entry reduced at base Gastrointestinal: soft, non-tender, non-distended, normal bowel sounds Extremities: no clubbing, no edema Skin: normal turgor, no lesions Neurological: no focal deficits Musculoskeletal: normal tone, normal strength Psychiatric: normal affect, normal behavior Hosp A/P (1) Acute respiratory failure with hypoxia Code(s): J96.01 - ACUTE RESPIRATORY FAILURE WITH HYPOXIA Status: Acute (2) COVID-19 virus infection Code(s): U07.1 - COVID-19 Status: Acute (3) Pneumonia due to COVID-19 virus Code(s): U07.1 - COVID-19; J12.89 - OTHER VIRAL PNEUMONIA Status: Acute (4) Glioblastoma multiforme Code(s): C71.9 - MALIGNANT NEOPLASM OF BRAIN, UNSPECIFIED Status: Chronic (5) Seizure disorder Code(s): G40.909 - EPILEPSY, UNSP, NOT INTRACTABLE, WITHOUT STATUS EPILEPTICUS Status: Chronic (6) Hyperlipidemia Code(s): E78.5 - HYPERLIPIDEMIA, UNSPECIFIED Status: Chronic Qualifiers: Hyperlipidemia type: unspecified Qualified Code(s): E78.5 - Hyperlipidemia, unspecified (7) Hypertension Code(s): I10 - ESSENTIAL (PRIMARY) HYPERTENSION Status: Chronic Qualifiers: Hypertension type: essential hypertension Qualified Code(s): I10 - Essential (primary) hypertension - Plan old records reviewed/req I have reviewed his current medication and continue to provide symptomatic and supportive care, patient is overall stable, Continue to wean off oxygen I tried to reach out to [facility] Dr. Kelley but so far no response to update about patient's condition Patient is eventual plan to go to LTAC to wean off oxygen when accepted.
--- NOTE | 2020-02-22 12:11 | PDOC.DS.DS ---
Provider - Provider Date of Admission: 02/16/20 08:06 Date of Discharge: 02/22/20 Admitting Provider: Peter Clarke MD Consultations: Pulmonary Primary Care Physician: Carlos Monson MD Course - Hospital Course Hospital Course: 69-year-old male who was admitted on February 15, [address] Luther please see his H&P for further detail. Patient was admitted for acute respiratory failure secondary to COVID-19 pneumonia, patient has finished remdesivir therapy while in hospital, and he also received 1 dose of convalescent plasma. He was on steroid. Patient has partial code, he was on high flow oxygen and it was taking long time to wean off that is why with help of sample case porter to be arranged LTAC. I spoke with Dr. Kelley at the [facility] and he accepted this patient for further care. Overall patient is medically stable for discharge today. Please see my progress note from today for more detail. Resuscitation Status: 02/17/20 11:22 Resuscitation Status Routine Resuscitation Status: PRTL: Cardiac only Discussed with: confirmed with pt and his - Labs Lab Results: 02/20/20 06:13 02/20/20 06:13 Abnormal Lab Results - Last 48 hrs 02/21/20 07:24: C-Reactive Protein 1.31 H 02/21/20 07:24: Ferritin 609.58 H 02/22/20 08:13: C-Reactive Protein 2.22 H 02/22/20 08:13: Ferritin 714.23 H - Diagnostic Interpretation Chest x-ray Status: image reviewed by me Additional comments: Chest x-ray was consistent with Covid pneumonia. - Physical Exam Vitals: Vital Signs (12 hours) Temp Pulse Resp BP Pulse Ox 02/22/20 08:32 97.9 F 58 L 20 117/66 94 L 02/22/20 08:20 94 L 02/22/20 06:00 96 Weight Weight 200 lb 12.8 oz Most Recent Monitor Data Heart Rate from ECG 69 NIBP 122/73 Physical Exam: The patient was seen and examined on the day of discharge. Problem - Problem (1) Acute respiratory failure with hypoxia Code(s): J96.01 - ACUTE RESPIRATORY FAILURE WITH HYPOXIA Status: Acute (2) COVID-19 virus infection Code(s): U07.1 - COVID-19 Status: Acute (3) Pneumonia due to COVID-19 virus Code(s): U07.1 - COVID-19; J12.89 - OTHER VIRAL PNEUMONIA Status: Acute (4) Glioblastoma multiforme Code(s): C71.9 - MALIGNANT NEOPLASM OF BRAIN, UNSPECIFIED Status: Chronic (5) Seizure disorder Code(s): G40.909 - EPILEPSY, UNSP, NOT INTRACTABLE, WITHOUT STATUS EPILEPTICUS Status: Chronic (6) Hyperlipidemia Code(s): E78.5 - HYPERLIPIDEMIA, UNSPECIFIED Status: Chronic Qualifiers: Hyperlipidemia type: unspecified Qualified Code(s): E78.5 - Hyperlipidemia, unspecified (7) Hypertension Code(s): I10 - ESSENTIAL (PRIMARY) HYPERTENSION Status: Chronic Qualifiers: Hypertension type: essential hypertension Qualified Code(s): I10 - Essential (primary) hypertension Plan - Discharge Medications Prescriptions: Dexamethasone [Decadron] 6 mg PO BID #16 tab Famotidine [Pepcid] 20 mg PO BID #60 tab Albuterol Sulfate HFA (OR) [Proventil Hfa (or)] 2 puff INH Q6H #1 inh Home Medications: Medication Instructions Recorded Confirmed Type Atorvastatin Calcium 40 mg PO HS 05/28/18 02/15/20 History Carvedilol [Coreg] 3.125 mg PO BID-WM #60 tab 06/02/18 02/15/20 Rx Amlodipine [Norvasc] 5 mg PO BID 02/01/20 02/15/20 History levETIRAcetam [Keppra] 1,000 mg PO BID #60 tablet 02/04/20 02/15/20 Rx Albuterol Sulfate HFA (OR) 2 puff INH Q6H #1 inh 02/21/20 Rx [Proventil Hfa (or)] Dexamethasone [Decadron] 6 mg PO BID #16 tab 02/21/20 Rx Famotidine [Pepcid] 20 mg PO BID #60 tab 02/21/20 Rx Allergies: codeine Allergy (Verified 02/15/20 21:25) Emesis - Discharge Instructions Activity:: Activity as Tolerated Nourishment:: Heart Healthy Diet Therapies:: Occupational Therapy, Physical Therapy Equipment/Supplies:: Incentive Spirometry, Nebulizer Treatments, Oxygen IV Therapy:: Not Applicable - Follow up Plan Referrals: Carlos Monson MD [Primary Care Provider] - 7 Days Disposition: OTHER HOSPITAL INPT Quality - Care Measures CORE MEASURES:: N/A
[2020-02-22 15:43] VITALS: BP 129/71; TEMP 97.8
--- NOTE | 2020-02-22 15:56 | EKG ---
Test Reason : DYSPNEA Blood Pressure : / mmHG Vent. Rate : 076 BPM Atrial Rate : 076 BPM P-R Int : 150 ms QRS Dur : 086 ms QT Int : 348 ms P-R-T Axes : 048 009 045 degrees QTc Int : 391 ms Normal sinus rhythm Normal ECG Confirmed by SAJI ALVARENGA ([id number]), legal editor YVES BROWNING ([id number]) on 02/22/2020 3:55:40 PM Referred By: Confirmed By:SAJI ALVARENGA
--- NOTE | 2020-02-24 15:45 | PQF ---
CLINICAL DOCUMENTATION CLARIFICATION FORM: Dear Dr. Robbin Franco Date: 02-24-20 Please exercise your independent, professional judgment in responding to the clarification form. Clinical indicators are provided on the bottom of this form for your review. Please check appropriate box(es): [ ] Viral Sepsis due to COVID-19/PNA [ x ] Severe Viral Sepsis due to COVID-19/PNA w/ Acute Hypoxic Respiratory [ ] COVID-19/PNA only no Sepsis [ ] Other diagnosis [ ] Unable to determine For continuity of documentation, please document condition throughout progress notes and discharge summary. Thank You. To be completed by CDI/Coding staff for physician review: CLINICAL INDICATORS - SIGNS / SYMPTOMS / LABS / RESULTS AND LOCATION IN MR 11.14 ED: *WBC 13.5 * P 65-79 * T 99.6 Oral * RR 18-28 * O2 Sat 86% on RA - 93-96% on 2LNC 11.14 H&P ([facility]): * Acute Hypoxia Respiratory Failure * COVID-19; glioblastoma multiforme; seizure disorder; 11[facility] Pneumonia d/t COVID-19 virus RISK FACTORS / RESULTS AND LOCATION IN MR 11.14 H&P ([facility]): *Recent admission w/ partial seizures r/t cerebral edema *Glioblastoma Multiforme plan for OP oral chemo *Subsequently, he and his family have all been dx w/ COVID TREATMENTS / RESULTS AND LOCATION IN MR 11.14 H&P ([facility]): * supplemental oxygen *decadron for COVID 11.15 [facility] *He is on Remedesivir, dexamethasone, nebs, keppra, Norvasc, Lipitor, and coreg *Went from nasal canula, ventimask to high flow O@ now. Potential intubation if gets worse. CDS Signature: Mónica Mcgowan RN, CCDS Phone #: [phone] [email or web address] This is a permanent part of the Medical Record [facility]
== END 2020-02-22 16:27 | DRG 871 ==
LOC: ERS 10:22 → T4-A 12:22 → OBSVTOIN 02-16 08:06
PROVIDERS: ADMIT Internal Medicine; ATTEND Internal Medicine
PROC: 8E0ZXY6 Isolation (ICD-10-PCS; principal; 2020-02-15)
PROC: XW033E5 Introduction of Remdesivir Anti-infective into Peripheral Vein, Percutaneous Approach, New Technology Group 5 (ICD-10-PCS; 2020-02-15)
PROC: XW13325 Transfusion of Convalescent Plasma (Nonautologous) into Peripheral Vein, Percutaneous Approach, New Technology Group 5 (ICD-10-PCS; 2020-02-17)
DX: A41.89 Other specified sepsis (principal); U07.1 COVID-19; J96.01 Acute respiratory failure with hypoxia; J12.89 Other viral pneumonia; C71.9 Malignant neoplasm of brain, unspecified; R65.20 Severe sepsis without septic shock; G40.909 Epilepsy, unspecified, not intractable, without status epilepticus; E78.5 Hyperlipidemia, unspecified; I10 Essential (primary) hypertension; E78.00 Pure hypercholesterolemia, unspecified; Z96.641 Presence of right artificial hip joint; Z88.5 Allergy status to narcotic agent; Z79.899 Other long term (current) drug therapy
CPT/HCPCS: 36415; 36430; 71045; 80048; 80053; 82728; 83880; 84484; 85025; 85379; 86140; 86850; 86900; 86901; 93005; 96365; 96367; 96372; 96375; G0378; J0456; J0696; J1100; J1650; J7050; J8540; P9017

== ENCOUNTER 2020-07-23 14:21 | Inpatient (IN) | payer MEDICARE, BC ==
[2020-07-23 16:11] LABS: #Eosinphils 0.1 thou/uL (0.0-0.7); #Lymphocytes 1.1 thou/uL (1.20-3.40); #Monocytes 0.4 thou/uL (0.11-0.59); #Neutrophils 8.1 thou/uL (1.40-6.50); %Basophils 0.2 % (0.0-1.0); %Eosinophils 0.6 % (0.0-10.0); %Lymphocytes 11.6 % (21.0-51.0); %Monocytes 4.1 % (0.0-10.0); %Neutrophils 83.5 % (42.0-75.0); Hemoglobin 14.5 g/dL (14.0-18.0); Mean Corpuscular HGB CONC 34.6 g/dL (32.0-36.0); Mean Corpuscular Hemoglobin 32.2 pg (27.0-31.0); Mean Corpuscular Volume 93.2 fL (78.0-98.0); Mean Platelet Volume 6.9 fL (7.4-10.4); Platelet Count 156 thou/uL (130-400); RBC Distribution Width 14.6 % (11.5-14.5); Red Blood Cell (RBC) Count 4.51 mill/uL (4.70-6.10); White Blood Cell (WBC) Count 9.7 thou/uL (4.8-10.8)
[2020-07-23 16:33] LABS: ALT (SGPT) 56 U/L (8-55); AST (SGOT) 18 U/L (5-34); Albumin 3.6 g/dL (3.4-4.8); Alkaline Phosphatase 85 U/L (40-110); Anion Gap 15 mmol/L (10-20); BUN (Urea Nitrogen) 25 mg/dL (8.4-25.7); Bilirubin, Total 0.5 mg/dL (0.2-1.2); Calc. Creatinine Clearance 0 mL/min (70-130); Carbon Dioxide 23 mmol/L (23-31); Chloride 101 mmol/L (98-107); Globulin 2.6 g/dL (2.4-3.5); Glucose 366 mg/dL (80-115); Potassium 4.4 mmol/L (3.5-5.1); Protein, Total 6.2 g/dL (5.8-8.1); Sodium 135 mmol/L (136-145)
[2020-07-23] MEDS ORDERED: Calcium Carbonate 500 MG ChewTAB PO PRN (18:09)
[2020-07-23] MEDS ORDERED: Ondansetron PF 4 MG/2 ML Vial IVP PRN (18:09)
[2020-07-23] MEDS ORDERED: Guaifenesin DM 100-10/5 ML UDCUP PO PRN (18:09)
[2020-07-23] MEDS ORDERED: Acetaminophen 325 MG TAB PO PRN (18:09)
[2020-07-23] MEDS ORDERED: HumaLOG 300 UNITS/3 ML VIAL SC PRN (18:09)
[2020-07-23] MEDS ORDERED: Dextrose 5% in Water 1,000 ML IV PRN (18:09)
[2020-07-23] MEDS ORDERED: Bisacodyl 10 MG SUPP PR PRN (18:09)
[2020-07-23] MEDS ORDERED: Senokot S 8.6-50 MG TAB PO PRN (18:09)
[2020-07-23] MEDS ORDERED: Lorazepam 2 MG/ML VIAL SLOW IVP PRN (18:09)
[2020-07-23] MEDS ORDERED: Dextrose 50% Abboject 50 ML SYRINGE SLOW IVP PRN (18:09)
[2020-07-23] MEDS ORDERED: levETIRAcetam 500 MG TAB PO SCH (21:00)
[2020-07-23] MEDS ORDERED: Atorvastatin Calcium 40 MG TAB PO SCH (21:00)
[2020-07-23 22:20] VITALS: BMI 28.5
[2020-07-23] MEDS: Albuterol Sulfate 2.5 mg/3 ml Neb NEB SCH ×2 (23:07→23:21)
[2020-07-24] MEDS: Dexamethasone 4 mg/ml Vial SLOW IVP SCH ×3 (01:48→11:01)
[2020-07-24] MEDS: Lacosamide 50 mg Tablet PO SCH ×2 (01:50→10:58)
[2020-07-24] MEDS: Amlodipine 5 MG TAB PO SCH ×2 (01:50→11:00)
[2020-07-24 03:28] LABS: SARS-CoV-2 NAA Rapid Test Not Detected (NotDetected)
[2020-07-24 04:44] LABS: #Lymphocytes 1.1 thou/uL (1.20-3.40); #Monocytes 0.3 thou/uL (0.11-0.59); #Neutrophils 6.6 thou/uL (1.40-6.50); %Basophils 0.1 % (0.0-1.0); %Eosinophils 0.5 % (0.0-10.0); %Lymphocytes 13.2 % (21.0-51.0); %Monocytes 4.1 % (0.0-10.0); %Neutrophils 82.1 % (42.0-75.0); Hemoglobin 14.1 g/dL (14.0-18.0); Mean Corpuscular HGB CONC 34.8 g/dL (32.0-36.0); Mean Corpuscular Hemoglobin 32.5 pg (27.0-31.0); Mean Corpuscular Volume 93.2 fL (78.0-98.0); Mean Platelet Volume 7.1 fL (7.4-10.4); Platelet Count 128 thou/uL (130-400); RBC Distribution Width 14.4 % (11.5-14.5); Red Blood Cell (RBC) Count 4.35 mill/uL (4.70-6.10); White Blood Cell (WBC) Count 8.1 thou/uL (4.8-10.8)
[2020-07-24 05:34] LABS: Anion Gap 13 mmol/L (10-20); BUN (Urea Nitrogen) 15 mg/dL (8.4-25.7); Calc. Creatinine Clearance 127 mL/min (70-130); Carbon Dioxide 30 mmol/L (23-31); Chloride 102 mmol/L (98-107); Glucose 233 mg/dL (80-115); Magnesium 2.1 mg/dL (1.6-2.6); Potassium 3.9 mmol/L (3.5-5.1); Sodium 141 mmol/L (136-145)
[2020-07-24] MEDS: HumaLOG 300 UNITS/3 ML VIAL SC PRN ×2 (06:35→11:14)
[2020-07-24] MEDS: Albuterol Sulfate 2.5 mg/3 ml Neb NEB SCH ×2 (07:01→13:15)
[2020-07-24] MEDS ORDERED: Carvedilol 3.125 MG TAB PO SCH (08:00)
[2020-07-24] MEDS ORDERED: levETIRAcetam 500 mg/5 ml Oral Solution PER TUBE SCH (09:00)
[2020-07-24] MEDS ORDERED: Pantoprazole 40 MG GRANULES PACKET PO SCH (09:00)
[2020-07-24] MEDS ORDERED: Enoxaparin Sodium 40 MG/0.4 ML SYRINGE SC SCH (09:00)
[2020-07-24 11:31] VITALS: BP 139/90; TEMP 96.9
[2020-07-24] MEDS ORDERED: Lacosamide 50 mg Tablet PO SCH (21:00)
== END 2020-07-24 15:15 | disposition home health service (06) | DRG 54 ==
LOC: ERS 14:21 → 2SE 17:53
PROVIDERS: ADMIT Internal Medicine; ATTEND Internal Medicine
DX: C71.9 Malignant neoplasm of brain, unspecified (principal); G93.6 Cerebral edema; G40.209 Localization-related (focal) (partial) symptomatic epilepsy and epileptic syndromes with complex partial seizures, not intractable, without status epilepticus; I10 Essential (primary) hypertension; E78.5 Hyperlipidemia, unspecified; Z96.651 Presence of right artificial knee joint; Z20.822 Contact with and (suspected) exposure to COVID-19; Z85.828 Personal history of other malignant neoplasm of skin; Z88.5 Allergy status to narcotic agent; Z98.890 Other specified postprocedural states
CPT/HCPCS: 0240U; 36415; 36416; 70450; 80048; 80053; 80177; 80339; 83735; 84443; 85025; 94640; 95712; 95819; 95957; G0480; J1100; J1650; J1815; J7611

== ENCOUNTER 2020-09-06 11:59 | Inpatient (IN) | payer MEDICARE, BC ==
[2020-09-06] MEDS ORDERED: levETIRAcetam 500 MG/100 ML PREMIX BAG ONE (12:41)
[2020-09-06] MEDS ORDERED: Cefepime 2 GM VIAL ONE (12:43)
[2020-09-06] MEDS ORDERED: Vancomycin 1 GM/200 ML BAG ONE (12:43)
[2020-09-06] MEDS ORDERED: levETIRAcetam 2,000 MG in Sodium Chloride 0.9% 100 ML IVPB SCH (12:45)
[2020-09-06 13:04] LABS: ALT (SGPT) 52 U/L (8-55); AST (SGOT) 22 U/L (5-34); Albumin 3.6 g/dL (3.4-4.8); Alkaline Phosphatase 81 U/L (40-110); Anion Gap 15 mmol/L (10-20); BUN (Urea Nitrogen) 12 mg/dL (8.4-25.7); Bilirubin, Total 0.5 mg/dL (0.2-1.2); CK (CPK) 35 U/L (30-200); Calc. Creatinine Clearance 0 mL/min (70-130); Calcium 8.5 mg/dL (7.8-10.44); Carbon Dioxide 27 mmol/L (23-31); Chloride 104 mmol/L (98-107); Globulin 2.6 g/dL (2.4-3.5); Glucose 107 mg/dL (80-115); Potassium 3.3 mmol/L (3.5-5.1); Protein, Total 6.2 g/dL (5.8-8.1); Sodium 143 mmol/L (136-145)
[2020-09-06 13:08] LABS: #Lymphocytes 0.6 thou/uL (1.20-3.40); #Monocytes 0.3 thou/uL (0.11-0.59); #Neutrophils 6.1 thou/uL (1.40-6.50); %Basophils 0.2 % (0.0-1.0); %Eosinophils 0.4 % (0.0-10.0); %Lymphocytes 8.6 % (21.0-51.0); %Monocytes 4.8 % (0.0-10.0); %Neutrophils 86.1 % (42.0-75.0); Hemoglobin 12.8 g/dL (14.0-18.0); Mean Corpuscular HGB CONC 34.5 g/dL (32.0-36.0); Mean Corpuscular Hemoglobin 33.9 pg (27.0-31.0); Mean Corpuscular Volume 98.4 fL (78.0-98.0); Mean Platelet Volume 7.1 fL (7.4-10.4); Platelet Count 142 thou/uL (130-400); RBC Distribution Width 15.1 % (11.5-14.5); Red Blood Cell (RBC) Count 3.76 mill/uL (4.70-6.10); White Blood Cell (WBC) Count 7.1 thou/uL (4.8-10.8)
[2020-09-06 13:33] LABS: CKMB 0.6 ng/mL (0-6.6)
[2020-09-06 14:08] LABS: Bilirubin Negative (Negative); Blood, Urine Negative (Negative); Clarity Clear (Clear); Glucose, Urine (Dipstick) Negative (Negative); Ketone, Urine Negative (Negative); Leukocyte Negative (Negative); Nitrite Negative (Negative); Protein, Urine (Dipstick) Negative (Neg-Trace); Urobilinogen 0.2 mg/dL (Less than 2); pH, Urine 6.5 (5.0-9.0)
[2020-09-06] MEDS ORDERED: Acetaminophen 650 MG Suppository ONE (14:44)
[2020-09-06] MEDS ORDERED: Ketorolac Tromethamine 30 MG/ML VIAL ONE (14:46)
[2020-09-06] MEDS ORDERED: Potassium Chloride 20 MEQ in Premix Bag 1 BAG IVPB SCH (15:00)
[2020-09-06] MEDS ORDERED: Magnesium Sulfate 4 GM in Sodium Chloride 0.9% 250 ML 250 ML IVPB SCH (15:00)
[2020-09-06] MEDS ORDERED: Lorazepam 2 MG/ML VIAL SLOW IVP PRN (15:42)
[2020-09-06] MEDS ORDERED: Dextrose 5% in Water 1,000 ML IV PRN (15:47)
[2020-09-06] MEDS ORDERED: Dextrose 50% Abboject 50 ML SYRINGE SLOW IVP PRN (15:47)
[2020-09-06] MEDS ORDERED: HumaLOG 300 UNITS/3 ML VIAL SC PRN ×2 (15:47)
[2020-09-06 18:06] VITALS: BMI 29.9
[2020-09-06] MEDS: MEROPENEM 1 GM/50 ML 1 GM in Premix Bag 1 BAG IVPB SCH (18:47)
[2020-09-06 19:09] LABS: Troponin I 0.029 ng/mL (< 0.028)
[2020-09-06] MEDS: Fosphenytoin Sodium 100 MG in Sodium Chloride 0.9% 50 ML IVPB SCH (23:58)
[2020-09-07] MEDS: Acetaminophen 650 MG Suppository PR PRN ×2 (00:35→04:09)
[2020-09-07] MEDS: MEROPENEM 1 GM/50 ML 1 GM in Premix Bag 1 BAG IVPB SCH ×3 (02:52→17:03)
[2020-09-07] MEDS: VANCOMYCIN 1.25 GM/250 ML BAG 1.25 GM in Premix Bag 1 BAG IVPB SCH ×2 (03:57→14:29)
[2020-09-07 05:24] LABS: ALT (SGPT) 46 U/L (8-55); AST (SGOT) 26 U/L (5-34); Albumin 2.8 g/dL (3.4-4.8); Alkaline Phosphatase 58 U/L (40-110); Anion Gap 11 mmol/L (10-20); BUN (Urea Nitrogen) 12 mg/dL (8.4-25.7); Bilirubin, Total 0.4 mg/dL (0.2-1.2); Calc. Creatinine Clearance 149 mL/min (70-130); Calcium 7.9 mg/dL (7.8-10.44); Carbon Dioxide 23 mmol/L (23-31); Chloride 109 mmol/L (98-107); Globulin 2.2 g/dL (2.4-3.5); Glucose 104 mg/dL (80-115); Magnesium 2.1 mg/dL (1.6-2.6); Potassium 3.1 mmol/L (3.5-5.1); Sodium 140 mmol/L (136-145)
[2020-09-07 05:53] LABS: #Lymphocytes 0.6 thou/uL (1.20-3.40); #Monocytes 0.6 thou/uL (0.11-0.59); #Neutrophils 4.3 thou/uL (1.40-6.50); %Basophils 0.4 % (0.0-1.0); %Eosinophils 0.5 % (0.0-10.0); %Lymphocytes 11.1 % (21.0-51.0); %Monocytes 11.1 % (0.0-10.0); %Neutrophils 76.9 % (42.0-75.0); Mean Corpuscular HGB CONC 34.8 g/dL (32.0-36.0); Mean Corpuscular Hemoglobin 33.8 pg (27.0-31.0); Mean Corpuscular Volume 97.1 fL (78.0-98.0); Mean Platelet Volume 7.2 fL (7.4-10.4); Platelet Count 106 thou/uL (130-400); Platelet Morphology Comment Appears Decreased; Red Blood Cell (RBC) Count 3.54 mill/uL (4.70-6.10); White Blood Cell (WBC) Count 5.6 thou/uL (4.8-10.8)
[2020-09-07] MEDS ORDERED: Potassium Chloride 20 MEQ in Premix Bag 1 BAG IVPB SCH ×2 (08:15→08:30)
[2020-09-07] MEDS: Fosphenytoin Sodium 100 MG in Sodium Chloride 0.9% 50 ML IVPB SCH ×3 (08:54→22:58)
[2020-09-07] MEDS ORDERED: Non-Formulary Item 1 EACH (Carvedilol [Coreg] 12.5 MG Tab) PO SCH (09:00)
[2020-09-07] MEDS ORDERED: DEXAMETHASONE 2 MG PO SCH (09:00)
[2020-09-07] MEDS ORDERED: Amlodipine 5 MG TAB PO SCH (09:00)
[2020-09-07] MEDS ORDERED: LACOSAMIDE 150 MG PO SCH (09:00)
[2020-09-07] MEDS: Lacosamide 50 mg Tablet PO SCH ×2 (09:01→22:48)
[2020-09-07] MEDS: levETIRAcetam 500 mg/5 ml Oral Solution PO SCH ×2 (09:02→22:43)
[2020-09-07] MEDS: Carvedilol 6.25 MG TAB PO SCH ×2 (09:03→22:45)
[2020-09-07] MEDS: Amlodipine 10 MG TAB PO SCH (09:47)
[2020-09-07] MEDS: Dexamethasone 1 MG TAB PO SCH ×2 (09:49→22:45)
[2020-09-07] MEDS: Atorvastatin Calcium 40 MG TAB PO SCH (22:48)
[2020-09-08] MEDS: MEROPENEM 1 GM/50 ML 1 GM in Premix Bag 1 BAG IVPB SCH ×3 (03:13→19:05)
[2020-09-08 03:30] LABS: Vancomycin, Trough 11.2 ug/mL
[2020-09-08] MEDS: VANCOMYCIN 1.25 GM/250 ML BAG 1.25 GM in Premix Bag 1 BAG IVPB SCH (05:03)
[2020-09-08] MEDS: Vancomycin 1.5 GRAM/300 ML BAG 1.5 GM in Premix Bag 1 BAG IVPB SCH ×2 (05:05→15:24)
[2020-09-08 08:27] LABS: Anion Gap 11 mmol/L (10-20); BUN (Urea Nitrogen) 11 mg/dL (8.4-25.7); Calc. Creatinine Clearance 172 mL/min (70-130); Calcium 7.8 mg/dL (7.8-10.44); Carbon Dioxide 26 mmol/L (23-31); Chloride 110 mmol/L (98-107); Glucose 95 mg/dL (80-115); Potassium 3.5 mmol/L (3.5-5.1); Sodium 143 mmol/L (136-145)
[2020-09-08] MEDS: Lacosamide 50 mg Tablet PO SCH ×2 (09:18→21:35)
[2020-09-08] MEDS: Dexamethasone 1 MG TAB PO SCH ×2 (09:19→21:34)
[2020-09-08] MEDS: Amlodipine 10 MG TAB PO SCH (09:19)
[2020-09-08] MEDS: Carvedilol 6.25 MG TAB PO SCH ×2 (09:19→21:34)
[2020-09-08] MEDS: levETIRAcetam 500 mg/5 ml Oral Solution PO SCH ×2 (09:19→21:33)
[2020-09-08] MEDS: Fosphenytoin Sodium 100 MG in Sodium Chloride 0.9% 50 ML IVPB SCH ×3 (09:23→23:56)
[2020-09-08] MEDS: Atorvastatin Calcium 40 MG TAB PO SCH (21:35)
[2020-09-09] MEDS: MEROPENEM 1 GM/50 ML 1 GM in Premix Bag 1 BAG IVPB SCH ×2 (02:27→09:45)
[2020-09-09] MEDS: Vancomycin 1.5 GRAM/300 ML BAG 1.5 GM in Premix Bag 1 BAG IVPB SCH (04:31)
[2020-09-09 06:05] LABS: Anion Gap 11 mmol/L (10-20); BUN (Urea Nitrogen) 9 mg/dL (8.4-25.7); Calc. Creatinine Clearance 182 mL/min (70-130); Calcium 7.6 mg/dL (7.8-10.44); Carbon Dioxide 26 mmol/L (23-31); Chloride 112 mmol/L (98-107); Glucose 115 mg/dL (80-115); Potassium 3.5 mmol/L (3.5-5.1); Sodium 145 mmol/L (136-145)
[2020-09-09 06:32] LABS: #Eosinphils 0.1 thou/uL (0.0-0.7); #Lymphocytes 1.1 thou/uL (1.20-3.40); #Monocytes 0.5 thou/uL (0.11-0.59); #Neutrophils 2.8 thou/uL (1.40-6.50); %Basophils 0.1 % (0.0-1.0); %Eosinophils 2.8 % (0.0-10.0); %Lymphocytes 24.7 % (21.0-51.0); %Monocytes 10.9 % (0.0-10.0); %Neutrophils 61.5 % (42.0-75.0); MDiff Complete? YES; Mean Corpuscular HGB CONC 34.8 g/dL (32.0-36.0); Mean Corpuscular Hemoglobin 33.9 pg (27.0-31.0); Mean Corpuscular Volume 97.3 fL (78.0-98.0); Mean Platelet Volume 9.3 fL (7.4-10.4); Platelet Clumps SLIGHT; Platelet Count 106 thou/uL (130-400); Platelet Morphology Comment Appears Decreased; RBC Distribution Width 14.3 % (11.5-14.5); Red Blood Cell (RBC) Count 3.26 mill/uL (4.70-6.10); White Blood Cell (WBC) Count 4.6 thou/uL (4.8-10.8)
[2020-09-09] MEDS: Dexamethasone 1 MG TAB PO SCH (09:45)
[2020-09-09] MEDS: Fosphenytoin Sodium 100 MG in Sodium Chloride 0.9% 50 ML IVPB SCH ×2 (09:45→16:19)
[2020-09-09] MEDS: Carvedilol 6.25 MG TAB PO SCH (09:46)
[2020-09-09] MEDS: levETIRAcetam 500 mg/5 ml Oral Solution PO SCH (09:46)
[2020-09-09] MEDS: Lacosamide 50 mg Tablet PO SCH (09:47)
[2020-09-09] MEDS: Amlodipine 10 MG TAB PO SCH (09:48)
[2020-09-09] MEDS ORDERED: diphenhydrAMINE 25 MG CAP PO PRN (13:37)
[2020-09-09 15:38] VITALS: BP 107/62; TEMP 97.9
[2020-09-09 15:43] LABS: Vancomycin, Trough 12.8 ug/mL
[2020-09-09] MEDS ORDERED: VANCOMYCIN 1.75 GM/350 ML BAG 1.75 GM in Premix Bag 1 BAG IVPB SCH (16:00)
== END 2020-09-09 19:24 | disposition home health service (06) | DRG 100 ==
LOC: ERS 11:59 → 2SE 13:48 → SURG A 09-07 14:19 → 2SE 09-07 14:34
PROVIDERS: ADMIT Internal Medicine; ATTEND Internal Medicine
DX: G40.909 Epilepsy, unspecified, not intractable, without status epilepticus (principal); J69.0 Pneumonitis due to inhalation of food and vomit; C71.9 Malignant neoplasm of brain, unspecified; E78.5 Hyperlipidemia, unspecified; I10 Essential (primary) hypertension; E11.69 Type 2 diabetes mellitus with other specified complication; E66.9 Obesity, unspecified; E83.42 Hypomagnesemia; Z96.641 Presence of right artificial hip joint; Z88.5 Allergy status to narcotic agent; Z79.899 Other long term (current) drug therapy; Z98.890 Other specified postprocedural states; Z98.49 Cataract extraction status, unspecified eye; Z68.29 Body mass index [BMI] 29.0-29.9, adult; Z91.14 Patient's other noncompliance with medication regimen
CPT/HCPCS: 36415; 36416; 51701; 70450; 71045; 74230; 80048; 80177; 80185; 80202; 81003; 82550; 82553; 83605; 83735; 84145; 84146; 84484; 85025; 87077; 87086; 87186; 93005; 95712; 95819; 95957; 96365; 96367; 96368; 96375; J0692; J1815; J1885; J1953; J2185; J3370; J3475; J3480; J3490; J7050; J8540; Q0163; Q2009